=== PATIENT | male | born 1985 | race Caucasian/White ===

== ENCOUNTER 2025-02-13 10:53 | Emergency (ER) | payer BC, SELFPAY ==
[2025-02-13 11:07] VITALS: BP 138/84; PULSE 89; RESP 16; TEMP 36.6; O2SAT 100
--- OUTSIDE RECORDS SUMMARY | 2025-02-13 11:15 | XMS_ITS | Continuity of Care Document ---
Author Name [facility] Organization [facility] Care Team Providers Care Second Worker Name Role Phone [facility] Unavailable Unavailable Problems Combined list of problems from Department of Defense and Veterans Affairs facilities. It does not include entries that were removed or entered in error. 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 19 Condition [facility] Pain in left knee Active 11/08/19 19 Condition [facility] Pain in left thigh Active 11/08/19 19 Condition [facility] visit for: screening exam Inactive 05/25/20 11 Condition [facility] Adjustment disorder Active Condition [facility] Allergic Rhinitis ([facility] [id number]) Active Condition [facility] Chronic Pain Due to Injury ([facility] [id number]) Active Condition [facility] Exposure to potentially hazardous substance Active Condition [facility] Hyperlipidemia ([facility] [id number]) Active Condition [facility] Obstructive Sleep Apnea Syndrome ([facility] [id number]) Active Condition [facility] Past history of procedure Active Condition Nov 05, 2019 Entered By: JESSICA NICE Comment: 2010 left hip and leg shrapnel removal and femur fracture repair surgeries x 6Jan 2019 Entered By: JESSICA NICE Comment: 2015 vasectomyNov 05, 2019 Entered By: JESSICA NICE Comment: 2001 left knee medial meniscal and scar tissue repairNov 05, 2019 Entered By: JESSICA NICE Comment: wisdom teeth extractions (2) [facility] Patient Overweight ([facility] [id number]) Active Condition [facility] Sensorineural Hearing Loss ([facility] [id number]) Active Condition [facility] Tinnitus ([facility] [id number]) Active Condition [facility] Tobacco User ([facility] [id number]) Active Condition [facility] Vitamin D Deficiency ([facility] [id number]) Active Condition [facility] Obstructive sleep apnea (adult) (pediatric) Active Condition [facility] SENSORINEURAL HEARING LOSS Active Condition [facility] snoring Active Condition [facility] work-related environmental exposure Inactive Condition [facility] Need For Prophylactic Antibiotics Inactive Condition [facility] visit for: screening mental / developmental disorders Inactive Condition [facility] ASSESS PATIENT CONDITION WORK-RELATED OCCUPATIONAL DISEASE Active Condition [facility] TINNITUS SUBJECTIVE Active Condition [facility] Central Auditory Function Test Nonspecific Abnormal Findings Active Condition [facility] NICOTINE DEPENDENCE Active Condition [facility] pain in the thigh Active Condition [facility] Orthopedic Aftercare For Healing Fracture Inactive Condition [facility] Aftercare Following Surgery Active Condition [facility] CLOSED FRACTURE OF SHAFT OF FEMUR Inactive Condition [facility] PHASE OF LIFE OR LIFE CIRCUMSTANCE PROBLEM Active Condition [facility] visit for: exam following treatment Active Condition [facility] Aftercare Following Surgery Of Musculoskeletal System Inactive Condition [facility] Occupational Therapy Active Condition [facility] muscle weakness Active Condition [facility] visit for: screening exam pulmonary tuberculosis Inactive Condition [facility] ASSESSMENT OF PATIENT CONDITION WORK-RELATED Active Condition [facility] visit for: examination of subpopulation Active Condition [facility] visit for: screening exam neurological disorders traumatic brain injury Active Condition [facility] FRACTURE FEMUR, CLOSED Inactive Condition [facility] FRACTURE FEMUR, OPEN Inactive Condition [facility] SHRAPNEL WOUND OF THE BACK Inactive Condition [facility] SHRAPNEL WOUND OF THE LEG LEFT Inactive Condition [facility] visit for: follow-up exam Active Condition [facility] PATELLOFEMORAL SYNDROME Active Condition [facility] Overweight Active Condition [facility] Patient Education - Dietary Active Condition [facility] CONTACT DERMATITIS Active Condition [facility] PATELLAR CHONDROMALACIA Active Condition [facility] TENDONITIS PATELLAR Active Condition [facility] INTERNAL DERANGEMENT OF KNEE Active Condition [facility] Brace Inactive Condition neoprene hinged knee brace (L) [facility] Other Physical Therapy Active Condition [facility] joint pain, localized in the knee Active Condition [facility] visit for: ears / hearing exam Active Condition [facility] visit for: services physical Active Condition [facility] Patient Counseling: Inactive Condition [facility] NORMAL EXAMINATION Inactive Condition [facility] Allergies, Adverse Reactions, Alerts Combined list of allergies from Department of Defense and Veterans Affairs facilities. It does not include entries that were removed or entered in error. Substance Category Reaction Severity Reaction type Status Date Reported Comments Source No Known Allergies Drug allergy (disorder) active 9 [place], [place] Immunizations Combined list of available immunizations from the Department of Defense and Veterans Affairs facilities. Immunization Series Date Given Administered By Site Reaction Lot Number CVX Code Drug Clinical Research Technician Status Comments Source INFLUENZA, INJECTABLE, QUADRIVALENT, PRESERVATIVE FREE 2019 150 complet ed [facility] PNEUMOCOCCAL POLYSACCHARID E [id number] 2019 33 complet ed [facility] Influenza, injectable, quadrivalent, preservative free 1 2017 DARREL ROCKWELL [id number] 150 Seqirus (SEQ) complet ed Influenza , injectabl e, quadrival ent, preservat alexi free [facility] Influenza, injectable, quadrivalent, preservative free 1 2017 CHAPIN HARRELL [id number] 150 Seqirus (SEQ) complet ed Influenza , injectabl e, quadrival ent, preservat alexi free DoD TDAP 2017 115 complet ed HISTORICA L INFORMATI ON - FROM PATIENT'S WRITTEN RECORD, [facility] tetanus and diphtheria toxoids, adsorbed, preservative free, for adult use (2 Lf of tetanus toxoid and 2 Lf of diphtheria toxoid) 1 2017 CHAPIN HARRELL [id number] Sanofi Pasteur ([facility]) complet ed tetanus and diphtheri a toxoids, adsorbed, preservat alexi free, for adult use (2 Lf of tetanus toxoid and 2 Lf of diphtheri a toxoid) DoD Influenza, injectable, quadrivalent, preservative free 1 2016 TEZ MACK [id number] 150 Instant APIKline (SKB) complet ed Influenza , injectabl e, quadrival ent, preservat alexi free DoD Influenza, seasonal, injectable, preservative free 1 2015 [id number] 140 Seqirus (SEQ) comple t ed Influenza , seasonal, injectabl e, preservat alexi free DoD Influenza, injectable, quadrivalent, preservative free 1 2014 [id number] 150 SmithKline (SKB) complet ed Influenza , injectabl e, quadrival ent, preservat alexi free DoD Influenza, seasonal, injectable 1 2013 [id number] 141 Merck (MSD) complet ed Influenza , seasonal, injectabl e DoD Influenza, seasonal, injectable 1 2012 [id number] 141 [employer] (CSL) complet ed Influenza , seasonal, injectabl e DoD anthrax vaccine 4 [id number] [facility] [employer] [place] ([facility]) complet ed anthrax vaccine DoD typhoid Vi capsular polysaccharid e vaccine 1 2012 [id number] 101 Sanofi Pasteur (PMC) complet ed typhoid Vi capsular polysacch aride vaccine DoD Influenza, seasonal, injectable, preservative free 1 2011 [id number] 140 Sanofi Pasteur ([facility]) complet ed Influenza , seasonal, injectabl e, preservat alexi free DoD influenza virus vaccine, live, attenuated, for intranasal use 1 2010 [id number] 111 [employer] (MED) complet ed influenza virus vaccine, live, attenuate d, for intranasa l use DoD tuberculin skin test; purified protein derivative solution, intradermal 0 2010 Unknown, Provider [id number] Sanofi Pasteur ([facility]) complet ed tuberculi n skin test; purified protein derivativ e solution, intraderm al DoD influenza virus vaccine, split virus (incl. purified surface antigen)-reti red CODE 1 2009 [id number] 15 Unknown (UNK) comple t ed influenza virus vaccine, split virus (incl. purified surface antigen)- retired CODE DoD anthrax vaccine 3 [id number] [facility] [employer] [place] ([facility]) complet ed anthrax vaccine DoD typhoid Vi capsular polysaccharid e vaccine 1 2009 [id number] 101 Sanofi Pasteur ([facility]) complet ed typhoid Vi capsular polysacch aride vaccine DoD Novel influenza-H1N 1-09, injectable 1 2009 [id number] 127 Unknown (UNK) complet ed Novel influenza -S3P6-61, injectabl e DoD influenza virus vaccine, live, attenuated, for intranasal use 1 2008 UNK 111 Unknown (UNK) comple t ed influenza virus vaccine, live, attenuate d, for intranasa l use DoD influenza virus vaccine, live, attenuated, for intranasal use 1 2008 [id number] 111 [employer] (MED) complet ed influenza virus vaccine, live, attenuate d, for intranasa l use DoD influenza virus vaccine, live, attenuated, for intranasal use 1 2008 [id number] 111 Med[employer]genTec[employer] Inc[employer] (MED) complet ed influenza virus vaccine, live, attenuate d, for intranasa l use DoD anthrax vaccine 2 2007 UNK 24 [employer] [place] ([facility]) complet ed anthrax vaccine DoD hepatitis A and hepatitis B vaccine 3 2007 [id number] 104 [facility] (SKB) complet ed hepatitis A and hepatitis B vaccine DoD influenza virus vaccine, live, attenuated, for intranasal use 1 2006 [id number] 111 [employer] V[employer] Inc[employer] (MED) complet ed influenza virus vaccine, live, attenuate d, for intranasa l use DoD anthrax vaccine 1 2006 [id number] 24 [employer] [place] (MIP) complet ed anthrax vaccine DoD vaccinia (smallpox) vaccine 1 2006 [id number] Sameera (WAL) complet ed vaccinia (smallpox ) vaccine DoD typhoid Vi capsular polysaccharid e vaccine 1 2006 [id number] 101 [employer] (AVB) complet ed typhoid Vi capsular polysacch aride vaccine DoD hepatitis A and hepatitis B vaccine 2 2006 [id number] 104 SmithKline (SKB) complet ed hepatitis A and hepatitis B vaccine DoD measles, mumps and rubella virus vaccine 2 2006 UNK 03 Unknown (UNK) Not Given measles, mumps and rubella virus vaccine DoD varicella virus vaccine 1 2006 UNK 21 Unknown (UNK) Not Given varicella virus vaccine DoD measles, mumps and rubella virus vaccine 1 2006 [id number] 03 Merck (MSD) complet ed measles, mumps and rubella virus vaccine DoD poliovirus vaccine, inactivated 1 2006 [id number] 10 SmithKline (SKB) complet ed polioviru s vaccine, inactivat ed DoD influenza virus vaccine, split virus (incl. purified surface antigen)-reti red CODE 1 2006 UNK 15 Unknown (UNK) comple t ed influenza virus vaccine, split virus (incl. purified surface antigen)- retired CODE DoD hepatitis A and hepatitis B vaccine 1 2006 [id number] 104 SmithKline (SKB) complet ed hepatitis A and hepatitis B vaccine DoD meningococcal polysaccharid e (groups A, C, Y and W-135) diphtheria toxoid conjugate vaccine (MCV4P) 1 2006 [id number] 114 Unknown (UNK) comple t ed meningoco ccal polysacch aride (groups A, C, Y and W-135) diphtheri a toxoid conjugate vaccine (MCV4P) DoD tetanus toxoid, reduced diphtheria toxoid, and acellular pertu is vaccine, adsorbed 1 [id number] [place] [address] ([facility]) complet ed tetanus toxoid, reduced diphtheri a toxoid, and acellular pertussis vaccine, adsorbed DoD Results Combined list of recent chemistry, hematology and other laboratory results from Department of Defense and Veterans Affairs, ranging from 15 months to all on record, depending upon the facility. Order Name Results Value Reference Range Date Interpretation Specimen Comments Source TESTOSTERO NE, FREE PANEL TESTOSTERON E [MASS/VOLUM E] IN SERUM OR PLASMA 299 ng/dL 250 - 1100 04/06 Specimen Type: SERUM Comment: For additional information, please refer to http://[employer].Handle.IdeaString m/faq/ TotalTestost eroneLCMSMSF AQ165 (This link is being provided for informationa l/ educational purposes only.) This test was developed and its analytical performance characterist ics have been determined by [facility] [place], [place]. It has not been cleared or approved by the U.S. Food and Drug Administrati on. This assay has been validated pursuant to the CLIA regulations and is used for clinical purposes. Test Performed by [employer] [place], [employer] [place], [address] [place], [place] Js Martino M.D., Ph.D., Director of Laboratories , CLIA [id number] Ordering Provider: INDIGO CLINE Report Released Date/Time: March 06, 2023 09:40 AM Reporting Lab: [facility] [address] [facility] [phone] Performing Lab: [facility] [address] [facility] TESTOSTERO NE, FREE PANEL ALBUMIN [MASS/VOLUM E] IN SERUM OR PLASMA 4.6 g/dL 3.6 - 5.1 04/06 Specimen Type: SERUM Comment: For additional information, please refer to http://100e.coma [employer].Handle.IdeaString m/faq/ TotalTestost eroneLCMSMSF AQ165 (This link is being provided for informationa l/ educational purposes only.) This test was developed and its analytical performance characterist ics have been determined by [employer] [place], [place]. It has not been cleared or approved by the U.S. Food and Drug Administrati on. This assay has been validated pursuant to the CLIA regulations and is used for clinical purposes. Test Performed by [employer] [place], [employer] [place], [address] [place] [address] Js Martino M.D., Ph.D., Director of Laboratories , CLIA [id number] Ordering Provider: INDIGO CLINE Report Released Date/Time: March 06, 2023 09:40 AM Reporting Lab: [facility] [address] [place] [phone] Performing Lab: [address] [facility] TESTOSTERO NE, FREE PANEL TESTOSTERON E FREE [MOLES/VOLU ME] IN SERUM OR PLASMA 52.9 pg/mL 46.0 - 224.0 04/06 Specimen Type: SERUM Comment: For additional information, please refer to http://educa tion.Handle.co m/faq/ TotalTestost eroneLCMSMSF AQ165 (This link is being provided for informationa l/ educational purposes only.) This test was developed and its analytical performance characterist ics have been determined by [employer] [place], [place]. It has not been cleared or approved by the U.S. Food and Drug Administrati on. This assay has been validated pursuant to the CLIA regulations and is used for clinical purposes. Test Performed by [employer] [facility] [employer] [place], [address] [place], [place] Js Martino M.D., Ph.D., Director of Laboratories , CLIA [id number] Ordering Provider: INDIGO CLINE Report Released Date/Time: March 06, 2023 09:40 AM Reporting Lab: [facility] [address] [place] [phone] Performing Lab: [address] [facility] TESTOSTERO NE, FREE PANEL TESTOSTERON E.FREE+WEAK LY BOUND [MASS/VOLUM E] IN SERUM OR PLASMA 111.2 ng/dL 110.0 - 575.0 04/06 Specimen Type: SERUM Comment: For additional information, please refer to http://[employer].Stellarray m/faq/ TotalTestost eroneLCMSMSF AQ165 (This link is being provided for informationa l/ educational purposes only.) This test was developed and its analytical performance characterist ics have been determined by [facility] [place], [place]. It has not been cleared or approved by the U.S. Food and Drug Administrati on. This assay has been validated pursuant to the CLIA regulations and is used for clinical purposes. Test Performed by [facility], [facility], [address] [place] [address] Js Martino M.D., Ph.D., Director of Nexeon , CLIA [id number] Ordering Provider: INDIGO CLINE Report Released Date/Time: March 06, 2023 09:40 AM Reporting Lab: [facility] [address] [place] [address] Performing Lab: [address] [facility] TESTOSTER NE, FREE PANEL SEX HORMONE BINDING GLOBULIN [MOLES/VOLU ME] IN SERUM OR PLASMA 21 nmol/L 10 - 50 04/06 Specimen Type: SERUM Comment: For additional information, please refer to http://[employer].Stellarray m/faq/ TotalTestost eroneLCMSMSF AQ165 (This link is being provided for informationa l/ educational purposes only.) This test was developed and its analytical performance characterist ics have been determined by [facility] [place], [place]. It has not been cleared or approved by the U.S. Food and Drug Administrati on. This assay has been validated pursuant to the CLIA regulations and is used for clinical purposes. Test Performed by [facility], [employer] [facility], [address] [place], [place] Js Martino M.D., Ph.D., Director of Laboratories , CLIA [id number] Ordering Provider: INDIGO CLINE Report Released Date/Time: March 06, 2023 09:40 AM Reporting Lab: [facility] [address] [facility] [address] Performing Lab: [facility] [address] [facility] FREE T4 THYROXINE (T4) FREE [MASS/VOLUM E] IN SERUM OR PLASMA 1.10 ng/mL 0.70 - 1.48 04/06 Specimen Type: SERUM No comment entered. Ordering Provider: INDIGO CLINE Report Released Date/Time: March 06, 2023 09:40 AM Reporting Lab: [facility] [phone] Performing Lab: [facility] [phone] [place] [address] COMPREHENS ALEXI METABOLIC PANEL CREATININE [MASS/VOLUM E] IN SERUM OR PLASMA 1.22 mg/dL 0.70 - 1.30 04/06 Specimen Type: PLASMA Comment: No hemolysis noted. Ordering Provider: INDIGO CLINE Report Released Date/Time: March 06, 2023 09:40 AM Reporting Lab: [facility] [phone] Performing Lab: [facility] [phone] [place] [address] COMPREHENS ALEXI METABOLIC PANEL UREA NITROGEN [MASS/VOLUM E] IN SERUM OR PLASMA 22 mg/dL 9 - 25 04/06 Specimen Type: PLASMA Comment: No hemolysis noted. Ordering Provider: INDIGO CLINE Report Released Date/Time: March 06, 2023 09:40 AM Reporting Lab: [facility] [address] Performing Lab: [facility] COMPREHENS ALEXI METABOLIC PANEL GLUCOSE [MASS/VOLUM E] IN SERUM OR PLASMA 100 mg/dL 72 - 99 04/06 H Specimen Type: PLASMA Comment: No hemolysis noted. Ordering Provider: INDIGO CLINE Report Released Date/Time: March 06, 2023 09:40 AM Reporting Lab: [facility] [place] [address] Performing Lab: [facility] COMPREHENS ALEXI METABOLIC PANEL SODIUM [MOLES/VOLU ME] IN SERUM OR PLASMA 139 meq/L 136 - 145 04/06 Specimen Type: PLASMA Comment: No hemolysis noted. Ordering Provider: INDIGO CLINE Report Released Date/Time: March 06, 2023 09:40 AM Reporting Lab: [facility] [place] [address] Performing Lab: [facility] [place] [phone] COMPREHENS ALEXI METABOLIC PANEL POTASSIUM [MOLES/VOLU ME] IN SERUM OR PLASMA 4.0 meq/L 3.5 - 5.0 04/06 Specimen Type: PLASMA Comment: No hemolysis noted. Ordering Provider: INDIGO CLINE Report Released Date/Time: March 06, 2023 09:40 AM Reporting Lab: [facility] [place] [address] Performing Lab: [facility] COMPREHENS ALEXI METABOLIC PANEL CHLORIDE [MOLES/VOLU ME] IN SERUM OR PLASMA 105 meq/L 98 - 107 04/06 Specimen Type: PLASMA Comment: No hemolysis noted. Ordering Provider: INDIGO CLINE Report Released Date/Time: March 06, 2023 09:40 AM Reporting Lab: [facility] [place] [address] Performing Lab: [facility] COMPREHENS ALEXI METABOLIC PANEL CARBON DIOXIDE, TOTAL [MOLES/VOLU ME] IN SERUM OR PLASMA 22 meq/L 22 - 31 04/06 Specimen Type: PLASMA Comment: No hemolysis noted. Ordering Provider: INDIGO CLINE Report Released Date/Time: March 06, 2023 09:40 AM Reporting Lab: [facility] [place] [address] Performing Lab: [facility] COMPREHENS ALEXI METABOLIC PANEL CALCIUM [MASS/VOLUM E] IN SERUM OR PLASMA 9.6 mg/dL 8.4 - 10.4 04/06 Specimen Type: PLASMA Comment: No hemolysis noted. Ordering Provider: INDIGO CLINE Report Released Date/Time: March 06, 2023 09:40 AM Reporting Lab: [facility] [place] [address] Performing Lab: [facility] COMPREHENS ALEXI METABOLIC PANEL PROTEIN [MASS/VOLUM E] IN SERUM OR PLASMA 8.1 g/dL 6.0 - 8.6 04/06 Specimen Type: PLASMA Comment: No hemolysis noted. Ordering Provider: INDIGO CLINE Report Released Date/Time: March 06, 2023 09:40 AM Reporting Lab: [facility] [place] [address] Performing Lab: [facility] COMPREHENS ALEXI METABOLIC PANEL ALBUMIN [MASS/VOLUM E] IN SERUM OR PLASMA 4.5 g/dL 3.4 - 5.0 04/06 Specimen Type: PLASMA Comment: No hemolysis noted. Ordering Provider: INDIGO CLINE Report Released Date/Time: March 06, 2023 09:40 AM Reporting Lab: [facility] [place] [address] Performing Lab: [facility] COMPREHENS ALEXI METABOLIC PANEL BILIRUBIN.T OTAL [MASS/VOLUM E] IN SERUM OR PLASMA 0.4 mg/dL 0.2 - 1.2 04/06 Specimen Type: PLASMA Comment: No hemolysis noted. Ordering Provider: INDIGO CLINE Report Released Date/Time: March 06, 2023 09:40 AM Reporting Lab: [facility] [place] [address] Performing Lab: [facility] COMPREHENS ALEXI METABOLIC PANEL ALKALINE PHOSPHATASE [ENZYMATIC ACTIVITY/VO LUME] IN SERUM OR PLASMA 61 U/L 40 - 150 04/06 Specimen Type: PLASMA Comment: No hemolysis noted. Ordering Provider: INDIGO CLINE Report Released Date/Time: March 06, 2023 09:40 AM Reporting Lab: [facility] [place] [address] Performing Lab: [facility] COMPREHENS ALEXI METABOLIC PANEL ASPARTATE AMINOTRANSF ERASE [ENZYMATIC ACTIVITY/VO LUME] IN SERUM OR PLASMA 25 U/L 5 - 34 04/06 Specimen Type: PLASMA Comment: No hemolysis noted. Ordering Provider: INDIGO CLINE Report Released Date/Time: March 06, 2023 09:40 AM Reporting Lab: [facility] [place] [address] Performing Lab: [facility] [phone] COMPREHENS ALEXI METABOLIC PANEL ALANINE AMINOTRANSF ERASE [ENZYMATIC ACTIVITY/VO LUME] IN SERUM OR PLASMA 30 U/L 8 - 40 04/06 Specimen Type: PLASMA Comment: No hemolysis noted. Ordering Provider: INDIGO CLINE Report Released Date/Time: March 06, 2023 09:40 AM Reporting Lab: [facility] [place] [address] Performing Lab: [facility] COMPREHENS ALEXI METABOLIC PANEL GLOMERULAR FILTRATION RATE/1.73 SQ M.PREDICTED [VOLUME RATE/AREA] IN SERUM, PLASMA OR BLOOD BY CREATININE- BASED FORMULA (CKD-EPI 2020) 78.31 04/06 Specimen Type: PLASMA Comment: No hemolysis noted. Ordering Provider: INDIGO CLINE Report Released Date/Time: March 06, 2023 09:40 AM Reporting Lab: [facility] [place] [address] Performing Lab: [facility] LIPID PANEL (STL) CHOLESTEROL [MASS/VOLUM E] IN SERUM OR PLASMA 196 mg/dL 0 - 200 04/06 Specimen Type: PLASMA Comment: No hemolysis noted. Ordering Provider: INDIGO CLINE Report Released Date/Time: March 06, 2023 09:40 AM Reporting Lab: [facility] [place] [phone] Performing Lab: [facility] [address] LIPID PANEL (STL) TRIGLYCERID E [MASS/VOLUM E] IN SERUM OR PLASMA 217 mg/dL 0 - 150 04/06 H Specimen Type: PLASMA Comment: No hemolysis noted. Ordering Provider: INDIGO CLINE Report Released Date/Time: March 06, 2023 09:40 AM Reporting Lab: [facility] [place] [address] Performing Lab: [facility] [address] LIPID PANEL (STL) CHOLESTEROL IN LDL [MASS/VOLUM E] IN SERUM OR PLASMA BY CALCULATION 118 mg/dL 04/06 Specimen Type: PLASMA Comment: No hemolysis noted. Ordering Provider: INDIGO CLINE Report Released Date/Time: March 06, 2023 09:40 AM Reporting Lab: [facility] [place] [address] Performing Lab: [facility] [address] LIPID PANEL (STL) CHOLESTEROL IN HDL [MASS/VOLUM E] IN SERUM OR PLASMA 35 mg/dL 04/06 L Specimen Type: PLASMA Comment: No hemolysis noted. Ordering Provider: INDIGO CLINE Report Released Date/Time: March 06, 2023 09:40 AM Reporting Lab: [facility] [place] [address] Performing Lab: [facility] [address] CBC LEUKOCYTES [#/VOLUME] IN BLOOD BY AUTOMATED COUNT 7.0 10*3/u L 3.6 - 11.2 04/06 Specimen Type: BLOOD No comment entered. Ordering Provider: INDIGO CLINE Report Released Date/Time: March 06, 2023 09:40 AM Reporting Lab: [facility] [place] [address] Performing Lab: [facility] CBC ERYTHROCYTE S [#/VOLUME] IN BLOOD BY AUTOMATED COUNT 5.12 10*6/u L 4.10 - 5.70 04/06 Specimen Type: BLOOD No comment entered. Ordering Provider: INDIGO CLINE Report Released Date/Time: March 06, 2023 09:40 AM Reporting Lab: [facility] [place] [address] Performing Lab: [facility] [address] CBC HEMOGLOBIN [MASS/VOLUM E] IN BLOOD 15.3 g/dL 13.1 - 16.8 04/06 Specimen Type: BLOOD No comment entered. Ordering Provider: INDIGO CLINE Report Released Date/Time: March 06, 2023 09:40 AM Reporting Lab: [facility] [place] [address] Performing Lab: [facility] CBC HEMATOCRIT [VOLUME FRACTION] OF BLOOD 43.6 38.2 - 48.4 04/06 Specimen Type: BLOOD No comment entered. Ordering Provider: INDIGO CLINE Report Released Date/Time: March 06, 2023 09:40 AM Reporting Lab: [facility] [place] [address] Performing Lab: [facility] CBC MCV [ENTITIC VOLUME] BY AUTOMATED COUNT 85.2 fL 80.0 - 100.0 04/06 Specimen Type: BLOOD No comment entered. Ordering Provider: INDIGO CLINE Report Released Date/Time: March 06, 2023 09:40 AM Reporting Lab: [facility] [place] [address] Performing Lab: [facility] CBC MCH [ENTITIC MASS] BY AUTOMATED COUNT 29.9 pg 27.0 - 34.0 04/06 Specimen Type: BLOOD No comment entered. Ordering Provider: INDIGO CLINE Report Released Date/Time: March 06, 2023 09:40 AM Reporting Lab: [facility] [place] [address] Performing Lab: [facility] CBC MCHC [MASS/VOLUM E] BY AUTOMATED COUNT 35.1 g/dL 33.0 - 36.0 04/06 Specimen Type: BLOOD No comment entered. Ordering Provider: INDIGO CLINE Report Released Date/Time: March 06, 2023 09:40 AM Reporting Lab: [facility] [place] [address] Performing Lab: [facility] CBC PLATELETS [#/VOLUME] IN BLOOD BY AUTOMATED COUNT 264 10*3/u L 150 - 400 04/06 Specimen Type: BLOOD No comment entered. Ordering Provider: INDIGO CLINE Report Released Date/Time: March 06, 2023 09:40 AM Reporting Lab: [facility] [place] [address] Performing Lab: [facility] CBC PLATELET MEAN VOLUME [ENTITIC VOLUME] IN BLOOD BY AUTOMATED COUNT 9.5 fL 7.5 - 11.2 04/06 Specimen Type: BLOOD No comment entered. Ordering Provider: INDIGO CLINE Report Released Date/Time: March 06, 2023 09:40 AM Reporting Lab: [facility] [place] [address] Performing Lab: [facility] CBC ERYTHROCYTE DISTRIBUTIO N WIDTH [RATIO] BY AUTOMATED COUNT 11.6 11.8 - 15.1 04/06 L Specimen Type: BLOOD No comment entered. Ordering Provider: INDIGO CLINE Report Released Date/Time: March 06, 2023 09:40 AM Reporting Lab: [facility] [phone] Performing Lab: [facility] [id number] [place] [address] CBC LYMPHOCYTES /100 LEUKOCYTES IN BLOOD BY AUTOMATED COUNT 38 04/06 Specimen Type: BLOOD No comment entered. Ordering Provider: INDIGO CLINE Report Released Date/Time: March 06, 2023 09:40 AM Reporting Lab: [facility] [phone] Performing Lab: [facility] [address] CBC MONOCYTES/1 00 LEUKOCYTES IN BLOOD BY AUTOMATED COUNT 5 04/06 Specimen Type: BLOOD No comment entered. Ordering Provider: INDIGO CLINE Report Released Date/Time: March 06, 2023 09:40 AM Reporting Lab: [facility] [place] [address] Performing Lab: [facility] CBC NEUTROPHILS /100 LEUKOCYTES IN BLOOD BY AUTOMATED COUNT 54 04/06 Specimen Type: BLOOD No comment entered. Ordering Provider: INDIGO CLINE Report Released Date/Time: March 06, 2023 09:40 AM Reporting Lab: [facility] [phone] Performing Lab: [facility] CBC EOSINOPHILS /100 LEUKOCYTES IN BLOOD BY AUTOMATED COUNT 3 04/06 Specimen Type: BLOOD No comment entered. Ordering Provider: INDIGO CLINE Report Released Date/Time: March 06, 2023 09:40 AM Reporting Lab: [facility] [place] [address] Performing Lab: [facility] [phone] [place] [address] CBC BASOPHILS/1 00 LEUKOCYTES IN BLOOD BY AUTOMATED COUNT 0 04/06 Specimen Type: BLOOD No comment entered. Ordering Provider: INDIGO CLINE Report Released Date/Time: March 06, 2023 09:40 AM Reporting Lab: [facility] [place] [address] Performing Lab: [facility] CBC LYMPHOCYTES [#/VOLUME] IN BLOOD BY AUTOMATED COUNT 2.69 10*3/u L 0.77 - 4.50 04/06 Specimen Type: BLOOD No comment entered. Ordering Provider: INDIGO CLINE Report Released Date/Time: March 06, 2023 09:40 AM Reporting Lab: [facility] [place] [address] Performing Lab: [facility] CBC MONOCYTES [#/VOLUME] IN BLOOD BY AUTOMATED COUNT 0.32 10*3/u L 0.19 - 1.50 04/06 Specimen Type: BLOOD No comment entered. Ordering Provider: INDIGO CLINE Report Released Date/Time: March 06, 2023 09:40 AM Reporting Lab: [facility] [place] [address] Performing Lab: [facility] CBC NEUTROPHILS [#/VOLUME] IN BLOOD BY AUTOMATED COUNT 3.78 10*3/u L 2.10 - 8.00 04/06 Specimen Type: BLOOD No comment entered. Ordering Provider: INDIGO CLINE Report Released Date/Time: March 06, 2023 09:40 AM Reporting Lab: [facility] [address] Performing Lab: [facility] [phone] CBC EOSINOPHILS [#/VOLUME] IN BLOOD BY AUTOMATED COUNT 0.21 10*3/u L 0.00 - 0.60 04/06 Specimen Type: BLOOD No comment entered. Ordering Provider: INDIGO CLINE Report Released Date/Time: March 06, 2023 09:40 AM Reporting Lab: [facility] [place] [address] Performing Lab: [facility] CBC BASOPHILS [#/VOLUME] IN BLOOD BY AUTOMATED COUNT 0.03 10*3/u L 0.00 - 0.20 04/06 Specimen Type: BLOOD No comment entered. Ordering Provider: INDIGO CLINE Report Released Date/Time: March 06, 2023 09:40 AM Reporting Lab: [facility] [place] [address] Performing Lab: [facility] HGA1C HEMOGLOBIN A1C/HEMOGLO BIN.TOTAL IN BLOOD 5.8 4.0 - 6.0 04/06 Specimen Type: BLOOD No comment entered. Ordering Provider: INDIGO CLINE Report Released Date/Time: March 06, 2023 09:40 AM Reporting Lab: [facility] [place] [address] Performing Lab: [facility] [place] [phone] TSH (MA-PB-STL ) THYROTROPIN [UNITS/VOLU ME] IN SERUM OR PLASMA 1.886 u[IU]/ mL 0.470 - 5.000 04/06 Specimen Type: PLASMA Comment: No hemolysis noted. Ordering Provider: INDIGO CLINE Report Released Date/Time: March 06, 2023 09:40 AM Reporting Lab: [facility] [phone] Performing Lab: [facility] [phone] [facility] VITAMIN D, 25-HYDROXY 25-HYDROXYV ITAMIN D3 [MASS/VOLUM E] IN SERUM OR PLASMA 33.2 ng/mL 30 - 96 04/06 Specimen Type: SERUM No comment entered. Ordering Provider: INDIGO CLINE Report Released Date/Time: March 06, 2023 09:40 AM Reporting Lab: [facility] [phone] Performing Lab: [facility] [phone] [place] [address] Encounters Combined list of: 1) Encounters from [facility] facilities going backup to the last 18 months, not all [place] inpatient encounters are included; 2) Encounters from the Department of [facility] facilities going backup to 280 months. Location Location Details Encounter Type Encounter Number Reason For Visit Attending Provider ADM Date DC Date Status Disposition Source [facility] [employer]) OUTPATIENT [id number] CAMPOS VANEGAS 11/01 Released w/o Limitations [facility] [employer] [employer]) OUTPATIENT [id number] [address] [place], [place] [address]T MONE ABEBE S. 11/06 Released w/o Limitations [facility] [employer] [facility] [employer] OUTPATIENT [id number] left knee pain LEAH RÍOS. 12/04 Released w/o Limitations [facility] [employer] [facility] [employer]([facility]) OUTPATIENT [id number] L knee pain 2/506 ENRIQUE SCHAEFFER S 10/03 Released w/o Limitations [facility] [employer]) [facility] [employer] Physical Therapy) OUTPATIENT [id number] joint pain, localiz ed in the knee TERRA SORIANO Monica 11/01 Released with Work/Duty Limitations [facility] [employer] Physica l Therapy ) [facility] [employer] OUTPATIENT [id number] tinaADAN Pichardo 11/14 Released with Work/Duty Limitations [facility] [employer] Physica [facility] ) [facility] [employer] Physical [facility] OUTPATIENT [id number] Profile request . TERRA SORIANO Monica 11/14 Released with Work/Duty Limitations [facility] [employer] Physica [facility] ) [facility] [employer] Physical [facility] OUTPATIENT [id number] MRI TERRA SORIANO Monica 12/25 Released with Work/Duty Limitations [facility] [employer] Physica l Therapy ) [facility] [employer] [place] OUTPATIENT [id number] MARLENE WOODS 12/25 Released w/o Limitations [facility] [employer] [facility] [employer]) [place] [id number] [facility] TERRA SORIANO Monica 01/09 Released w/o Limitations [facility] [employer] [facility] [employer]) [place] [id number] Pas entered the order [facility] ANJU SCHAEFFER 01/14 Released with Work/Duty Limitations [facility] [employer] [facility] [employer] [id number] Mri results Left knee ANJU SCHAEFFER 02/23 Released with Work/Duty Limitations [facility] [employer] [facility] [employer] OUT[place] [id number] RASH/HARRISON NDS/GABRIELA IN/CHES T ERIN MCNALLY 05/24 Released w/o Limitations [facility] [employer] [facility] [employer] OUT[place] [id number] Left Knee ERIN MCNALLY 07/19 Released with Work/Duty Limitations [facility] [employer] [facility] [employer] OUTPATIENT [id number] CITLALI VILLAGRAN 08/11 Released w/o Limitations [facility] [employer]) [facility] [employer]) TELE CONSULT [id number] L KNEE CONSULT /PHY THERAPY ERIN MCNALLY 08/18 [facility] [employer]) [facility] [employer] OUTPATIENT [id number] [employer] CITLALI VILLAGRAN 03/01 Released w/o Limitations [facility] [employer]) [facility] [employer] OUTPATIENT [id number] [facility] TEDDY MCHUGH 05/19 Released w/o Limitations [facility] [employer] ) [facility] OUTPATIENT [id number] 04/26 Released w/o Limitations [facility] OUTPATIENT [id number] 04/27 Admitted [facility] OUTPATIENT [id number] 04/28 Released w/o Limitations Theater Facilit y [employer] C DIRECT TO [facility] FROM OTHER THAN ER OR APU [id number] VERONICA HARRELL 04/28 [facility](ZZZLS L TBI Screening Neurology ) INPATIENT [id number] oef/ond concuss ion screen TIFF CURTIS Kari 04/28 Inpatient- Still a Patient [facility](ZZZ LSL TBI Screeni ng Neurolo gy) Deven sy [facility] Travis ANDUJAR DIRECT TO [facility] FROM OTHER THAN ER OR U [facility]-[id number] SALVADORATA 05/04 RETURNED TO DUTY DJamar hickey [facility] Travis sy [facility] Travis ANDUJAR(Social Work [facility]) INPATIENT [id number] Social Work Screeni FRED Gonzalez 05/05 Inpatient- Still a Patient DJamar hickey [facility] Travis ANDUJAR(Soci al Work [facility]) Deven sy [facility] Kaiden ANDUJAR(Physic al Therapy [facility]) INPATIENT [id number] JOSSELINE ARCHULETA 05/10 Inpatient- Still a Patient DJamar hickey [facility] Travis ANDUJAR(Phys ical Therapy [facility]) Deven sy [facility] [place] ANDUJAR(Physic al Therapy [facility]) INPATIENT [id number] JOSSELINE ARCHULETA 05/11 Inpatient- Still a Patient DJamar hickey [facility] Travis ANDUJAR(Phys ical Therapy [facility]) Deven sy [facility] Travis ANDUJAR(Occupa tional Therapy) INPATIENT [id number] TARIQ MURRIETA 05/11 Inpatient- Still a Patient DJamar hickey [facility] Travis ANDUJAR(Occu pationa l Therapy ) Deven sy [facility] Travis ANDUJAR(Allerg y) INPATIENT [id number] PPD Placeme nt 9E JESSICA ROYAL 05/12 Inpatient- Still a Patient D. D. Skyler hickey [facility] Travis ANDUJAR(Sumit rgy) DJamar sy [facility] Travis ANDUJAR(Physic al Therapy [facility]) INPATIENT [id number] JOSSELINE ARCHULETA 05/12 Inpatient- Still a Patient Deven Holland wer [facility] [place](Phys ical Therapy [facility]) Deven García r [facility] [place]Physic [place] [facility]) INPATIENT [id number] AssessJOSSELINE Musa 05/12 Inpatient- Still a Patient DJamar Holland wer [facility] [place](Phys ical Therapy [facility]) Deven García r [facility] [place]Occup[place]) INPATIENT [id number] TARIQ MURRIETA 05/12 Inpatient- Still a Patient DJamar Holland wer [facility] [place](Occu pationa [place] Therapy ) Deven García r [facility] [place](Physic [place] Therapy [facility]) INPATIENT [id number] PICKETTTASHIA MENENDEZ 05/13 Inpatient- Still a Patient DJamar Holland wer [facility] [place](Phys ical Therapy [facility]) Deven García r [facility] [place](Physic [place] Therapy [facility]) INPATIENT [id number] PICKETTTASHIA MENENDEZ 05/14 Inpatient- Still a Patient DJamar hickey [facility] [place](Phys ical Therapy [facility]) Deven sy [facility] [place](All[place]) INPATIENT [id number] PPD READ--- --9---JESSICA WICK 05/15 Inpatient- Still a Patient DJamar Holland wer [facility] [place](Sumit [place]gy) Deven García r [facility] [place]up[place]) INPATIENT [id number] TARIQ MURRIETA 05/15 Inpatient- Still a Patient DJamar Holland wer [facility] [place](Occu [place]ationa [place] Therapy ) Deven García r [facility] [place]Physic [place] [facility]) INPATIENT [id number] JOSSELINE ARCHULETA 05/16 Inpatient- Still a Patient DJamar Holland wer [facility] [place](Phys ical Therapy [facility]) Deven García r [facility] [place](Social Work [facility]) INPATIENT [id number] SW Progres s Note/Me t with patient and JOSE ANTONIO AGOSTO F 05/16 Inpatient- Still a Patient D. D. Shanellamanda wer [facility] [place]Soci [place] [facility] DJamar Reeceenhnicholee r [facility] [place]Physic [place] [facility]) INPATIENT [id number] JOSSELINE ARCHULETA D 05/17 Inpatient- Still a Patient D. D. Katio wer [facility] [place](Phys ical [place] [facility]) D. Deven Reeceenhnicholee r [facility] [place] [facility]) INPATIENT [id number] Sandores s note/co ord of care JOSE ANTONIO AGOSTO F 05/17 Inpatient- Still a Patient D. D. Shanellamanda wer [facility] [place] [facility]) D. Deven Laurene r [facility] [place]Phys[place] [facility]) INPATIENT [id number] Treatme nt JOSSELINE ARCHULETA D 05/18 Inpatient- Still a Patient D. D. Shanellamanda wer [facility] [place]Phys ical [place] [facility]) D. Deven García r [facility] [place]Phys[place] [facility]) INPATIENT [id number] JOSSELINE ARCHULETA D 05/18 Inpatient- Still a Patient D. D. Shanellamanda wer [facility] [place]Phys [place] [facility]) D. Deven García r [facility] [place]Phys[place] [facility]) INPATIENT [id number] JOSSELINE ARCHULETA 05/19 Inpatient- Still a Patient D. D. Shanellzairasaravanan wer [facility] [place] [facility]) DJamar García [facility] [place] [facility]) INPATIENT [id number] JOSSELINE ARCHULETA D 05/22 Inpatient- Still a Patient D. D. Shanellamanda wer [facility] [place] [facility]) Carrie Redd [place] [facility]) OUTPATIENT [id number] l-knee [id number] HOLGER DENIS V 05/25 Released with Work/Duty Limitations [facility] [employer] [facility] [facility] [employer] [facility] TELE CONSULT [id number] needs referra l to ortho for femur fractur e. HOLGER DENIS V 06/01 [facility] [employer] [facility] [facility] [employer]) OUT[place] [id number] Afterca re Followi ng Surgery Of Musculo skeleta l System ANJU SCHAEFFER Tammy 06/05 Released with Work/Duty Limitations [facility], [employer], [place] ) [facility], [employer], [place]) OUTPATIENT [id number] Closed fractur e of shaft of femur CLARI ZAMORA 06/06 Released w/o Limitations [facility], [employer](Phys [place] ) [facility], [employer]) OUTPATIENT [id number] f/u CLARI ZAMORA 06/09 Released w/o Limitations [facility], [employer] ) [facility] [employer]) OUTPATIENT [id number] f/u CLARI ZAMORA 06/13 Released w/o Limitations [facility], [employer] ) [facility], [employer]) OUTPATIENT [id number] f/u NOAHCLARI 06/15 Released w/o Limitations [facility] [employer] [facility] [employer] [place]) [place] [id number] f/u Lissett meredith PENAMELEND ALEXANDRA, JUDY 06/20 Released w/o Limitations [facility] [employer] [facility] [employer]) [place] [id number] post op ROMIE Nash 06/23 Released w/o Limitations [facility] [employer] [facility] [employer] [id number] F/U left femur ANJU SCHAEFFER 06/27 Released w/o Limitations [facility] [employer] [facility] [employer]) [place] [id number] ROMIE Horton 06/28 Released w/o Limitations [facility] [employer] [facility] [employer] [id number] follow up left leg ANJU SCHAEFFER 07/17 Released with Work/Duty Limitations [facility] [employer] [facility] [employer] [id number] ROMIE Horton 07/18 Released w/o Limitations [facility] [employer] [facility] [employer]) [place] [id number] f/u PENAMELEND EZ, JUDY 07/19 Released w/o Limitations [facility] [employer] [facility] [employer] [id number] ROMIE Horton 07/20 Released w/o Limitations [facility] [employer] [facility] [employer] [id number] ok ROMIE Hoskins 07/24 Released w/o Limitations [facility] [employer] [facility] [employer]) [place] [id number] add per ORLANDO Rand 07/26 Released w/o Limitations [facility] [employer] [facility] [employer]) [place] [id number] ok romie DENNIS ROMIE M 07/28 Released w/o Limitations [facility] [employer] [facility] [employer]) [place] [id number] DENNISHLIARYOSIRIS Valenzuela 08/01 Released w/o Limitations [facility] [employer] [facility] [employer]) [place] [id number] JOMAR MEDINA 08/03 Released w/o Limitations [facility] [employer] [facility] [employer]) [place] [id number] ORLANDO MAR 08/07 Released w/o Limitations [facility] [employer] [facility] [employer]) [place] [id number] DENNISHILARYOSIRIS Valenzuela 08/09 Released w/o Limitations [facility] [employer] [facility] [employer] [id number] DENNISHILARYOSIRIS Valenzuela 08/11 Released w/o Limitations [facility] [employer] [facility] [employer] [id number] DENNISHILARYOSIRIS Valenzuela 08/15 Released w/o Limitations [facility] [employer] [facility] [employer] [id number] follow up left femur ANJU SCHAEFFER 08/15 Released with Work/Duty Limitations [facility] [employer] [facility] [employer] [id number] ROMIE COLLINS 08/17 Released w/o Limitations [facility] [employer] [facility] [employer] [id number] f/u L leg PENAMELEND EZ, JUDY 08/28 Released w/o Limitations [facility] [employer] [facility] [employer]) [place] [id number] ROMIE COLLINS Nicolas 08/31 Released w/o Limitations [facility] [employer] [facility] [employer] [id number] ROMIE COLLINS 09/06 Released w/o Limitations [facility] [employer] [facility] [employer]) [place] [id number] EVA VITAL 09/12 Released w/o Limitations [facility] [employer] [facility] [employer] [id number] ROMIE COLLINS Nicolas 09/18 Released w/o Limitations [facility] [employer] [facility] [employer] [id number] f/u PENAMELEND EZ, JUDY 09/25 Released w/o Limitations [facility] [employer] [facility] [employer] [id number] F/u left leg ANJU SCHAEFFER 10/02 Released with Work/Duty Limitations [facility] [employer] [facility] [employer] [id number] f/u PENAMELEND EZ, JUDY 11/24 Released w/o Limitations [facility] [employer] [facility] [employer] [id number] f/u left femur ANJU SCHAEFFER 11/27 Released with Work/Duty Limitations [facility] [employer] [facility] [employer] [id number] annual BUTCH COULTER 12/26 Released w/o Limitations [facility] [employer] [facility] [employer] [id number] f/u PENAMELEND EZ, JUDY 12/26 Released w/o Limitations [facility] [employer] [facility] [employer] [facility] OUT[place]IENT [id number] Profile update 2-506 NAVIN THOMASJONY Cardenas 01/24 Released with Work/Duty Limitations [facility] [employer] [facility] [facility] [employer] [id number] f/u left leg ANJU SCHAEFFER 03/21 Released with Work/Duty Limitations [facility] [employer] [facility] [employer] [id number] fu lt femur ANJU SCHAEFFER 06/12 Released with Work/Duty Limitations [facility] [employer] [facility] [employer] [facility] [id number] Left femur, 2/506 KATHERINE THOMAS Theersa 06/18 Released with Work/Duty Limitations [facility] [employer] [facility] [facility] [employer] [id number] pre deploy AMORINE, BROWN M 09/30 Released w/o Limitations [facility] [employer] [place] [facility] [employer] [place]iology ) OUTPATIENT [id number] -3 SARAH WATTS 10/24 Released w/o Limitations [facility] [employer] [place]iolo gy) [facility] [employer]) OUTPATIENT [id number] MAGDALENA CANNON Lissett 09/20 Released w/o Limitations [facility] [employer] [facility] [employer] [place] OUTPATIENT [id number] ENMANUEL PARKINSON V 11/11 Released w/o Limitations [facility] [employer] [place] [facility] [employer] [place]iology ) OUTPATIENT [id number] -3 SARAH WATTS 02/03 Released w/o Limitations [facility] [employer] [place]iolo gy) [facility] [employer] [place] OUTPATIENT [id number] annual MICHI KIKA 08/19 Released w/o Limitations [facility] [employer] [place] [facility] [employer] [place]iology [place] OUTPATIENT [id number] -3 SARAH WATTS 08/24 Released w/o Limitations [facility] [employer] [place]iolo [place]) [facility] [employer] OUTPATIENT [id number] referra l consult JOSE R JOHNSON 08/27 Released w/o Limitations [facility] [employer] [place] [facility] [employer] [place] TELE CONSULT [id number] Notes Entered by: CLEM LUO 18 Jan 2015 1337 ------- ------- ------- ------- -- Network Results - Sleep Study 12-04-14 Please look in artifac ts and images. ELIZABETHJOSE R 01/18 [facility] [employer] [facility] [employer] [place] TELE CONSULT [id number] Notes Entered by: CLEM LUO 17 Feb 2015 1219 ------- ------- ------- ------- -- Network Results - Sleep Study with CPAP order 01-14-15 Please look in artifac ts ELIZABETHJOSE R 02/17 [facility] [employer] [place] [facility] [employer] [facility] OUTPATIENT [id number] PHA 3-320 ELIZABETHJOSE R 05/19 Released w/o Limitations [facility] [employer] [facility] [place] [facility] [employer] [facility] OUT[place]IENT [id number] Sore throat/ Cough JOSE R JOHNSON 06/23 Released w/o Limitations [facility] [employer] [facility] [place] [facility] [employer] [facility] OUTPATIENT [id number] Rash on back and hands JOSE R JOHNSON 07/29 Released w/o Limitations [facility] [employer] [facility] [place] [facility] [employer] [place] [id number] banner BLAYNE JI 08/03 Released w/o Limitations [facility] [employer] [place] [facility] [employer] [place]iology ) OUTPATIENT [id number] h-3 SARAH WATTS 08/05 [place] [place] TELE CONSULT [id number] Notes Entered by: PRAFUL JOHNSON 06 Aug 2015 0833 ------- ------- ------- ------- -- Biopsy results RICHIE WARD Brit 08/06 [place] Self [facility] [place] [facility] [place] OUTPATIENT [id number] referra l for vasecto DIPTI Denny 05/15 [place]ased [place] Limitations [place] [place] [place] OUTPATIENT [id number] [employer] TE[employer]ER TANVI MA 05/26 [place]itations [place] [place] [place] OUT[place] [id number] Notes Entered by: CAMPOS TRUONG 29 May 2016 1624 ------- ------- ------- ------- -- Opioid Machine Spreader CAMPOS Mohr 05/29 [place]itations [place] [place] [place] [id number] VAS PROC TANVI TOUSSAINT 06/01 [place] [place] [place] TELE CONSULT [id number] Notes Entered by: Theresa CYR 20 Jul 2016 1009 ------- ------- ------- ------- -- Post Vas LEE ANN Blum 07/20 [place] [place] [place] TELE CONSULT [id number] Notes Entered by: SLIME TOUSSAINT 25 Jul 2016 1701 ------- ------- ------- ------- -- Lab Results TANVI TOUSSAINT 07/25 [place] [place] [place] OUTPATIENT [id number] Notes Entered by: TEZ CENTENO 21 Aug 2016 1311 ------- ------- ------- ------- -- DIPTI YEH 08/21 [place] [place] [place] OUTPATIENT [id number] CPAP DIPTI Smyth 08/28 [place] [place] [id number] S/GARCÍA L HEARING EXAM NEW ALVARENGA 09/25 [place] Sleep Disorder [facility] OUTPATIENT [id number] Obstruc tive sleep apnea (adult) ELIUD GUPTA 09/29 [place]ased [place] Sleep Disorde [facility] OUTPATIENT [id number] h3,asym ,mask,t inn// ALDENGARY VALENTIN Viktoria 10/04 Released with Work/Duty [place] OUTPATIENT [id number] follow up,azucena salas,h 3 profJamar(L TC O)//[phone] CLEMENTE FELIX 11/28 [place]ased [place]) [place] [id number] LOWER BACK PAIN AUBREY CHERY 05/27 Sick at Home/Quarter s [place] OUTPATIENT [id number] Notes Entered by: TEZ CENTENO 17 Aug 2017 1344 ------- ------- ------- ------- -- VICENTA Day 08/17 [place] Aid Station) OUTPATIENT [id number] Notes Entered by: TEZ CENTENO 04 Sep 2017 1441 ------- ------- ------- ------- -- VICENTA SCHNEIDER 09/04 [place]ased [place]/o [place]itations [place] Aid [facility] ) [place] [id number] S/ ANNUAL HEARING LEON CORREA 09/05 [place] [place] [id number] Notes Entered by: CHAPIN HARRELL 06 Feb 2018 1302 ------- ------- ------- ------- -- Vaccsummer mcneal - CHAPIN Delacruz 02/06 [place] [place] [id number] MONE RUCKER 06/16 [place] [place] OUTPAT[place] [id number] Notes Entered by: CHAPIN RAMIREZ 19 Jun 2018 1145 ------- ------- ------- ------- -- ER visit follow up CHAPIN RAMIREZ 06/19 [place] [place] [place] [id number] Notes Entered by: ROSIE MONTES 09 Sep 2018 0708 ------- ------- ------- ------- -- immuniz VICENTA Cortez 09/09 [place]ased [place]o [place]itations [place] [place] [place] OUTPATIENT [id number] Notes Entered by: CHAPIN HARRELL 09 Sep 2018 1056 ------- ------- ------- ------- -- Cathy mcneal - VICENTA Sommers 09/09 [place] [place] OUTPATIENT [id number] 5 bilat.lissett eg VICENTA Cardoza 09/16 Released with Work/Duty [place] [place] OUTPATIENT [id number] Notes Entered by: Leila BOOKER 23 Sep 2018 0853 ------- ------- ------- ------- -- INITIAL APPOINT MENT RUBA PALACIO 09/23 [place]ased [place]/o Lim[place] [place] OUTPATIENT [id number] 0 Pain in left leg NAOMI BANDA 10/09 [place]ased [place] [place] OUTPATIENT [id number] Notes Entered by: Leila PALACIO 23 Oct 2018 0847 ------- ------- ------- ------- -- NCM-fol low-up call RUBA PALACIO 10/23 [place]ased [place] [place] OUTPATIENT [id number] 2 F/UP AFTER MRI NAOMI BANDA 11/08 [place]ased [place] [place] OUTPATIENT [id number] Notes Entered by: Leila PALACIO 12 Nov 2018 1013 ------- ------- ------- ------- -- NCM-Mul ti-D care plan/ca re coordin ation RUBA PALACIO 11/12 [place]ased [place]/o Lim[place] [place]) [place] [id number] Initial BRUCE MOMIN 11/13 [place] OUTPATIENT [id number] 5 Intra-a rticula r left knee injecti on/mult i-D pt of . Rosina YOUSSEF LALO ALECIA 11/26 [place]ased [place] [place] OUTPATIENT [id number] Notes Entered by: Leila PALACIO 11 Dec 2018 1307 ------- ------- ------- ------- -- WOOD-shaylee low-up call RUBA PALACIO 12/11 [place]ased [place]o [place] [place] OUTPATIENT [id number] 5 follow- up NAOMI BANDA 01/01 [place]ased [place]/o [place]itations [place] [place] [id number] LEG PAIN BRUCE MOMIN 01/02 [place]ased [place] [id number] 2 LEG PAIN ADILENE ROPER 01/06 [place] [id number] LEG PAIN ADILENE ROPER 01/08 [place]ased [place] [id number] 7 s/THERESA Michaud 01/08 [place]ased [place] OUTPATIENT [id number] Notes Entered by: Leila PALACIO 09 Jan 2019 1036 ------- ------- ------- ------- -- NCM-fol low-up call RUBA PALACIO 01/09 [place]ased [place]/o Limitations [place] [place] [id number] Chondro malacia , left knee FEDE DOWNING 01/13 [place] [id number] 0 f/u l knee FEDE DOWNING 02/04 [place] OUTPATIENT [id number] 2 FOLLOW UP NAOMI BANDA 02/06 [place]ased [place]o [place] [place] OUTPATIENT [id number] Notes Entered by: Leila PALACIO 07 Feb 2019 1057 ------- ------- ------- ------- -- NCM-fol low-up call RUBA PALACIO 02/07 [place]ased [place]o [place]itations [place] [place] [place] [id number] 3 VICENTA TAYLOR 02/27 Released with Work/Duty Limitations [place] [place] OUTPATIENT [id number] FOLLOW UP NAOMI BANDA NARDA 04/17 [place]ased [place]o [place] [place] [id number] 0 Pain in left thigh/N ARSUM PER JHONATAN/ SONNY TRINH 06/03 [place]ased w/o [place]itations [place] [place] [address]([facility] [employer] [facility]) OUTPATIENT [id number] Notes Entered by: NENA CAIN 13 Jun 2019 1010 ------- ------- ------- ------- -- ILB DA 3947 approva l NENA CAIN 06/13 Released w/o Limitations [facility] [place] [address](M EB [employer] [facility]) [facility] Outpatient Encounter [id number] SUKHJINDER CLINE RID 09/20 [facility] Outpatient Encounter [id number] 10/04 [facility] Outpatient Encounter [id number] 10/06 [facility] Outpatient Encounter [id number] 10/06 [facility] Outpatient Encounter [id number] 10/23 [facility] Procedures Combined list of: 1) Procedures from Department of Veterans Affairs facilities going back up to thelast 18 months, not all VA non-surgical procedures are included; 2) All procedures from the Department of Defense facilities. Procedure Procedure Type Code Date Madhuri Hodges PSYCHIATRIC DIAGNOSTIC EVALUATION 2017 [facility] PSYCHIATRIC DIAGNOSTIC EVALUATION 2017 [facility] HEPATITIS A AND HEPATITIS B VACCINE (HEPA-HEPB), ADULT DOSAGE, FOR INTRAMUSCULAR USE 2006 [facility] LIGHT COMPRESSION BANDAGE, ELASTIC, KNITTED/WOVEN, WIDTH GREATER THAN OR EQUAL TO THREE INCHES AND LESS THAN FIVE INCHES, PER YARD 2006 [facility] SCREENING TEST OF VISUAL ACUITY, QUANTITATIVE, BILATERAL 2006 [facility] PATIENT EDUCATION, NOT OTHERWISE CLASSIFIED, NON-PHYSICIAN PROVIDER, GROUP, PER SESSION 2006 [facility] HEPATITIS A AND HEPATITIS B VACCINE (HEPA-HEPB), ADULT DOSAGE, FOR INTRAMUSCULAR USE 2006 [facility] PATIENT EDUCATION, NOT OTHERWISE CLASSIFIED, NON-PHYSICIAN PROVIDER, GROUP, PER SESSION 2006 [facility] BUPRENORPHINE IMPLANT, 74.2 MG 2006 [facility] INJECTION OF ANESTHETIC INTO SPINAL CANAL FOR ANALGESIA 2010 [facility] NONEXCISIONAL DEBRIDEMENT OF WOUND, INFECTION, OR BURN 2010 [facility] DAILY HOSPITAL MANAGEMENT OF EPIDURAL OR SUBARACHNOID CONTINUOUS DRUG ADMINISTRATION 2010 [facility] DEBRIDEMENT, MUSCLE AND/OR FASCIA (INCLUDES EPIDERMIS, DERMIS, AND SUBCUTANEOUS TISSUE, IF PERFORMED); FIRST 20 SQ CM OR LESS 2010 [facility] DAILY HOSPITAL MANAGEMENT OF EPIDURAL OR SUBARACHNOID CONTINUOUS DRUG ADMINISTRATION 2010 [facility] SMOKING AND TOBACCO CESSATION COUNSELING VISIT FOR THE ASYMPTOMATIC PATIENT; INTERMEDIATE, GREATER THAN 3 MINUTES, UP TO 10 MINUTES 2010 [facility] DEBRIDEMENT, MUSCLE AND/OR FASCIA (INCLUDES EPIDERMIS, DERMIS, AND SUBCUTANEOUS TISSUE, IF PERFORMED); FIRST 20 SQ CM OR LESS 2010 [facility] INTERNAL FIXATION OF FEMUR WITHOUT FRACTURE REDUCTION 2010 [facility] DEBRIDEMENT OF OPEN FRACTURE OF FEMUR 2010 [facility] THERAPEUTIC ACTIVITIES, DIRECT (ONE-ON-ONE) PATIENT CONTACT (USE OF DYNAMIC ACTIVITIES TO IMPROVE FUNCTIONAL PERFORMANCE), EACH 15 MINUTES 2010 [facility] POSTOPERATIVE FOLLOW-UP VISIT, NORMALLY INCLUDED IN THE SURGICAL PACKAGE, INDICATE THAT EVALUATION & MANAGEMENT SERVICE WAS PERFORMED DURING A POSTOPERATIVE PERIOD REASON RELATED ORIGINAL PROCEDURE 2010 [facility] POSTOPERATIVE FOLLOW-UP VISIT, NORMALLY INCLUDED IN THE SURGICAL PACKAGE, INDICATE THAT EVALUATION & MANAGEMENT SERVICE WAS PERFORMED DURING A POSTOPERATIVE PERIOD REASON RELATED ORIGINAL PROCEDURE 2010 [facility] POSTOPERATIVE FOLLOW-UP VISIT, NORMALLY INCLUDED IN THE SURGICAL PACKAGE, INDICATE THAT EVALUATION & MANAGEMENT SERVICE WAS PERFORMED DURING A POSTOPERATIVE PERIOD REASON RELATED ORIGINAL PROCEDURE 2010 [facility] THERAPEUTIC PROCEDURE, 1 OR MORE AREAS, EACH 15 MINUTES; GAIT TRAINING (INCLUDES STAIR CLIMBING) 2010 [facility] THERAPEUTIC ACTIVITIES, DIRECT (ONE-ON-ONE) PATIENT CONTACT (USE OF DYNAMIC ACTIVITIES TO IMPROVE FUNCTIONAL PERFORMANCE), EACH 15 MINUTES 2010 [facility] HEALTH AND BEHAVIOR INTERVENTION, EACH 15 MINUTES, [id number]; INDIVIDUAL 2010 [facility] THERAPEUTIC ACTIVITIES, DIRECT (ONE-ON-ONE) PATIENT CONTACT (USE OF DYNAMIC ACTIVITIES TO IMPROVE FUNCTIONAL PERFORMANCE), EACH 15 MINUTES 2010 [facility] HEALTH AND BEHAVIOR INTERVENTION, EACH 15 MINUTES, [id number]; INDIVIDUAL 2010 [facility] THERAPEUTIC PROCEDURE, 1 OR MORE AREAS, EACH 15 MINUTES; THERAPEUTIC EXERCISES TO DEVELOP STRENGTH AND ENDURANCE, RANGE OF MOTION AND FLEXIBILITY 2010 [facility] THERAPEUTIC PROCEDURE, 1 OR MORE AREAS, EACH 15 MINUTES; GAIT TRAINING (INCLUDES STAIR CLIMBING) 2010 [facility] SELF-CARE/HOME MANAGMENT TRAIN (EG,ACT OF DAILY LIVING (ADL) &COMPENSAT TRAIN,MEAL PREPARATION,SAFETY PROCS,AND INSTRUCT IN USE OF ASST TECHNOLOGY DEV/ADPT EQUIP) DIR ONE-ON-ONE CONT,EA 15 MINUTES 2010 [facility] SELF-CARE/HOME MANAGMENT TRAIN (EG,ACT OF DAILY LIVING (ADL) &COMPENSAT TRAIN,MEAL PREPARATION,SAFETY PROCS,AND INSTRUCT IN USE OF ASST TECHNOLOGY DEV/ADPT EQUIP) DIR ONE-ON-ONE CONT,EA 15 MINUTES 2010 [facility] SELF-CARE/HOME MANAGMENT TRAIN (EG,ACT OF DAILY LIVING (ADL) &COMPENSAT TRAIN,MEAL PREPARATION,SAFETY PROCS,AND INSTRUCT IN USE OF ASST TECHNOLOGY DEV/ADPT EQUIP) DIR ONE-ON-ONE CONT,EA 15 MINUTES 2010 [facility]D SELF-CARE/HOME MANAGMENT TRAIN (EG,ACT OF DAILY LIVING (ADL) &COMPENSAT TRAIN,MEAL PREPARATION,SAFETY PROCS,AND INSTRUCT IN USE OF ASST TECHNOLOGY DEV/ADPT EQUIP) DIR ONE-ON-ONE CONT,EA 15 MINUTES 2010 DoD THERAPEUTIC PROCEDURE, 1 OR MORE AREAS, EACH 15 MINUTES; THERAPEUTIC EXERCISES TO DEVELOP STRENGTH AND ENDURANCE, RANGE OF MOTION AND FLEXIBILITY 2010 [facility] SKIN TEST; TUBERCULOSIS, INTRADERMAL 2010 DoD POSTOPERATIVE FOLLOW-UP VISIT, NORMALLY INCLUDED IN THE SURGICAL PACKAGE, INDICATE THAT EVALUATION & MANAGEMENT SERVICE WAS PERFORMED DURING A POSTOPERATIVE PERIOD REASON RELATED ORIGINAL PROCEDURE 2010 [facility]D SELF-CARE/HOME MANAGMENT TRAIN (EG,ACT OF DAILY LIVING (ADL) &COMPENSAT TRAIN,MEAL PREPARATION,SAFETY PROCS,AND INSTRUCT IN USE OF ASST TECHNOLOGY DEV/ADPT EQUIP) DIR ONE-ON-ONE CONT,EA 15 MINUTES 2010 DoD THERAPEUTIC PROCEDURE, 1 OR MORE AREAS, EACH 15 MINUTES; GAIT TRAINING (INCLUDES STAIR CLIMBING) 2010 DoD POSTOPERATIVE FOLLOW-UP VISIT, NORMALLY INCLUDED IN THE SURGICAL PACKAGE, INDICATE THAT EVALUATION & MANAGEMENT SERVICE WAS PERFORMED DURING A POSTOPERATIVE PERIOD REASON RELATED ORIGINAL PROCEDURE 2010 [facility] THERAPEUTIC ACTIVITIES, DIRECT (ONE-ON-ONE) PATIENT CONTACT (USE OF DYNAMIC ACTIVITIES TO IMPROVE FUNCTIONAL PERFORMANCE), EACH 15 MINUTES 2010 DoD POSTOPERATIVE FOLLOW-UP VISIT, NORMALLY INCLUDED IN THE SURGICAL PACKAGE, INDICATE THAT EVALUATION & MANAGEMENT SERVICE WAS PERFORMED DURING A POSTOPERATIVE PERIOD REASON RELATED ORIGINAL PROCEDURE 2010 [facility]D SELF-CARE/HOME MANAGMENT TRAIN (EG,ACT OF DAILY LIVING (ADL) &COMPENSAT TRAIN,MEAL PREPARATION,SAFETY PROCS,AND INSTRUCT IN USE OF ASST TECHNOLOGY DEV/ADPT EQUIP) DIR ONE-ON-ONE CONT,EA 15 MINUTES 2010 DoD POSTOPERATIVE FOLLOW-UP VISIT, NORMALLY INCLUDED IN THE SURGICAL PACKAGE, INDICATE THAT EVALUATION & MANAGEMENT SERVICE WAS PERFORMED DURING A POSTOPERATIVE PERIOD REASON RELATED ORIGINAL PROCEDURE 2010 DoD POSTOPERATIVE FOLLOW-UP VISIT, NORMALLY INCLUDED IN THE SURGICAL PACKAGE, INDICATE THAT EVALUATION & MANAGEMENT SERVICE WAS PERFORMED DURING A POSTOPERATIVE PERIOD REASON RELATED ORIGINAL PROCEDURE 2010 DoD POSTOPERATIVE FOLLOW-UP VISIT, NORMALLY INCLUDED IN THE SURGICAL PACKAGE, INDICATE THAT EVALUATION & MANAGEMENT SERVICE WAS PERFORMED DURING A POSTOPERATIVE PERIOD REASON RELATED ORIGINAL PROCEDURE 2010 DoD HEALTH&BEHAV ASSESSMENT (EG, HEALTH-FOC CLINICAL INTERVIEW, BEHAVIORAL OBSERVATIONS, PSYCHOPHYSICOLOGICAL MONITOR, HEALTH-ORIENT QUESTIONNAIRES), EA 15 MIN [id number] W THE PATIENT; INIT ASSESSMENT 2010 [facility] INDIVIDUAL PSYCHOTHERAPY, INSIGHT ORIENTED, BEHAVIOR MODIFYING AND/OR SUPPORTIVE, IN AN OFFICE OR OUTPATIENT FACILITY, APPROXIMATELY 20 TO 30 MINUTES [id number] WITH THE PATIENT 2010 [facility] DEBRIDEMENT INCLUDING REMOVAL OF FOREIGN MATERIAL AT THE SITE OF AN OPEN FRACTURE AND/OR AN OPEN DISLOCATION (EG, EXCISIONAL DEBRIDEMENT); SKIN, SUBCUTANEOUS TISSUE, MUSCLE FASCIA, MUSCLE, AND BONE 2010 [facility]D COORDINATED CARE FEE, MAINTENANCE RATE 2019 DoD COORDINATED CARE FEE, MAINTENANCE RATE 2018 DoD COORDINATED CARE FEE, MAINTENANCE RATE 2018 [facility] BRIEF EMOTIONAL/BEHAVIORAL ASSESSMENT (EG, DEPRESSION INVENTORY, ATTENTION-DEFICIT/HYPER ACTIVITY DISORDER [ADHD] SCALE), WITH SCORING AND DOCUMENTATION, PER STANDARDIZED INSTRUMENT 2018 DoD CASE MANAGEMENT, EACH 15 MINUTES 2018 DoD ARTHROCENTESIS, ASPIRATION AND/OR INJECTION, MAJOR JOINT OR BURSA (EG, SHOULDER, HIP, KNEE, SUBACROMIAL BURSA); WITHOUT ULTRASOUND GUIDANCE 2018 DoD CASE MANAGEMENT, EACH 15 MINUTES 2018 [facility] PATIENT EDUCATION, NOT OTHERWISE CLASSIFIED, NON-PHYSICIAN PROVIDER, GROUP, PER SESSION 2018 [facility] ACUPUNCTURE, 1/MORE NEEDLES; W ELECTRICAL STIMULATION, EA ADDITIONAL 15 MINUTES, PERSONAL ONE-ON-ONE CONTACT W THE PATIENT, W RE-INSERTION, NEEDLE(S) (LIST SEPARATELY ADDITION CODE, 1 PROCEDURE) 2018 [facility] APPLICATION OF A MODALITY TO 1 OR MORE AREAS; INFRARED 2018 DoD APPLICATION OF A MODALITY TO 1 OR MORE AREAS; INFRARED 2018 DoD CASE MANAGEMENT, EACH 15 MINUTES 2018 DoD UNLISTED ULTRASOUND PROCEDURE (EG, DIAGNOSTIC, INTERVENTIONAL) 2018 [facility] APPLICATION OF A MODALITY TO 1 OR MORE AREAS; INFRARED 2018 DoD CASE MANAGEMENT, EACH 15 MINUTES 2018 DoD CASE MANAGEMENT, EACH 15 MINUTES 2018 DoD CASE MANAGEMENT, EACH 15 MINUTES 2017 DoD IMMUNIZATION ADMINISTRATION (INCLUDES PERCUTANEOUS, INTRADERMAL, SUBCUTANEOUS, OR INTRAMUSCULAR INJECTIONS); 1 VACCINE (SINGLE OR COMBINATION VACCINE/TOXOID) 2017 DoD TELEHEALTH ORIGINATING SITE FACILITY FEE 2017 DoD TELEHEALTH ORIGINATING SITE FACILITY FEE 2017 [facility] IMMUNIZATION ADMINISTRATION (INCLUDES PERCUTANEOUS, INTRADERMAL, SUBCUTANEOUS, OR INTRAMUSCULAR INJECTIONS); 1 VACCINE (SINGLE OR COMBINATION VACCINE/TOXOID) 2017 DoD EAR MOLD/INSERT, NOT DISPOSABLE, ANY TYPE 2016 [facility] IMMUNIZATION ADMINISTRATION (INCLUDES PERCUTANEOUS, INTRADERMAL, SUBCUTANEOUS, OR INTRAMUSCULAR INJECTIONS); 1 VACCINE (SINGLE OR COMBINATION VACCINE/TOXOID) 2016 [facility] THERAPEUTIC, PROPHYLACTIC, OR DIAGNOSTIC INJECTION (SPECIFY SUBSTANCE OR DRUG); SUBCUTANEOUS OR INTRAMUSCULAR 2016 [facility] FILTERED SPEECH TEST 2016 [facility] ACOUSTIC IMMITTANCE TESTING, INCLUDES TYMPANOMETRY (IMPEDANCE TESTING), ACOUSTIC REFLEX THRESHOLD TESTING, AND ACOUSTIC REFLEX DECAY TESTING 2015 [facility] EAR MOLD/INSERT, NOT DISPOSABLE, ANY TYPE 2015 [facility] VASECTOMY, UNILATERAL OR BILATERAL (SEPARATE PROCEDURE), INCLUDING POSTOPERATIVE SEMEN EXAM(S) 2015 [facility] EDUCATION &TRAINING, PATIENT SELF-MGT QUALIFIED, NONPHYSICIAN HEALTH GRINDER SETUP OPERATOR USING STANDARDIZED CURRICULUM, [id number] W THE PATIENT (COULD INCL CAREGIVER/FAMILY) EA 30 MIN; 2-4 PATIENTS 2015 [facility] COMPREHENSIVE AUDIOMETRY THRESHOLD EVALUATION AND SPEECH RECOGNITION ([id number] AND [id number] COMBINED) 2014 [facility] PURE TONE AUDIOMETRY (THRESHOLD), AUTOMATED; AIR ONLY 2014 [facility] SPEECH AUDIOMETRY THRESHOLD; WITH SPEECH RECOGNITION 2013 [facility] PURE TONE AUDIOMETRY (THRESHOLD), AUTOMATED; AIR ONLY 2013 [facility] ACOUSTIC IMMITTANCE TESTING, INCLUDES TYMPANOMETRY (IMPEDANCE TESTING), ACOUSTIC REFLEX THRESHOLD TESTING, AND ACOUSTIC REFLEX DECAY TESTING 2013 [facility] AUDIOMETRIC TESTING OF GROUPS 2013 [facility] TYPHOID VACCINE, CAPSULAR POLYSACCHARIDE (VICPS), FOR INTRAMUSCULAR USE 2012 [facility] DISTORTION PRODUCT EVOKED OTOACOUS EMISSIONS;LIMITED EVALUATION (TO CONFIRM THE PRESENCE/ABSENCE OF HEARING DISORDER,3-6 FREQUENCIES)/TRANSIENT EVOKED OTOACOUS EMISSIONS,W INTERPRETATION &REPORT 2012 [facility] AUDIOMETRIC TESTING OF GROUPS 2011 [facility] PHYSICAL THERAPY RE-EVALUATION 2011 [facility] EAR MOLD/INSERT, NOT DISPOSABLE, ANY TYPE 2011 [facility] PHYSICAL THERAPY RE-EVALUATION 2011 [facility] PHYSICAL THERAPY RE-EVALUATION 2010 [facility] THERAPEUTIC PROCEDURE, 1 OR MORE AREAS, EACH 15 MINUTES; THERAPEUTIC EXERCISES TO DEVELOP STRENGTH AND ENDURANCE, RANGE OF MOTION AND FLEXIBILITY 2010 [facility] THERAPEUTIC PROCEDURE,1 OR MORE AREAS,EACH 15 MINUTES;NEUROMUSCULAR REEDUCATION OF MOVEMENT,BALANCE,COORDI NATION,KINESTHETIC SENSE,POSTURE,AND/OR PROPRIOCEPTION FOR SITTING AND/OR STANDING ACTIVITIES 2010 DoD THERAPEUTIC PROCEDURE, 1 OR MORE AREAS, EACH 15 MINUTES; THERAPEUTIC EXERCISES TO DEVELOP STRENGTH AND ENDURANCE, RANGE OF MOTION AND FLEXIBILITY 2010 DoD THERAPEUTIC PROCEDURE,1 OR MORE AREAS,EACH 15 MINUTES;NEUROMUSCULAR REEDUCATION OF MOVEMENT,BALANCE,COORDI NATION,KINESTHETIC SENSE,POSTURE,AND/OR PROPRIOCEPTION FOR SITTING AND/OR STANDING ACTIVITIES 2010 [facility] PHYSICAL THERAPY RE-EVALUATION 2010 DoD THERAPEUTIC PROCEDURE, 1 OR MORE AREAS, EACH 15 MINUTES; GAIT TRAINING (INCLUDES STAIR CLIMBING) 2010 DoD THERAPEUTIC PROCEDURE, 1 OR MORE AREAS, EACH 15 MINUTES; GAIT TRAINING (INCLUDES STAIR CLIMBING) 2010 DoD THERAPEUTIC PROCEDURE, 1 OR MORE AREAS, EACH 15 MINUTES; GAIT TRAINING (INCLUDES STAIR CLIMBING) 2010 DoD THERAPEUTIC PROCEDURE, 1 OR MORE AREAS, EACH 15 MINUTES; GAIT TRAINING (INCLUDES STAIR CLIMBING) 2010 DoD THERAPEUTIC PROCEDURE, 1 OR MORE AREAS, EACH 15 MINUTES; GAIT TRAINING (INCLUDES STAIR CLIMBING) 2010 DoD THERAPEUTIC PROCEDURE, 1 OR MORE AREAS, EACH 15 MINUTES; THERAPEUTIC EXERCISES TO DEVELOP STRENGTH AND ENDURANCE, RANGE OF MOTION AND FLEXIBILITY 2010 [facility] MANUAL THERAPY TECHNIQUES (EG, MOBILIZATION/ MANIPULATION, MANUAL LYMPHATIC DRAINAGE, MANUAL TRACTION), 1 OR MORE REGIONS, EACH 15 MINUTES 2010 [facility] MANUAL THERAPY TECHNIQUES (EG, MOBILIZATION/ MANIPULATION, MANUAL LYMPHATIC DRAINAGE, MANUAL TRACTION), 1 OR MORE REGIONS, EACH 15 MINUTES 2010 [facility] MANUAL THERAPY TECHNIQUES (EG, MOBILIZATION/ MANIPULATION, MANUAL LYMPHATIC DRAINAGE, MANUAL TRACTION), 1 OR MORE REGIONS, EACH 15 MINUTES 2010 [facility] MANUAL THERAPY TECHNIQUES (EG, MOBILIZATION/ MANIPULATION, MANUAL LYMPHATIC DRAINAGE, MANUAL TRACTION), 1 OR MORE REGIONS, EACH 15 MINUTES 2010 DoD MANUAL THERAPY TECHNIQUES (EG, MOBILIZATION/ MANIPULATION, MANUAL LYMPHATIC DRAINAGE, MANUAL TRACTION), 1 OR MORE REGIONS, EACH 15 MINUTES 2010 [facility] PHYSICAL THERAPY RE-EVALUATION 2010 [facility] MANUAL THERAPY TECHNIQUES (EG, MOBILIZATION/ MANIPULATION, MANUAL LYMPHATIC DRAINAGE, MANUAL TRACTION), 1 OR MORE REGIONS, EACH 15 MINUTES 2010 [facility] THERAPEUTIC PROCEDURE, 1 OR MORE AREAS, EACH 15 MINUTES; THERAPEUTIC EXERCISES TO DEVELOP STRENGTH AND ENDURANCE, RANGE OF MOTION AND FLEXIBILITY 2010 [facility] POSTOPERATIVE FOLLOW-UP VISIT, NORMALLY INCLUDED IN THE SURGICAL PACKAGE, INDICATE THAT EVALUATION & MANAGEMENT SERVICE WAS PERFORMED DURING A POSTOPERATIVE PERIOD REASON RELATED ORIGINAL PROCEDURE 2010 [facility] MANUAL THERAPY TECHNIQUES (EG, MOBILIZATION/ MANIPULATION, MANUAL LYMPHATIC DRAINAGE, MANUAL TRACTION), 1 OR MORE REGIONS, EACH 15 MINUTES 2010 [facility] THERAPEUTIC PROCEDURE, 1 OR MORE AREAS, EACH 15 MINUTES; THERAPEUTIC EXERCISES TO DEVELOP STRENGTH AND ENDURANCE, RANGE OF MOTION AND FLEXIBILITY 2010 [facility] THERAPEUTIC PROCEDURE, 1 OR MORE AREAS, EACH 15 MINUTES; THERAPEUTIC EXERCISES TO DEVELOP STRENGTH AND ENDURANCE, RANGE OF MOTION AND FLEXIBILITY 2010 [facility] APPLICATION OF A MODALITY TO 1 OR MORE AREAS; ELECTRICAL STIMULATION (MANUAL), EACH 15 MINUTES 2010 [facility] THERAPEUTIC PROCEDURE, 1 OR MORE AREAS, EACH 15 MINUTES; THERAPEUTIC EXERCISES TO DEVELOP STRENGTH AND ENDURANCE, RANGE OF MOTION AND FLEXIBILITY 2010 [facility] RANGE OF MOTION MEASUREMENTS AND REPORT (SEPARATE PROCEDURE); EACH EXTREMITY (EXCLUDING HAND) OR EACH TRUNK SECTION (SPINE) 2010 [facility] POSTOPERATIVE FOLLOW-UP VISIT, NORMALLY INCLUDED IN THE SURGICAL PACKAGE, INDICATE THAT EVALUATION & MANAGEMENT SERVICE WAS PERFORMED DURING A POSTOPERATIVE PERIOD REASON RELATED ORIGINAL PROCEDURE 2010 [facility] ANALYSIS OF CLINICAL DATA STORED IN COMPUTERS (EG, ECGS, BLOOD PRESSURES, HEMATOLOGIC DATA) 2009 [facility] SKIN TEST; TUBERCULOSIS, INTRADERMAL 2009 [facility] MEDICAL NUTRITION THERAPY; GROUP (2 OR MORE INDIVIDUAL(S)), EACH 30 MINUTES 2009 [facility] TYPHOID VACCINE, CAPSULAR POLYSACCHARIDE (VICPS), FOR INTRAMUSCULAR USE 2009 [facility] MEDICAL NUTRITION THERAPY; GROUP (2 OR MORE INDIVIDUAL(S)), EACH 30 MINUTES 2008 [facility] INFLUENZA VIRUS VACCINE, TRIVALENT, LIVE (LAIV3), FOR INTRANASAL USE 2008 [facility] ANTHRAX VACCINE, FOR SUBCUTANEOUS OR INTRAMUSCULAR USE 2008 [facility] RADIOLOGIC EXAMINATION, KNEE; 1 OR 2 VIEWS 2008 [facility] INFLUENZA VIRUS VACCINE, TRIVALENT, LIVE (LAIV3), FOR INTRANASAL USE 2008 [facility] PHYSICAL THERAPY EVALUATION 2008 [facility] SKIN TEST; TUBERCULOSIS, INTRADERMAL 2008 [facility] ANTHRAX VACCINE, FOR SUBCUTANEOUS OR INTRAMUSCULAR USE 2007 [facility] KNEE ORTHOSIS, ELASTIC WITH JOINTS, PREFABRICATED ITEM THAT HAS BEEN TRIMMED, BENT, MOLDED, ASSEMBLED, OR OTHERWISE CUSTOMIZED TO FIT A SPECIFIC PATIENT BY AN INDIVIDUAL WITH EXPERTISE 2007 [facility] PHYSICAL THERAPY RE-EVALUATION 2007 [facility] HEPATITIS B VACCINE (HEPB), ADULT DOSAGE, 3 DOSE SCHEDULE, FOR INTRAMUSCULAR USE 2007 [facility] PHYSICAL THERAPY RE-EVALUATION 2007 [facility] SELF-CARE/HOME MANAGMENT TRAIN (EG,ACT OF DAILY LIVING (ADL) &COMPENSAT TRAIN,MEAL PREPARATION,SAFETY PROCS,AND INSTRUCT IN USE OF ASST TECHNOLOGY DEV/ADPT EQUIP) DIR ONE-ON-ONE CONT,EA 15 MINUTES 2007 [facility] PHYSICAL THERAPY EVALUATION 2007 [facility] VACCINIA IMMUNE GLOBULIN, HUMAN, FOR INTRAMUSCULAR USE 2006 [facility] Modalities Cryotherapy Cold Packs Modalities Cryotherapy Cold Packs 34501 2006 LEAH RÍOS [facility] Athletic Training Evaluation Athletic Training Evaluation 86469 2006 LEAH RÍOS [facility] Patient education, not otherwise cla ified, non-physician provider, group, per se ion 2006 MONE ABEBE [facility] Ear Protector Attenuation Measurements Ear Protector Attenuation Measurements 79248 2006 MONE ABEBE [facility] Audiometry Group Testing Audiometry Group Testing [id number] 2006 MONE ABEBE [facility] Coordinated care fee, maintenance rate 2018 NISHI BETHEA Care coordination time 60 mins. [facility] Social Work Individual Outpatient Counseling 20-30 Minutes Social Work Individual Outpatient Counseling 20-30 Minutes [id number] 2018 OUMAR JON [facility] Case Management, each 15 minutes 2018 RUBA PALACIO 150 minutes (at-2,11,16) [facility] Coordinated care fee, maintenance rate 2018 RUBA PALACIO [facility] Case Management, each 15 minutes 2018 RUBA PALACIO 180 mintues (at-2,11,16,18 ) [facility] Coordinated care fee, risk adjusted maintenance 2018 RUBA PALACIO [facility] Patient education, not otherwise cla ified, non-physician provider, group, per se ion 2018 THERESA BURROWS [facility] Threshold Audiogram (Pure Tone) Automated Threshold Audiogram (Pure Tone) Automated [id number] 2018 THERESA BURROWS [facility] Modalities Infrared Treatment Modalities Infrared Treatment 38760 2018 ADILENE ROPER Acupunct One/More Warren W/ Stim Addl 15 Min W/ Reinsertion Acupunct One/More Warren W/ Stim Addl 15 Min W/ Reinsertion 75631 2018 ADILENE ROPER Acupunct One Or More Warren W/ Stimulation Initial 15 Min Acupunct One Or More Warren W/ Stimulation Initial 15 Min [id number] 2018 ADILENE ROPER Counselled patient on the risks of Acupuncture and/or Electrical Nerve Stimulation treatment including pain, infection, bleeding and no relief of pain. Patient agreed to treatment. Needled points on kidney, governing, liver, large intestine, spleen, stomach, gallbladder, and extra meridians for 15 minutes with Estim on Ashii - GB31 & Ashii around scar tissue on lt leg.. Subsequently, there were other needles inserted with electrical stimulation for 15 minutes. External INFRARED heat lamp used during duration of trtmnt (30 min). Patient responded well to trtmnt. 32 needles inserted and 32 needles removed. Needle retention 30 minutes, TCM diagnosis 20 minutes, total trtmnt time 50 minutes. DoD Modalities Infrared Treatment Modalities Infrared Treatment [id number] ADILENE ROPER Acupunct One/More Warren W/O Stim Addl 15 Min W/ Reinsert Acupunct One/More Warren W/O Stim Addl 15 Min W/ Reinsert [id number] 2018 ADILENE ROPER Acupunct One Or More Warren W/O Stimulation Initial 15 Min Acupunct One Or More Warren W/O Stimulation Initial 15 Min 36939 2018 ADILENE ROPER Counselled patient on the risks of Acupuncture and/or Electrical Nerve Stimulation treatment including pain, infection, bleeding and no relief of pain. Patient agreed to treatment. Needled points on kidney, bladder, governing, liver, conception, large intestine, spleen, stomach, gallbladder, and extra meridians for 15 minutes. Subsequently, there were other needles inserted w/o electrical stimulation for 15 minutes. External INFRARED heat lamp used during duration of trtmnt (30 min). Patient responded well to trtmnt. 30 needles inserted and 30 needles removed. Needle retention 30 minutes, TCM diagnosis 20 minutes, total trtmnt time 50 minutes. DoD Acupunct One/More Warren W/ Stim Addl 15 Min W/ Reinsertion Acupunct One/More Warren W/ Stim Addl 15 Min W/ Reinsertion [id number] 2018 BRUCE MOMIN 1. Pain in Left Thigh M79.652: Pain 5/10. The patient is here today for acupuncture for left thigh pain. Counseled patient on risks of Acupuncture and Electrical Nerve Stimulation treatment including pain, infection, bleeding and no relief of pain. Patient agreed to treatment and provided consent. Acupuncture needles were placed in patients affected muscle groups in the Low Back and left thigh region. Warren were inserted into specific locations in affected areas for 15 minutes with electrical stimulation applied for that entire time duration. Subsequently, there were other needles that were inserted with electrical stimulation at new acupuncture points that were added for 15 minutes, then some of these needles were removed and more needles inserted with electrical stimulation for an additional 15 minutes. External heat was applied with an INFRARED lamp throughout the duration of the procedure. Patient tolerated the procedure well with no bleeding or increased pain. Discussed Patient's long-term Pain goals vs expectaition of today's pain relief after treatment. The goal is to eventually reach everyday movement with a pain level of 3/10 or less. The patient hoped to reduce pain today to a level of 4/10. Total treatment time was 50 minutes. 45 needles inserted during treatment, 45 needles removed after treatment. [facility] Modalities Infrared Treatment Modalities Infrared Treatment 94417 2018 BRUCE MOMIN Acupunct One Or More Warren W/ Stimulation Initial 15 Min Acupunct One Or More Warren W/ Stimulation Initial 15 Min 71130 2018 BRUCE MOMIN Case Management, each 15 minutes 2018 RUBA PALACIO 195 minutes (at-2,8,9,16) Nish Coordinated care fee, risk adjusted maintenance 2018 RUBA PALACIO Ultrasonic Guidance Procedures Ultrasonic Guidance Procedures 75960 2018 LALO YOUSSEF Corticosteroids Injection Intraarticular Left Knee Corticosteroids Injection Intraarticular Left Knee 2018 LALO YOUSSEF Acupunct One/More Warren W/ Stim Addl 15 Min W/ Reinsertion Acupunct One/More Warren W/ Stim Addl 15 Min W/ Reinsertion [id number] 2018 BRUCE MOMIN 1. Pain in left thigh M79.652: Pain 5/10. The patient is here today for acupuncture for pain in left thigh. Counseled patient on risks of Acupuncture and Electrical Nerve Stimulation treatment including pain, infection, bleeding and no relief of pain. Patient agreed to treatment and provided consent. Acupuncture needles were placed in patients affected Muscle groups in the Low Back and Cervical Region. Warren were inserted into specific locations in affected areas for 15 minutes with electrical stimulation applied for that entire time duration. Subsequently, there were other needles that were inserted with electrical stimulation at new acupuncture points that were added for 15 minutes, then some of these needles were removed and more needles inserted with electrical stimulation for an additional 15 minutes. External heat was applied with an INFRARED lamp throughout the duration of the procedure. Patient tolerated the procedure well with no bleeding or increased pain. Discussed Patients Pain goals and the goal is to reach everyday movement with a pain level of 3/10. Total treatment time was 50 minutes. [facility] Modalities Infrared Treatment Modalities Infrared Treatment 95475 2018 BRUCE MOMIN [facility] Acupunct One Or More Warren W/ Stimulation Initial 15 Min Acupunct One Or More Warren W/ Stimulation Initial 15 Min 04165 2018 BRUCE MOMIN [facility] Case Management, each 15 minutes 2018 RUBA PALACIO 240 minutes (at-2,7,9,16) [facility] Coordinated care fee, risk adjusted maintenance, Level 3 2018 RUBA PALACIO [facility] Case Management, each 15 minutes 2018 RUBA PALACIO 150 minutes (at-2,11,16) [facility] Coordinated care fee, maintenance rate 2018 RUBA PALACIO [facility] Case Management, each 15 minutes 2017 RUBA PALACIO 300 minutes (at-1,5,9,16) [facility] Coordinated care fee, risk adjusted maintenance 2017 RUBA PALACIO [facility] Immunization Administration One Vaccine Immunization Administration One Vaccine 21810 2017 DARREL ROCKWELL DoD Immunization Administration One Vaccine Immunization Administration One Vaccine 66588 2017 VICENTA MATIAS [facility] Non-Physician Phone Call To Patient/Provider Brief (5-10min) Non-Physician Phone Call To Patient/Provider Brief (5-10min) [id number] 2017 CHAPIN RAMIREZ [facility] Psychiatric Evaluation Comprehensive Examination Psychiatric Evaluation Comprehensive Examination [id number] 2017 JOSE ALBERTO EASTON [facility] Telehealth originating site facility fee 2017 VICENTA LARIOS [facility] Telehealth originating site facility fee 2017 VICENTA LARIOS [facility] Psychiatric Evaluation Comprehensive Examination Psychiatric Evaluation Comprehensive Examination 19933 2017 JOSE ALBERTO EASTON [facility] Td Vaccine Seven Years Of Age And Above Preservative Free Td Vaccine Seven Years Of Age And Above Preservative Free 23567 2017 CHAPIN HARRELL Td (adult), adsorbed; Series #: 1; .5 mL; IM; Left Arm; Mfg: [employer]; Lot: [id number]; VIS given (Javy: 01/30/2017). [facility] Immunization Administration One Vaccine Immunization Administration One Vaccine 27975 2017 CHAPIN HARRELL Ear mold/insert, not disposable, any type 2016 LEON CORREA Ear Protector Attenuation Measurements Ear Protector Attenuation Measurements 21154 2016 LEON CORREA Audiometry Group Testing Audiometry Group Testing 25629 2016 LEON CORREA Immunization Administration One Vaccine Immunization Administration One Vaccine 09134 2016 TEZ MACK [facility] Filtered Speech Test Filtered Speech Test 17025 2016 CLEMENTE FELIX [facility] Acoustic Immittance Test Acoustic Immittance Test 40995 2015 GARY OLSEN [facility] Audiometry Mack Test (Pure Tone) Audiometry Mack Test (Pure Tone) 53465 2015 GARY OLSEN Evoked Otoacoustic Leanne ions Comprehensive Evoked Otoacoustic Emissions Comprehensive 13799 2015 GARY OLSEN Comprehensive Audiometry Comprehensive Audiometry 15117 2015 GARY OLSEN Continuous Positive Airway Pre ure Ventilation Continuous Positive Airway Pressure Ventilation 14983 2015 ELIUD GUPTA [facility] Ear Protector Attenuation Measurements Ear Protector Attenuation Measurements 99784 2015 NEW ALVARENGA Ear mold/insert, not disposable, any type 2015 NEW ALVARENGA [facility] Testing Audiometry Group Testing 22544 2015 NEW ALVARENGA [facility] Surgery Of Male Genitalia Vasectomy Surgery Of Male Genitalia Vasectomy 40831 2015 BENEDICTO GUILLORY [facility] Patient Counseling Medical Management Two To Four Patients Patient Counseling Medical Management Two To Four Patients [address]Supervised Services Provision Of Special Supplies -Supervised Services Provision Of Special Supplies 56333 2014 SARAH WATTS Acoustic Immittance Test Acoustic Immittance Test 93102 2014 SARAH WATTS Comprehensive Audiometry Comprehensive Audiometry 91632 2014 SARAH WATTS Health And Behav A e mt Each 15 Min Initial A e ment Health And Behav Assessmt Each 15 Min Initial Assessment 24966 2014 SARAH WATTS Threshold Audiogram (Pure Tone) Automated Threshold Audiogram (Pure Tone) Automated 0208T 2014 KIKA BORDEN Audiometry Speech Threshold With Discrimination Audiometry Speech Threshold With Discrimination 81956 2013 SARAH WATTS Threshold Audiogram (Pure Tone) Threshold Audiogram (Pure Tone) 67523 2013 SARAH WATTS Threshold Audiogram (Pure Tone) Automated Threshold Audiogram (Pure Tone) Automated 0208T 2013 KIKA BORDEN Acoustic Immittance Test Acoustic Immittance Test 55686 2013 SARAH WATTS Comprehensive Audiometry Comprehensive Audiometry 55325 2013 SARAH WATTS [facility]ometry Group Testing Audiometry Group Testing 21789 2013 ENMANUEL PARKINSON Evoked Otoacoustic Leanne ions Limited 2012 SARAH WATTS Acoustic Immittance Test Acoustic Immittance Test 99959 2012 SARAH WATTS Comprehensive Audiometry Comprehensive Audiometry 46652 2012 SARAH WATTS [facility]ometry Group Testing Audiometry Group Testing 76524 2011 KEVIN BURDEN Physical Medicine Physical Therapy Re-Evaluation Physical Medicine Physical Therapy Re-Evaluation 55804 2011 JUDY VELASQUEZ Ear mold/insert, not disposable, any type 2011 BUTCH COULTER [facility] X-Ray Of The Femur Anteroposterior And Lateral Views X-Ray Of The Femur Anteroposterior And Lateral Views 91883 2011 ANJU SCHAEFFER [facility] Physical Medicine Physical Therapy Re-Evaluation Physical Medicine Physical Therapy Re-Evaluation 74969 2011 JERICA VELASQUEZARILYS [facility] Physical Medicine Physical Therapy Re-Evaluation Physical Medicine Physical Therapy Re-Evaluation 97129 2010 JERICA VELASQUEZARILYS [facility] Physical Therapy Neuromuscular Re-education Physical Therapy Neuromuscular Re-education 99597 2010 ROMIE COLLINS [facility] Physical Therapy: ___ Se ion Segments, 15 Minutes Each Physical Therapy: ___ Session Segments, 15 Minutes Each 49771 2010 ROMIE COLLINS [facility] Physical Therapy: ___ Se ion Segments, 15 Minutes Each Physical Therapy: ___ Session Segments, 15 Minutes Each 83735 2010 EVA VITAL [facility] Physical Therapy Neuromuscular Re-education Physical Therapy Neuromuscular Re-education 82563 2010 EVA VITAL [facility] Physical Therapy: ___ Se ion Segments, 15 Minutes Each Physical Therapy: ___ Session Segments, 15 Minutes Each 94940 2010 ROMIE COLLINS [facility] Physical Therapy Neuromuscular Re-education Physical Therapy Neuromuscular Re-education 81264 2010 ROMIE COLLINS [facility] Physical Therapy Neuromuscular Re-education Physical Therapy Neuromuscular Re-education 71049 2010 ROMIE COLLINS [facility] Physical Therapy: ___ Se ion Segments, 15 Minutes Each Physical Therapy: ___ Session Segments, 15 Minutes Each 49105 2010 ROMIE COLLINS [facility] Physical Medicine Physical Therapy Re-Evaluation Physical Medicine Physical Therapy Re-Evaluation 43470 2010 JERICA VELASQUEZARILYS [facility] Physical Therapy Gait Training Physical Therapy Gait Training 54058 2010 ROMIE COLLINS [facility] Physical Therapy: ___ Se ion Segments, 15 Minutes Each Physical Therapy: ___ Session Segments, 15 Minutes Each 73662 2010 ROMIE COLLINS [facility] X-Ray Of The Femur Anteroposterior And Lateral Views X-Ray Of The Femur Anteroposterior And Lateral Views 27988 2010 ANJU SCHAEFFER [facility] Physical Therapy: ___ Se ion Segments, 15 Minutes Each Physical Therapy: ___ Session Segments, 15 Minutes Each 41421 2010 ROMIE COLLINS [facility] Physical Therapy Gait Training Physical Therapy Gait Training 97718 2010 DENNIS ROMIE Valenzuela [facility] Physical Therapy Gait Training Physical Therapy Gait Training 56691 2010 DENNIS ROMIE Valenzuela [facility] Physical Therapy: ___ Se ion Segments, 15 Minutes Each Physical Therapy: ___ Session Segments, 15 Minutes Each 14485 2010 DENNIS ORMIE Nicolas [facility] Physical Therapy Gait Training Physical Therapy Gait Training 92435 2010 DENNIS ROMIE Valenzuela [facility] Physical Therapy: ___ Se ion Segments, 15 Minutes Each Physical Therapy: ___ Session Segments, 15 Minutes Each 41161 2010 DENNIS ROMIE Nicolas [facility] Coordinated care fee, maintenance rate NISHI BETHEA CARE COORDINATION TIME 15 MINS. [facility] Coordinated care fee, maintenance rate NISHI BETHEA CARE COORDINATION TIME 30 MINS. [facility] Physical Therapy Gait Training Physical Therapy Gait Training 04619 2010 ORLANDO MAR [facility] Physical Therapy: ___ Se ion Segments, 15 Minutes Each Physical Therapy: ___ Session Segments, 15 Minutes Each 69690 2010 ORLANDO MAR [facility] Physical Therapy Neuromuscular Re-education Physical Therapy Neuromuscular Re-education 87526 2010 JOMAR MEDINA [facility] Physical Therapy: ___ Se ion Segments, 15 Minutes Each Physical Therapy: ___ Session Segments, 15 Minutes Each 97629 2010 JOMAR MEDINA [facility] Physical Therapy Mobilization Joint Physical Therapy Mobilization Joint 65106 2010 ROMIE COLLINS [facility] Physical Therapy: ___ Se ion Segments, 15 Minutes Each Physical Therapy: ___ Session Segments, 15 Minutes Each 62382 2010 ROMIE COLLINS [facility] Physical Therapy Mobilization Joint Physical Therapy Mobilization Joint 08362 2010 ROMIE COLLINS [facility] Physical Therapy: ___ Se ion Segments, 15 Minutes Each Physical Therapy: ___ Session Segments, 15 Minutes Each 90259 2010 ROMIE COLLINS [facility] Physical Therapy Mobilization Joint Physical Therapy Mobilization Joint 37390 2010 ORLANDO MAR [facility] Physical Therapy: ___ Se ion Segments, 15 Minutes Each Physical Therapy: ___ Session Segments, 15 Minutes Each 46348 2010 ORLANDO MAR [facility] Physical Therapy Mobilization Joint Physical Therapy Mobilization Joint 27385 2010 ROMIE COLLINS [facility] Physical Therapy: ___ Se ion Segments, 15 Minutes Each Physical Therapy: ___ Session Segments, 15 Minutes Each 92973 2010 ROMIE COLLINS [facility] Physical Therapy Mobilization Joint Physical Therapy Mobilization Joint 54925 2010 ROMIE COLLINS [facility] Physical Therapy: ___ Se ion Segments, 15 Minutes Each Physical Therapy: ___ Session Segments, 15 Minutes Each 97300 2010 ROMIE COLLINS [facility] Physical Medicine Physical Therapy Re-Evaluation Physical Medicine Physical Therapy Re-Evaluation 97760 2010 JUDY VELASQUEZ [facility] Physical Therapy Mobilization Joint Physical Therapy Mobilization Joint 72268 2010 ROMIE COLLINS [facility] Physical Therapy Neuromuscular Re-education Physical Therapy Neuromuscular Re-education 97765 2010 ROMIE COLLINS [facility] Physical Therapy: ___ Se ion Segments, 15 Minutes Each Physical Therapy: ___ Session Segments, 15 Minutes Each 95743 2010 ROMIE COLLINS [facility] X-Ray Of The Femur Anteroposterior And Lateral Views X-Ray Of The Femur Anteroposterior And Lateral Views 14077 2010 ANJU SCHAEFFER [facility] Exercises A isted Exercises For ROM Exercises Assisted Exercises For ROM 47287 2010 ROMIE COLLINS [facility] Physical Therapy Mobilization Joint Physical Therapy Mobilization Joint 86509 2010 ROMIE COLLINS [facility] Physical Therapy Neuromuscular Re-education Physical Therapy Neuromuscular Re-education 08260 2010 ROMIE COLLINS [facility] Physical Therapy: ___ Se ion Segments, 15 Minutes Each Physical Therapy: ___ Session Segments, 15 Minutes Each 08135 2010 ROMIE COLLINS [facility] Exercises A isted Exercises For ROM Exercises Assisted Exercises For ROM 01023 2010 ROMIE COLLINS [facility] Physical Therapy Mobilization Joint Physical Therapy Mobilization Joint 13427 2010 ROMIE COLLINS [facility] Physical Therapy Neuromuscular Re-education Physical Therapy Neuromuscular Re-education 92921 2010 ROMIE COLLINS [facility] Physical Therapy: ___ Se ion Segments, 15 Minutes Each Physical Therapy: ___ Session Segments, 15 Minutes Each 53153 2010 ROMIE COLLINS [facility] Physical Therapy: ___ Se ion Segments, 15 Minutes Each Physical Therapy: ___ Session Segments, 15 Minutes Each 85678 2010 JUDY VELASQUEZ [facility] Physical Medicine Physical Therapy Evaluation Physical Medicine Physical Therapy Evaluation 06394 2010 [facility] Physical Therapy: ___ Se ion Segments, 15 Minutes Each Physical Therapy: ___ Session Segments, 15 Minutes Each 60366 2010 CLARI ZAMORA Range Of Motion Evaluation Of Extremity Range Of Motion Evaluation Of Extremity 18469 2010 CLARI ZAMORA Modalities Electrical Stimulation Modalities Electrical Stimulation 35115 2010 CLARI ZAMORA Modalities Electrical Stimulation Modalities Electrical Stimulation 53726 2010 CLARI ZAMORA Physical Therapy: ___ Se ion Segments, 15 Minutes Each Physical Therapy: ___ Session Segments, 15 Minutes Each 84530 2010 CLARI ZAMORA Range Of Motion Evaluation Of Extremity Range Of Motion Evaluation Of Extremity 96893 2010 CLARI ZAMORA Exercises A isted Exercises For ROM Exercises Assisted Exercises For ROM 81633 2010 CLARI ZAMORA Exercises A isted Exercises For ROM Exercises Assisted Exercises For ROM 33642 2010 CLARI ZAMORA Physical Therapy: ___ Se ion Segments, 15 Minutes Each Physical Therapy: ___ Session Segments, 15 Minutes Each 54924 2010 CLARI ZAMORA Range Of Motion Evaluation Of Extremity Range Of Motion Evaluation Of Extremity 27552 2010 CLARI ZAMORA Range Of Motion Evaluation Of Extremity Range Of Motion Evaluation Of Extremity 01050 2010 CLARI ZAMORA Physical Therapy: ___ Se ion Segments, 15 Minutes Each Physical Therapy: ___ Session Segments, 15 Minutes Each 32640 2010 CLARI ZAMORA Exercises A isted Exercises For ROM Exercises Assisted Exercises For ROM 98025 2010 CLARI ZAMORA PT A e ment Kinetic Training PT Assessment Kinetic Training 05720 2010 JOSSELINE ARCHULETA [facility] Physical Therapy Gait Training Physical Therapy Gait Training 95510 2010 JOSSELINE ARCHULETA PT A e ment Kinetic Training PT Assessment Kinetic Training 60321 2010 JOSSELINE ARCHULETA [facility] Physical Therapy Gait Training Physical Therapy Gait Training 16421 2010 JOSSELINE ARCHULETA [facility] PT A e ment Kinetic Training PT Assessment Kinetic Training 71048 2010 JOSSELINE ARCHULETA Physical Therapy Gait Training Physical Therapy Gait Training 12430 2010 JOSSELINE ARCHULETA Exercises A isted Exercises For ROM Exercises Assisted Exercises For ROM 00552 2010 JOSSELINE ARCHULETA Physical Therapy Gait Training Physical Therapy Gait Training 88169 2010 JOSSELINE ARCHULETA Exercises A isted Exercises For ROM Exercises Assisted Exercises For ROM 09852 2010 JOSSELINE ARCHULETA Training And Self-Care Skills Additional 15 Minutes Training And Self-Care Skills Additional 15 Minutes 74344 2010 TASHIA PICKETT Total treatment time was 15 mins. [facility] Physical Therapy Gait Training Physical Therapy Gait Training 96383 2010 TASHIA PICKETT Total treatment time was 30 mins. [facility] Health And Behavior Intervention, Each 15 Minutes Individual Health And Behavior Intervention, Each 15 Minutes Individual 58318 2010 JOSE ANTONIO AGOSTO [facility] Health And Behavior Intervention, Each 15 Minutes Individual Health And Behavior Intervention, Each 15 Minutes Individual 23436 2010 JOSE ANTONIO AGOSTO DoD Training And Self-Care Skills Training And Self-Care Skills 22746 2010 TARIQ MURRIETA DoD Training And Self-Care Skills Additional 15 Minutes Training And Self-Care Skills Additional 15 Minutes 70794 2010 TASHIA PICKETT Total treatment time was 15 mins. [facility] Physical Therapy Gait Training Physical Therapy Gait Training 39969 2010 TASHIA PICKETT Total treatment time was 30 mins. DoD Training And Self-Care Skills Training And Self-Care Skills 99481 2010 TARIQ MURRIETA Exercises A isted Exercises For ROM Exercises Assisted Exercises For ROM 21697 2010 JOSSELINE ARCHULETA Physical Therapy Gait Training Physical Therapy Gait Training 79947 2010 JOSSELINE ARCHULETA PT A e ment Kinetic Training PT Assessment Kinetic Training 28854 2010 JOSSELINE ARCHULETA [facility] Physical Medicine Physical Therapy Evaluation Physical Medicine Physical Therapy Evaluation 16479 2010 JOSSELINE ARCHULETA [facility] Skin Test Anergy Tuberculin Intradermal Skin Test Anergy Tuberculin Intradermal 20256 2010 CHANTELLE MERCER [facility] Training And Self-Care Skills Training And Self-Care Skills 57928 2010 TARIQ MURRIETA [facility] Occupational Therapy Evaluation Occupational Therapy Evaluation 11589 2010 TARIQ MURRIETA [facility] Health And Behav A e mt Each 15 Min Initial A e ment Health And Behav Assessmt Each 15 Min Initial Assessment 30306 2010 FRED YI Health And Behav A e mt Each 15 Min Initial A e ment Health And Behav Assessmt Each 15 Min Initial Assessment 40517 2010 FRED YI [facility] Social Work Individual Outpatient Counseling 20-30 Minutes Social Work Individual Outpatient Counseling 20-30 Minutes 03392 2010 CHANEL FELTON [facility] Special Barriga Services Analysis Of Computerized Data Special Barriga Services Analysis Of Computerized Data 36879 2009 TEDDY MCHUGH [facility] Testing Audiometry Group Testing 41373 2009 TEDDY MCHUGH [facility] Threshold Audiogram (Pure Tone) Threshold Audiogram (Pure Tone) 45149 2009 TEDDY MCHUGH [facility] Medical Nutrition Therapy Group (2 or More Individual(s)) Medical Nutrition Therapy Group (2 or More Individual(s)) 51339 2009 CITLALI VILLAGRAN [facility] Physical Medicine Physical Therapy Evaluation Physical Medicine Physical Therapy Evaluation 93145 2009 TERRA SORIANO Pnt screened at RP. Please refer to SF 600 for details. [facility] Medical Nutrition Therapy Group (2 or More Individual(s)) Medical Nutrition Therapy Group (2 or More Individual(s)) 04825 2008 CITLALI VILLAGRAN [facility] X-Ray Knee Views Anteroposterior And Lateral Views [See R,L] X-Ray Knee Views Anteroposterior And Lateral Views [See R,L] 87662 2008 ANJU SCHAEFFER [facility] Knee orthosis, elastic with joints, prefabricated, includes fitting and adjustment 2007 CASEY BETANCOURT [facility] Patient Counseling Medical Management Individual Patient Patient Counseling Medical Management Individual Patient [id number] 2007 TERRA SORIANO [facility] Physical Therapy: ___ Se ion Segments, 15 Minutes Each Physical Therapy: ___ Session Segments, 15 Minutes Each 42435 2007 TERRA SORIANO [facility] Physical Medicine Physical Therapy Re-Evaluation Physical Medicine Physical Therapy Re-Evaluation 61652 2007 TERRA SORIANO [facility] Physical Medicine - Group Physical Therapy Se ion Physical Medicine - Group Physical Therapy Session 32909 2007 ADAN GOODMAN Phys Therapy Education Self Care Training - Per 15 Minutes Phys Therapy Education Self Care Training - Per 15 Minutes 45500 2007 ADAN GOODMAN [facility] Physical Therapy: ___ Se ion Segments, 15 Minutes Each Physical Therapy: ___ Session Segments, 15 Minutes Each 89567 2007 ADAN GOODMAN Physical Therapy Neuromuscular Re-education Physical Therapy Neuromuscular Re-education 42675 2007 ADAN GOODMAN Physical Medicine Physical Therapy Re-Evaluation Physical Medicine Physical Therapy Re-Evaluation 29712 2007 TERRA SORIANO [facility] Physical Therapy: ___ Se ion Segments, 15 Minutes Each Physical Therapy: ___ Session Segments, 15 Minutes Each 82740 2007 TERRA SORIANO [facility] Patient Counseling Medical Management Individual Patient Patient Counseling Medical Management Individual Patient [id number] 2007 TERRA SORIANO [facility] Physical Medicine Physical Therapy Evaluation Physical Medicine Physical Therapy Evaluation 92178 2007 TERRA SORIANO [facility] Light compre ion bandage, elastic, knitted/woven, width greater than or equal to three inches and le than five inches, per yard 2006 LEAH RÍOS hinged knee brace [facility] Modalities Electrical Stimulation Unattended Modalities Electrical Stimulation Unattended 90647 2006 LEAH RÍOS Social History Combined list of available smoking, tobacco, and other 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 Social History Type Response Date Comment [facility] e Tobacco smoking status NHIS VA-TOBACCO USER SOME DAYS 03/06/2023 [facility] History of tobacco use VA-TOBACCO DOESNT USE WI 30 MIN WAKEUP 03/06/2023 [facility] History of tobacco use VA-TOBACCO USE CO UNSEL NO 09/03/2019 [facility] This section is an empty social history section. DoD
--- OUTSIDE RECORDS SUMMARY | 2025-02-13 11:16 | XMS_ITS | Encounter Summary ---
Author Organization [facility] Address [address] [place] [address] Care Team Providers Care Watch Inspector Name Role Phone Unavailable Primary Care Provider Unavailabl e Encounter Details Date Type Department Care Team (Late st Contact Info) Description 2022 Lab Requisition [facility] [address] [place] [id number] Wali Chambers MD [address] [place] [address] Social History Tobacco Use Types Packs/Day Years Used Date Smoking Tobacco: Never Assessed Sex and Gender Information Value Date Recorded Sex Assigned at Not on file Legal Sex Male 8:43 AM CDT Gender Identity Not on file Sexual Orientation Not on file documented as of this encounter Plan of Treatment Not on file documented as of this encounter Procedures Procedure Name Priority Date/Time Associated Diagnosis Comments DERMATOPATHOLOGY Routine 07/26/2022 12:0 0 AM CDT documented in this encounter Results * DERMATOPATHOLOGY (07/26/2022 12:00 AM CDT) Case Report Dermatopathology Report Case: [id number] Authorizing Provider: Wali Chambers MD Collected: 07/26/2022 12:00 AM Ordering Location: [facility] Received: 2022 09:26 AM Pathologist: Sonja Burkett MD Specimen: Skin, right waistline 2 2:52 PM CDT DERMATOPATHOLOGY LABORATORY Final Diagnosis Specimen A. SKIN, right waistline: NEVUS LIPOMATOSUS SUPERFICIALIS (D17.30) 2 2:52 PM CDT DERMATOPATHOLOGY LABORATORY Clinical History Irritated Fibroma. Path# [id number] 2:52 PM CDT DERMATOPATHOLOGY LABORATORY Gross Description Specimen A: Received is one formalin filled container labeled with the patient's name and designated right waistline. The specimen consists of a shave biopsy measuring [id number] and it is bisected. Jar 0. 2:52 PM CDT DERMATOPATHOLOGY LABORATORY Microscopic Description Specimen A. SKIN, right waistline: There is a gently folded epidermis surrounding a connective tissue core in which fat and collagen are intermingled. 2:52 PM CDT DERMATOPATHOLOGY LABORATORY Disclaimer An external and internal positive and negative controls are appropriate for the histochemical, immunohistochemical and immunofluorescence stain(s) in this case (if any), except where stated explicitly. The performance characteristics of the stain(s) cited in this report were developed and its performance characteristic determined by the Dermatopathology Laboratory at [facility], directed by Dr. Klarissa Zarate. These tests need not be, and therefore are not, approved by the [place] Food and Drug Administration. The tests are used for clinical purposes. Billing Codes Specimen Charges Stain Charges 84510 1 2:52 PM CDT DERMATOPATHOLOGY LABORATORY Embedded Images 2:52 PM CDT DERMATOPATHOLOGY LABORATORY Pathology/Cytolog y TISSUE SPECIMEN FROM SKIN / Unknown 07/26/2022 2022 9:26 AM CDT Wali Chambers MD LAB - PATHOLOGY/CYTOLOGY ORDER RHONDA Final Result DERMATOPATHOLOGY LABORATORY [facility] - Department of Dermatology [address] [place] [address], [facility] [phone] documented in this encounter Visit Diagnoses Not on filedocumented in this encounter
--- OUTSIDE RECORDS SUMMARY | 2025-02-13 11:16 | XMS_ITS | Clinical Summary ---
Author Organization [facility] Address [address] [place] [id number] Care Team Providers Care Live Out Nanny Name Role Phone Ganesh Mitchell MD Primary Care Provider Allergies No known active allergies Medications cyclobenzaprine (FLEXERIL) 10 MG tablet 1 tablet (10 mg total). 3 Active testosterone cypionate (DEPO TESTOSTERONE) 200 MG/ML injection 4 Active sildenafil (VIAGRA) 50 MG tabletIndication s:Erectile dysfunction, unspecified erectile dysfunction type Take 1 tablet (50 mg total) by mouth daily as needed for Erectile Dysfunction. 18 tablet 3 4 Active loratadine (CLARITIN) 10 MG tabletIndication s:Seasonal allergic rhinitis due to pollen Take 1 tablet (10 mg total) by mouth daily. 90 tablet 3 4 Active vitamin D3 (CHOLECALCIFEROL ) 1.25 mg capsuleIndicatio ns:Vitamin D deficiency Take 1 capsule (50,000 Units total) by mouth once a week. 12 capsule 4 Active phentermine (ADIPEX-P) 37.5 MG tabletIndication s:Class 1 obesity due to excess calories without serious comorbidity with body mass index (BMI) of 30.0 to 30.9 in adult TAKE 1 TABLET(37.5 MG) BY MOUTH EVERY MORNING BEFORE BREAKFAST 30 tablet 1 5 Active Active Problems Problem Noted Date Diagnosed Date Vitamin D3 deficiency 10/08/2024 Lipoprotein deficiency 12/18/2023 Erectile dysfunction, unspecified erectile dysfu nction type 12/18/2023 Stage 2 chronic kidney disease 12/18/2023 Vitamin D deficiency 11/20/2023 Tobacco user 11/20/2023 Tinnitus 11/20/2023 Sensorineural hearing loss (SNHL) 11/20/2023 Post-traumatic stress disorder, chronic 11/20/19 Obstructive sleep apnea (adult) (pediatric) 10/24 Nicotine dependence 11/20/2023 Mixed hyperlipidemia 11/20/2023 Special screening for traumatic brain injury Chronic fatigue, unspecified 11/20/2023 Allergic rhinitis 11/20/2023 Adjustment reaction 11/20/2023 Abnormal auditory function study 11/20/2023 Class 1 obesity due to exces s calories without serious comorbidity with body mass index (BMI) of 30.0 to 30.9 in adult 11/20/2023 Decreased libido 11/20/2023 Chondromalacia patellae, left knee 01/13/2019 Encounters Date Type Department Care Team Description 01/01/2025 Telephone [facility] - [address], [address] [place] [address] Paula, Ganesh Young MD Refill Request from Last 3 Months Immunizations Immunization Administration Dates Next Due Anthrax Vaccine 01/03/2013,05/11/2010,11/27/2007 ,03/29/2007 H1N1 Injectable 2009 Influenza 11/12/2009 Hepatitis A/Hepatitis B(Twinrix) 11/27/2007,02/2007,11/06/2006 Influenza (FluMist) 09/12/2011, 9,07/29/2009,01/09/2009 ,09/19/2007 Influenza (Generic) 08/28/2016, 4,07/16/2013,08/13/2012 ,09/11/2010,11/06/2006 Influenza Adult (Generic) 11/05/2019,,09/09/2018,08/17/2017 ,09/02/2015 MMR (MMRII) 11/06/2006 Meningococcal (Menactra) 11/06/2006 Pneumococcal (Pneumovax 23) 11/05/2019 Polio IPV (Ipol) 11/06/2006 Small Pox 03/29/2007 Td (TDVAX) 02/06/2018 Tdap (Generic) 02/06/2018,11/06/2006 Typhoid (Typhim ) 01/03/2013,01/19/2010,2006 Family History Medical History Relation Comments Arthritis Father Cancer Maternal Grandfather Passed from lung cancer Diabetes Maternal Grandmother Mental Health Maternal Grandmother Cancer Mother Passed from ovar michael/stomach cancer Relation Status Comments Father Maternal Grandfather Maternal Grandmother Mother Social History Tobacco Use Types Packs/Day Years Used Date Smoking Tobacco: Every Day Cigars Passive Smoke Exposure: Current Smokeless Tobacco: Current Chew Tobacco Cessation:Ready to Q uit: No; Counseling Given: Yes Comments:Currently use chew Alcohol Use Standard Drinks/Week Comments Yes 1 (1 standard drink = 0.6 oz pure alcohol) Couple cocktails every few weeks PHQ-2 Answer Date Recorded Patient Health Questionnaire-2 Score 0 10/08/2024 Sex and Gender Information Value Date Recorded Sex Assigned at Male 12/24/2023 8:06 AM [employer] Legal Sex Male 9:51 AM [employer] Gender Identity Male 12/24/2023 8:06 AM [employer] Sexual Orientation Straight 12/24/2023 8: 06 AM [employer] Last Filed Vital Signs Vital Sign Reading Time Taken Comments Blood Pressure 128/78 10/08/2024 7:11 AM [employer] Pulse 74 10/08/2024 7:11 AM [employer] Temperature 36.1 C (97 F) 10/08/2024 7:11 AM [employer] Respiratory Rate 16 10/08/2024 7:11 AM [employer] Oxygen Saturation 99% 10/08/2024 7:11 AM [employer] Inhaled Oxygen Concentration - - Weight 105.7 kg (233 lb) 10/08/2024 7:11 AM [employer] Height 189.2 cm (6' 2.5 ) 10/08/2024 7:11 AM [employer] Body Mass Index 29.52 10/08/2024 7:11 AM [employer] Plan of Treatment Health Maintenance Due Date Last Done Comments Annual Physical 1988 Hepatitis C 2003 Pneumococcal Vaccine: Pediatrics (0 to 5 Years) and At-Risk Patients (6 to 49 Years) (2 of 2 - PCV) 11/05/2020 11/05/2019 COVID-19 Vaccine ( - 2023-2 5 season) 2024 01/31/2021, 01/06/2021 PHQ-2 (Physician [place]) 10/22/2024 10/08/2024 DTaP, Tdap and Td Vaccines ( 4 - Td or Tdap) 02/07/2028 02/06/2018, 02/06/2018, 11/06/2006 Meningococcal Vaccine Aged Out 11/06/2006 No dominique chuckie eligible based on patient's age to complete this topic Hepatitis B Vaccines Completed 11/27/2007, 12/24/2006, 11/06/2006 HPV Vaccines Aged Out No longer eligi ble based on patient's age to complete this topic Meningococcal B Vaccine Aged Out No l onger eligible based on patient's age to complete this topic RSV Immunizations Under 20 Months Aged Out No longer eligible b ased on patient's age to complete this topic Insurance [facility] Care Teams Live Out Nanny Relationship Specialty Start Date End Date Ganesh Mitchell MD [address] [facility] [address], [place] [phone] PCP - General FAMILY PRACTICE 11/20/23
--- OUTSIDE RECORDS SUMMARY | 2025-02-13 11:16 | XMS_ITS | Clinical Summary ---
Author Organization [facility] Address [address] [place] [address] Care Team Providers Care Equipment Manager Name Role Phone Unavailable Primary Care Provider Unavailabl e Source Comments [facility],non-owned Affiliates and Associated Physician Practices is amultiple site organization consisting of ambulatory clinics and hospital sitesin [place], [place], [place] and [place]. This disclosure is being madepursuant to the Care Everywhere program and may not contain all information available regarding this patient. Last updated 18.[facility] Social History Tobacco Use Types Packs/Day Years Used Date Smoking Tobacco: Never Assessed Sex and Gender Information Value Date Recorded Sex Assigned at Not on file Legal Sex Male 8:43 AM CDT Gender Identity Not on file Sexual Orientation Not on file Plan of Treatment Health Maintenance Due Date Last Done Comments HIV SCREENING 2000 HEPATITIS C SCREENING 07/24/2003 DTAP/TDAP/TD VACCINES (1 - Tdap) 2004 HEPATITIS B VACCINE (1 of 3 - 19+ 3-dose series) 2004 COVID-19 VACCINE (1 - 2023-2 5 season) 2024 DEPRESSION SCREENING 10/22/2024 INFLUENZA VACCINE (Season Ended) 2025 ZOSTER VACCINE (1 of 2) 2035 HIB VACCINE Aged Out No longer eligi ble based on patient's age to complete this topic HPV VACCINE Aged Out No longer eligi ble based on patient's age to complete this topic MENINGOCOCCAL (Group B) VACC INE SHARED DECISION-MAKING Aged Out No longer eligibl e based on patient's age to complete this topic MENINGOCOCCAL GROUPS A/C/Y/W VACCINE Aged Out No longer eligible b ased on patient's age to complete this topic PNEUMOCOCCAL VACCINE Aged Out No long er eligible based on patient's age to complete this topic Insurance [facility]
--- OUTSIDE RECORDS SUMMARY | 2025-02-13 11:21 | XMS_ITS | Continuity of Care Document ---
Author Name [facility] Organization [facility] Care Team Providers Care Claim Review Medical Director Name Role Phone [facility] Unavailable Unavailable Problems Combined list of problems from Department of Defense and Veterans Affairs facilities. It does not include entries that were removed or entered in error. 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 19 Condition [facility] Pain in left knee Active 11/08/19 19 Condition [facility] Pain in left thigh Active 11/08/19 19 Condition [facility] visit for: screening exam Inactive 05/25/20 11 Condition [facility] Adjustment disorder Active Condition [facility] Allergic Rhinitis ([facility] [id number]) Active Condition [facility] Chronic Pain Due to Injury ([facility] [id number]) Active Condition [facility] Exposure to potentially hazardous substance Active Condition [facility] Hyperlipidemia ([facility] [id number]) Active Condition [facility] Obstructive Sleep Apnea Syndrome ([facility] [id number]) Active Condition [facility] Past history of procedure Active Condition Nov 05, 2019 Entered By: JESSICA NICE Comment: 2010 left hip and leg shrapnel removal and femur fracture repair surgeries x 6Jan 2019 Entered By: JESSICA NICE Comment: 2015 vasectomyNov 05, 2019 Entered By: JESSICA NICE Comment: 2001 left knee medial meniscal and scar tissue repairNov 05, 2019 Entered By: JESSICA NICE Comment: wisdom teeth extractions (2) [facility] Patient Overweight ([facility] [id number]) Active Condition [facility] Sensorineural Hearing Loss ([facility] [id number]) Active Condition [facility] Tinnitus ([facility] [id number]) Active Condition [facility] Tobacco User ([facility] [id number]) Active Condition [facility] Vitamin D Deficiency ([facility] [id number]) Active Condition [facility] Obstructive sleep apnea (adult) (pediatric) Active Condition [...] Known Allergies Drug allergy (disorder) active 9 [place], [place] Immunizations Combined list of available immunizations from the Department of Defense and Veterans Affairs facilities. Immunization Series Date Given Administered By Site Reaction Lot Number CVX Code Drug Sliver Handler Status Comments Source INFLUENZA, INJECTABLE, QUADRIVALENT, PRESERVATIVE FREE 2019 150 complet ed [facility] PNEUMOCOCCAL POLYSACCHARID E [id number] 2019 33 complet ed [facility] Influenza, injectable, quadrivalent, preservative free 1 2017 DARREL ROCKWELL [id number] 150 Seqirus (SEQ) complet ed Influenza , injectabl e, quadrival ent, preservat alexi free DoD Influenza, injectable, quadrivalent, preservative free 1 2017 CHAPIN HARRELL [id number] 150 Seqirus (SEQ) complet ed Influenza , injectabl e, quadrival ent, preservat alexi free DoD TDAP 2017 115 complet ed HISTORICA L INFORMATI ON - FROM PATIENT'S WRITTEN RECORD, [facility] tetanus and diphtheria toxoids, adsorbed, preservative free, for adult use (2 Lf of tetanus toxoid and 2 Lf of diphtheria toxoid) 1 2017 CHAPIN HARRELL [id number] Sanofi Pasteur ([facility]) complet ed tetanus and diphtheri a toxoids, adsorbed, preservat alexi free, for adult use (2 Lf of tetanus toxoid and 2 Lf of diphtheri a toxoid) DoD Influenza, injectable, quadrivalent, preservative free 1 2016 TEZ MACK [id number] 150 incrediblueKline (SKB) complet ed Influenza , injectabl e, quadrival ent, preservat alexi free DoD Influenza, seasonal, injectable, preservative free 1 2015 [id number] 140 Seqirus (SEQ) comple t ed Influenza , seasonal, injectabl e, preservat alexi free DoD Influenza, injectable, quadrivalent, preservative free 1 2014 [id number] 150 SmithKline (SKB) complet ed Influenza , injectabl e, quadrival ent, preservat alexi free DoD Influenza, seasonal, injectable 1 2013 [id number] 141 Merck (MSD) complet ed Influenza , seasonal, injectabl e DoD Influenza, seasonal, injectable 1 2012 [id number] 141 CSAvailinkapCSRware, Inc. (CSL) complet ed Influenza , seasonal, injectabl e DoD anthrax vaccine 4 2012 [id number] [employer] Jewett ([facility]) complet ed anthrax vaccine DoD typhoid Vi capsular polysaccharid e vaccine 1 2012 [id number] 101 Sanofi Pasteur ([facility]) complet ed typhoid Vi capsular polysacch aride vaccine DoD Influenza, seasonal, injectable, preservative free 1 2011 [id number] 140 Sanofi Pasteur ([facility]) complet ed Influenza , seasonal, injectabl e, preservat alexi free DoD influenza virus vaccine, live, attenuated, for intranasal use 1 2010 [id number] 111 PopularMedia, Inc. (MED) complet ed influenza virus vaccine, live, attenuate d, for intranasa l use DoD tuberculin skin test; purified protein derivative solution, intradermal 0 2010 Unknown, Provider [id number] Sanofi Pasteur ([facility]) complet ed tuberculi n skin test; purified protein derivativ e solution, intraderm al DoD influenza virus vaccine, split virus (incl. purified surface antigen)-reti red CODE 1 2009 [id number] 15 Unknown (UNK) comple t ed influenza virus vaccine, split virus (incl. purified surface antigen)- retired CODE DoD anthrax vaccine 3 2009 [id number] 24 [employer] ([facility]) complet ed anthrax vaccine DoD typhoid Vi capsular polysaccharid e vaccine 1 2009 [id number] 101 Sanofi Pasteur ([facility]) complet ed typhoid Vi capsular polysacch aride vaccine DoD Novel influenza-H1N 1-09, injectable 1 2009 [id number] 127 Unknown (UNK) complet ed Novel influenza -[id number], injectabl e DoD influenza virus vaccine, live, attenuated, for intranasal use 1 2008 UNK 111 Unknown (UNK) comple t ed influenza virus vaccine, live, attenuate d, for intranasa l use DoD influenza virus vaccine, live, attenuated, for intranasal use 1 2008 [id number] 111 MedISpotcast Inc.une, Inc. (MED) complet ed influenza virus vaccine, live, attenuate d, for intranasa l use DoD influenza virus vaccine, live, attenuated, for intranasal use 1 2008 [id number] 111 MedIFiPath, Inc. (MED) complet ed influenza virus vaccine, live, attenuate d, for intranasa l use DoD anthrax vaccine 2 2007 UNK 24 Emergent [employer]ett ([facility]) complet ed anthrax vaccine DoD hepatitis A and hepatitis B vaccine 3 2007 [id number] 104 [facility] (SKB) complet ed hepatitis A and hepatitis B vaccine DoD influenza virus vaccine, live, attenuated, for intranasal use 1 2006 [id number] 111 PopularMedia, Inc. (MED) complet ed influenza virus vaccine, live, attenuate d, for intranasa l use DoD anthrax vaccine 1 2006 [id number] 24 [employer] Jewett ([facility]) complet ed anthrax vaccine DoD vaccinia (smallpox) vaccine 1 2006 [id number] 75 Sameera (WAL) complet ed vaccinia (smallpox [...] vaccine DoD poliovirus vaccine, inactivated 1 2006 [id number] 10 SmithKline (SKB) complet ed polioviru s [...] diphtheria toxoid conjugate vaccine (MCV4P) 1 2006 [id number] 114 Unknown (UNK) comple t ed meningoco ccal polysacch aride (groups A, C, Y and W-135) diphtheri a toxoid conjugate vaccine (MCV4P) DoD tetanus toxoid, reduced diphtheria toxoid, and acellular pertu is vaccine, adsorbed [id number] [place] [address] ([facility]) complet ed tetanus toxoid, reduced diphtheri a [...] Comment: For additional information, please refer to http://BluPanda.Oryzon Genomics.Dragonfruit Studios m/faq/ TotalTestost eroneLCMSMSF AQ165 (This link is being provided for informationa l/ educational purposes only.) This test was developed and its analytical performance characterist ics have been determined by [facility] [place], [place]. It has not been cleared or approved by the U.S. Food and Drug Administrati on. This assay has been validated pursuant to the CLIA regulations and is used for clinical purposes. Test Performed by [facility] [place], [place], [address] [place], [place] Js Martino M.D., Ph.D., Director of Laboratories , CLIA [id number] Ordering Provider: INDIGO CLINE Report Released Date/Time: March 06, 2023 09:40 AM Reporting Lab: [facility] [address] [facility] [address] Performing Lab: [facility] [address] [facility] TESTOSTERO NE, FREE PANEL ALBUMIN [MASS/VOLUM E] IN SERUM OR PLASMA 4.6 g/dL 3.6 - 5.1 04/06 Specimen Type: SERUM Comment: For additional information, please refer to http://Hashplexa PassportParking.Oryzon Gen[employer].Dragonfruit Studios m/faq/ TotalTestost eroneLCMSMSF AQ165 (This link is being provided for informationa l/ educational purposes only.) This test was developed and its analytical performance characterist ics have been determined by [facility] [place], [place]. It has not been cleared or approved by the U.S. Food and Drug Administrati on. This assay has been validated pursuant to the CLIA regulations and is used for clinical purposes. Test Performed by [facility] [place], [place], [address] [place] [address] Js Martino M.D., Ph.D., Director of Laboratories , CLIA [id number] Ordering Provider: INDIGO CLINE Report Released Date/Time: March 06, 2023 09:40 AM Reporting Lab: [facility] [address] [place] [phone] Performing Lab: [address] [facility] TESTOSTERO NE, FREE PANEL TESTOSTERON E FREE [MOLES/VOLU ME] IN SERUM OR PLASMA 52.9 pg/mL 46.0 - 224.0 04/06 Specimen Type: SERUM Comment: For additional information, please refer to http://educa tion.Oryzon Genomics.co m/faq/ TotalTestost eroneLCMSMSF AQ165 (This link is being provided for informationa l/ educational purposes only.) This test was developed and its analytical performance characterist ics have been determined by [facility] [place], [place]. It has not been cleared or approved by the U.S. Food and Drug Administrati on. This assay has been validated pursuant to the CLIA regulations and is used for clinical purposes. Test Performed by [facility] [place], [address] [place], [place] Js Martino M.D., Ph.D., Director of Laboratories , CLIA [id number] Ordering Provider: INDIGO CLINE Report Released Date/Time: March 06, 2023 09:40 AM Reporting Lab: [facility] [address] [place] [phone] Performing Lab: [address] [facility] TESTOSTERO NE, FREE PANEL TESTOSTERON E.FREE+WEAK LY BOUND [MASS/VOLUM E] IN SERUM OR PLASMA 111.2 ng/dL 110.0 - 575.0 04/06 Specimen Type: SERUM Comment: For additional information, please refer to http://BluPanda.Rose Window Productions m/faq/ TotalTestost eroneLCMSMSF AQ165 (This link is being provided for informationa l/ educational purposes only.) This test was developed and its analytical performance characterist ics have been determined by [facility] [place], [place]. It has not been cleared or approved by the U.S. Food and Drug Administrati on. This assay has been validated pursuant to the CLIA regulations and is used for clinical purposes. Test Performed by [facility], [facility], [address] [place] [address] Js Martino M.D., Ph.D., Director of [employer] , CLIA [id number] Ordering Provider: INDIGO CLINE Report Released Date/Time: March 06, 2023 09:40 AM Reporting Lab: [facility] [address] [place] [address] Performing Lab: [address] [facility] TESTOSTER NE, FREE PANEL SEX HORMONE BINDING GLOBULIN [MOLES/VOLU ME] IN SERUM OR PLASMA 21 nmol/L 10 - 50 04/06 Specimen Type: SERUM Comment: For additional information, please refer to http://BluPanda.[employer] m/faq/ TotalTestost eroneLCMSMSF AQ165 (This link is being provided for informationa l/ educational purposes only.) This test was developed and its analytical performance characterist ics have been determined by [facility] [place], [place]. It has not been cleared or approved by the U.S. Food and Drug Administrati on. This assay has been validated pursuant to the CLIA regulations and is used for clinical purposes. Test Performed by [facility], [facility], [address] [place], [place] Js Martino M.D., Ph.D., Director of Laboratories , CLIA [id number] Ordering Provider: INDIGO CLINE Report Released Date/Time: March 06, 2023 09:40 AM Reporting Lab: [facility] [address] [place] [address] Performing Lab: [facility] [address] [facility] CBC LEUKOCYTES [#/VOLUME] IN BLOOD BY AUTOMATED COUNT 7.0 10*3/u L 3.6 - 11.2 04/06 Specimen Type: BLOOD No comment entered. Ordering Provider: INDIGO CLINE Report Released Date/Time: March 06, 2023 09:40 AM Reporting Lab: [facility] [facility] [address] Performing Lab: [facility] [phone] [place] [address] CBC ERYTHROCYTE S [#/VOLUME] IN BLOOD BY AUTOMATED COUNT 5.12 10*6/u L 4.10 - 5.70 04/06 Specimen Type: BLOOD No comment entered. Ordering Provider: INDIGO CLINE Report Released Date/Time: March 06, 2023 09:40 AM Reporting Lab: [facility] [address] Performing Lab: [facility] [place] [id number] CBC HEMOGLOBIN [MASS/VOLUM E] IN BLOOD 15.3 g/dL 13.1 - 16.8 04/06 Specimen Type: BLOOD No comment entered. Ordering Provider: INDIGO CLINE Report Released Date/Time: March 06, 2023 09:40 AM Reporting Lab: [facility] [address] Performing Lab: [facility] [place] [id number] CBC HEMATOCRIT [VOLUME FRACTION] OF BLOOD 43.6 38.2 - 48.4 04/06 Specimen Type: BLOOD No comment entered. Ordering Provider: INDIGO CLINE Report Released Date/Time: March 06, 2023 09:40 AM Reporting Lab: [facility] [place] [phone] Performing Lab: [facility] CBC MCV [ENTITIC VOLUME] BY AUTOMATED COUNT 85.2 fL 80.0 - 100.0 04/06 Specimen Type: BLOOD No comment entered. Ordering Provider: INDIGO CLINE Report Released Date/Time: March 06, 2023 09:40 AM Reporting Lab: [facility] [place] [phone] Performing Lab: [facility] [place] [phone] CBC MCH [ENTITIC MASS] BY AUTOMATED COUNT 29.9 pg 27.0 - 34.0 04/06 Specimen Type: BLOOD No comment entered. Ordering Provider: INDIGO CLINE Report Released Date/Time: March 06, 2023 09:40 AM Reporting Lab: [facility] [place] [phone] Performing Lab: [facility] CBC MCHC [MASS/VOLUM E] BY AUTOMATED COUNT 35.1 g/dL 33.0 - 36.0 04/06 Specimen Type: BLOOD No comment entered. Ordering Provider: INDIGO CLINE Report Released Date/Time: March 06, 2023 09:40 AM Reporting Lab: [facility] [address] Performing Lab: [facility] [phone] [place] [address] CBC PLATELETS [#/VOLUME] IN BLOOD BY AUTOMATED COUNT 264 10*3/u L 150 - 400 04/06 Specimen Type: BLOOD No comment entered. Ordering Provider: INDIGO CLINE Report Released Date/Time: March 06, 2023 09:40 AM Reporting Lab: [facility] [place] [phone] Performing Lab: [facility] CBC PLATELET MEAN VOLUME [ENTITIC VOLUME] IN BLOOD BY AUTOMATED COUNT 9.5 fL 7.5 - 11.2 04/06 Specimen Type: BLOOD No comment entered. Ordering Provider: INDIGO CLINE Report Released Date/Time: March 06, 2023 09:40 AM Reporting Lab: [facility] [address] Performing Lab: [facility] [place] [phone] CBC ERYTHROCYTE DISTRIBUTIO N WIDTH [RATIO] BY AUTOMATED COUNT 11.6 11.8 - 15.1 04/06 L Specimen Type: BLOOD No comment entered. Ordering Provider: INDIGO CLINE Report Released Date/Time: March 06, 2023 09:40 AM Reporting Lab: [facility] [address] Performing Lab: [facility] CBC LYMPHOCYTES /100 LEUKOCYTES IN BLOOD BY AUTOMATED COUNT 38 04/06 Specimen Type: BLOOD No comment entered. Ordering Provider: INDIGO CLINE Report Released Date/Time: March 06, 2023 09:40 AM Reporting Lab: [facility] [place] [address] Performing Lab: [facility] [address] [place] [address] CBC MONOCYTES/1 00 LEUKOCYTES IN BLOOD BY AUTOMATED COUNT 5 04/06 Specimen Type: BLOOD No comment entered. Ordering Provider: INDIGO CLINE Report Released Date/Time: March 06, 2023 09:40 AM Reporting Lab: [facility] [address] Performing Lab: [facility] [place] [phone] [place] [address] CBC NEUTROPHILS /100 LEUKOCYTES IN BLOOD BY AUTOMATED COUNT 54 04/06 Specimen Type: BLOOD No comment entered. Ordering Provider: INDIGO CLINE Report Released Date/Time: March 06, 2023 09:40 AM Reporting Lab: [facility] [address] Performing Lab: [facility] CBC EOSINOPHILS /100 LEUKOCYTES IN BLOOD BY AUTOMATED COUNT 3 04/06 Specimen Type: BLOOD No comment entered. Ordering Provider: INDIGO CLINE Report Released Date/Time: March 06, 2023 09:40 AM Reporting Lab: [facility] [address] Performing Lab: [facility] [place] [phone] [place] [address] CBC BASOPHILS/1 00 LEUKOCYTES IN BLOOD BY AUTOMATED COUNT 0 04/06 Specimen Type: BLOOD No comment entered. Ordering Provider: INDIGO CLINE Report Released Date/Time: March 06, 2023 09:40 AM Reporting Lab: [facility] [address] Performing Lab: [facility] CBC LYMPHOCYTES [#/VOLUME] IN BLOOD BY AUTOMATED COUNT 2.69 10*3/u L 0.77 - 4.50 04/06 Specimen Type: BLOOD No comment entered. Ordering Provider: INDIGO CLINE Report Released Date/Time: March 06, 2023 09:40 AM Reporting Lab: [facility] [place] [address] Performing Lab: [facility] CBC MONOCYTES [#/VOLUME] IN BLOOD BY AUTOMATED COUNT 0.32 10*3/u L 0.19 - 1.50 04/06 Specimen Type: BLOOD No comment entered. Ordering Provider: INDIGO CLINE Report Released Date/Time: March 06, 2023 09:40 AM Reporting Lab: [facility] [place] [address] Performing Lab: [facility] CBC NEUTROPHILS [#/VOLUME] IN BLOOD BY AUTOMATED COUNT 3.78 10*3/u L 2.10 - 8.00 04/06 Specimen Type: BLOOD No comment entered. Ordering Provider: INDIGO CLINE Report Released Date/Time: March 06, 2023 09:40 AM Reporting Lab: [facility] [place] [address] Performing Lab: [facility] CBC EOSINOPHILS [#/VOLUME] IN BLOOD BY AUTOMATED COUNT 0.21 10*3/u L 0.00 - 0.60 04/06 Specimen Type: BLOOD No comment entered. Ordering Provider: INDIGO CLINE Report Released Date/Time: March 06, 2023 09:40 AM Reporting Lab: [facility] [place] [address] Performing Lab: [facility] CBC BASOPHILS [#/VOLUME] IN BLOOD BY AUTOMATED COUNT 0.03 10*3/u L 0.00 - 0.20 04/06 Specimen Type: BLOOD No comment entered. Ordering Provider: INDIGO CLINE Report Released Date/Time: March 06, 2023 09:40 AM Reporting Lab: [facility] [place] [address] Performing Lab: [facility] COMPREHENS ALEXI METABOLIC PANEL CREATININE [MASS/VOLUM E] IN SERUM OR PLASMA 1.22 mg/dL 0.70 - 1.30 04/06 Specimen Type: PLASMA Comment: No hemolysis noted. Ordering Provider: INDIGO CLINE Report Released Date/Time: March 06, 2023 09:40 AM Reporting Lab: [facility] [place] [address] Performing Lab: [facility] COMPREHENS ALEXI METABOLIC PANEL UREA NITROGEN [MASS/VOLUM E] IN SERUM OR PLASMA 22 mg/dL 9 - 25 04/06 Specimen Type: PLASMA Comment: No hemolysis noted. Ordering Provider: INDIGO CLINE Report Released Date/Time: March 06, 2023 09:40 AM Reporting Lab: [facility] [place] [address] Performing Lab: [facility] COMPREHENS ALEXI METABOLIC PANEL GLUCOSE [MASS/VOLUM E] IN SERUM OR PLASMA 100 mg/dL 72 - 99 04/06 H Specimen Type: PLASMA Comment: No hemolysis noted. Ordering Provider: INDIGO CLINE Report Released Date/Time: March 06, 2023 09:40 AM Reporting Lab: [facility] [place] [address] Performing Lab: [facility] [phone] COMPREHENS ALEXI METABOLIC PANEL SODIUM [MOLES/VOLU ME] IN SERUM OR PLASMA 139 meq/L 136 - 145 04/06 Specimen Type: PLASMA Comment: No hemolysis noted. Ordering Provider: INDIGO CLINE Report Released Date/Time: March 06, 2023 09:40 AM Reporting Lab: [facility] [address] Performing Lab: [facility] [phone] COMPREHENS ALEXI METABOLIC PANEL POTASSIUM [MOLES/VOLU ME] IN SERUM OR PLASMA 4.0 meq/L 3.5 - 5.0 04/06 Specimen Type: PLASMA Comment: No hemolysis noted. Ordering Provider: INDIGO CLINE Report Released Date/Time: March 06, 2023 09:40 AM Reporting Lab: [facility] [address] Performing Lab: [facility] [phone] COMPREHENS ALEXI METABOLIC PANEL CHLORIDE [MOLES/VOLU ME] IN SERUM OR PLASMA 105 meq/L 98 - 107 04/06 Specimen Type: PLASMA Comment: No hemolysis noted. Ordering Provider: INDIGO CLINE Report Released Date/Time: March 06, 2023 09:40 AM Reporting Lab: [facility] [address] Performing Lab: [facility] [place] [phone] COMPREHENS ALEXI METABOLIC PANEL CARBON DIOXIDE, TOTAL [MOLES/VOLU ME] IN SERUM OR PLASMA 22 meq/L 22 - 31 04/06 Specimen Type: PLASMA Comment: No hemolysis noted. Ordering Provider: INDIGO CLINE Report Released Date/Time: March 06, 2023 09:40 AM Reporting Lab: [facility] [place] [address] Performing Lab: [facility] COMPREHENS ALEXI METABOLIC PANEL CALCIUM [MASS/VOLUM E] IN SERUM OR PLASMA 9.6 mg/dL 8.4 - 10.4 04/06 Specimen Type: PLASMA Comment: No hemolysis noted. Ordering Provider: INDIGO CLINE Report Released Date/Time: March 06, 2023 09:40 AM Reporting Lab: [facility] [place] [address] Performing Lab: [facility] COMPREHENS ALEXI METABOLIC PANEL PROTEIN [MASS/VOLUM E] IN SERUM OR PLASMA 8.1 g/dL 6.0 - 8.6 04/06 Specimen Type: PLASMA Comment: No hemolysis noted. Ordering Provider: INDIGO CLINE Report Released Date/Time: March 06, 2023 09:40 AM Reporting Lab: [facility] [place] [address] Performing Lab: [facility] COMPREHENS ALEXI METABOLIC PANEL ALBUMIN [MASS/VOLUM E] IN SERUM OR PLASMA 4.5 g/dL 3.4 - 5.0 04/06 Specimen Type: PLASMA Comment: No hemolysis noted. Ordering Provider: INDIGO CLINE Report Released Date/Time: March 06, 2023 09:40 AM Reporting Lab: [facility] [place] [address] Performing Lab: [facility] COMPREHENS ALEXI METABOLIC PANEL BILIRUBIN.T OTAL [MASS/VOLUM E] IN SERUM OR PLASMA 0.4 mg/dL 0.2 - 1.2 04/06 Specimen Type: PLASMA Comment: No hemolysis noted. Ordering Provider: INDIGO CLINE Report Released Date/Time: March 06, 2023 09:40 AM Reporting Lab: [facility] [place] [phone] Performing Lab: [facility] [id number] COMPREHENS ALEXI METABOLIC PANEL ALKALINE PHOSPHATASE [ENZYMATIC ACTIVITY/VO LUME] IN SERUM OR PLASMA 61 U/L 40 - 150 04/06 Specimen Type: PLASMA Comment: No hemolysis noted. Ordering Provider: INDIGO CLINE Report Released Date/Time: March 06, 2023 09:40 AM Reporting Lab: [facility] [phone] Performing Lab: [facility] COMPREHENS ALEXI METABOLIC PANEL ASPARTATE AMINOTRANSF ERASE [ENZYMATIC ACTIVITY/VO LUME] IN SERUM OR PLASMA 25 U/L 5 - 34 04/06 Specimen Type: PLASMA Comment: No hemolysis noted. Ordering Provider: INDIGO CLINE Report Released Date/Time: March 06, 2023 09:40 AM Reporting Lab: [facility] [phone] Performing Lab: [facility] COMPREHENS ALEXI METABOLIC PANEL ALANINE AMINOTRANSF ERASE [ENZYMATIC ACTIVITY/VO LUME] IN SERUM OR PLASMA 30 U/L 8 - 40 04/06 Specimen Type: PLASMA Comment: No hemolysis noted. Ordering Provider: INDIGO CLINE Report Released Date/Time: March 06, 2023 09:40 AM Reporting Lab: [facility] [place] [address] Performing Lab: [facility] [facility] COMPREHENS ALEXI METABOLIC PANEL GLOMERULAR FILTRATION RATE/1.73 SQ M.PREDICTED [VOLUME RATE/AREA] IN SERUM, PLASMA OR BLOOD BY CREATININE- BASED FORMULA (CKD-EPI 2020) 78.31 04/06 Specimen Type: PLASMA Comment: No hemolysis noted. Ordering Provider: INDIGO CLINE Report Released Date/Time: March 06, 2023 09:40 AM Reporting Lab: [facility] [place] [address] Performing Lab: [facility] FREE T4 THYROXINE (T4) FREE [MASS/VOLUM E] IN SERUM OR PLASMA 1.10 ng/mL 0.70 - 1.48 04/06 Specimen Type: SERUM No comment entered. Ordering Provider: INDIGO CLINE Report Released Date/Time: March 06, 2023 09:40 AM Reporting Lab: [facility] [place] [address] Performing Lab: [facility] HGA1C HEMOGLOBIN A1C/HEMOGLO BIN.TOTAL IN BLOOD 5.8 4.0 - 6.0 04/06 Specimen Type: BLOOD No comment entered. Ordering Provider: INDIGO CLINE Report Released Date/Time: March 06, 2023 09:40 AM Reporting Lab: [facility] [place] [address] Performing Lab: [facility] LIPID PANEL (STL) CHOLESTEROL [MASS/VOLUM E] IN SERUM OR PLASMA 196 mg/dL 0 - 200 04/06 Specimen Type: PLASMA Comment: No hemolysis noted. Ordering Provider: INDIGO CLINE Report Released Date/Time: March 06, 2023 09:40 AM Reporting Lab: [facility] [place] [address] Performing Lab: [facility] LIPID PANEL (STL) TRIGLYCERID E [MASS/VOLUM E] IN SERUM OR PLASMA 217 mg/dL 0 - 150 04/06 H Specimen Type: PLASMA Comment: No hemolysis noted. Ordering Provider: INDIGO CLINE Report Released Date/Time: March 06, 2023 09:40 AM Reporting Lab: [facility] [place] [address] Performing Lab: [facility] LIPID PANEL (L) CHOLESTEROL IN LDL [MASS/VOLUM E] IN SERUM OR PLASMA BY CALCULATION 118 mg/dL 04/06 Specimen Type: PLASMA Comment: No hemolysis noted. Ordering Provider: INDIGO CLINE Report Released Date/Time: March 06, 2023 09:40 AM Reporting Lab: [facility] [place] [address] Performing Lab: [facility] LIPID PANEL (STL) CHOLESTEROL IN HDL [MASS/VOLUM E] IN SERUM OR PLASMA 35 mg/dL 04/06 L Specimen Type: PLASMA Comment: No hemolysis noted. Ordering Provider: INDIGO CLINE Report Released Date/Time: March 06, 2023 09:40 AM Reporting Lab: [facility] [place] [address] Performing Lab: [facility] TSH (MA-PB-STL ) THYROTROPIN [UNITS/VOLU ME] IN SERUM OR PLASMA 1.886 u[IU]/ mL 0.470 - 5.000 04/06 Specimen Type: PLASMA Comment: No hemolysis noted. Ordering Provider: INDIGO CLINE Report Released Date/Time: March 06, 2023 09:40 AM Reporting Lab: [facility] [phone] Performing Lab: [facility] [phone] [facility] VITAMIN D, 25-HYDROXY 25-HYDROXYV ITAMIN D3 [MASS/VOLUM E] IN SERUM OR PLASMA 33.2 ng/mL 30 - 96 04/06 Specimen Type: SERUM No comment entered. Ordering Provider: INDIGO CLINE Report Released Date/Time: March 06, 2023 09:40 AM Reporting Lab: [facility] [phone] Performing Lab: [facility] [phone] [place] [address] Encounters Combined list of: 1) Encounters from [facility] facilities going backup to the last 18 months, not all [place] inpatient encounters are included; 2) Encounters from the Department of [facility] ([place], [place]) facilities going backup to 280 months. Location Location Details Encounter Type Encounter Number Reason For Visit Attending Provider ADM Date DC Date Status Disposition Source [facility] [employer] OUTPATIENT [id number] CAMPOS VANEGAS 11/01 Released w/o Limitations [facility] [employer] [place] [facility] [employer] [place]) OUTPATIENT [id number] [address] [place], [place] [address]T MONE ABEBE S. 11/06 [facility]ased w/[place] Limitations [facility] [place] [facility] [place] OUTPATIENT [id number] left knee pain LEAH RÍOS. 12/04 Released w/o Limitations [facility] [employer] [place] [facility] [employer] [place]) OUTPATIENT [id number] L knee pain 2/506 ENRIQUE SCHAEFFER S 10/03 Released w/o Limitations [facility] [employer] [place] Physical Therapy) OUTPATIENT [id number] joint pain, localiz ed in the knee TERRA SORIANO Monica 11/01 Released with Work/Duty Limitations [facility] [employer] Physica l Therapy ) [facility] [employer] [place] OUTPATIENT [id number] tinaADAN Pichardo 11/14 Released with Work/Duty Limitations [facility] [employer] Physica l Therapy ) [facility] [employer] Physical [facility] OUTPATIENT [id number] Profile request . TERRA SORIANO Monica 11/14 Released with Work/Duty Limitations [facility] [employer] Physica l Therapy ) [facility] [employer] Physical [facility] OUTPATIENT [id number] MRI TERRA SORIANO Monica 12/25 Released with Work/Duty Limitations [facility] [employer] Physica l Therapy ) [facility] [employer] [place] [place] OUT[place] [id number] MARLENE WOODS 12/25 Released w/o Limitations [facility] [employer] [facility] [employer]) [place] [id number] [facility] TERRA SORIANO Monica 01/09 Released w/o Limitations [facility] [employer] [facility] [employer]) [place] [id number] Pas entered the order [facility] ANJU SCHAEFFER 01/14 Released with Work/Duty Limitations [facility] [employer] [facility] [employer] [id number] Mri results Left knee ANJU SCHAEFFER 02/23 Released with Work/Duty Limitations [facility] [employer] [facility] [employer] [place] [id number] RASH/HARRISON NDS/GABRIELA IN/CHES T ERIN MCNALLY 05/24 Released w/o Limitations [facility] [employer] [place] [facility] [employer] [id number] Left Knee ERIN MCNALLY 07/19 Released with Work/Duty Limitations [facility] [employer] [facility] [employer] [place] OUTPATIENT [id number] CITLALI VILLAGRAN 08/11 Released w/o Limitations [facility] [employer]) [facility] [employer]) TELE CONSULT [id number] L KNEE CONSULT /PHY THERAPY ERIN MCNALLY 08/18 [facility] [employer] [facility] [employer] OUTPATIENT [id number] [employer] CITLALI VILLAGRAN 03/01 Released w/o Limitations [facility] [employer] [facility] [employer] OUTPATIENT [id number] [facility] TEDDY MCHUGH 05/19 Released w/o Limitations [facility] [employer] ) [facility] OUTPATIENT [id number] 04/26 Released w/o Limitations [facility] OUTPATIENT [id number] 04/27 Admitted [facility] OUTPATIENT [id number] 04/28 Released w/o Limitations [facility] [employer] [facility] DIRECT TO [facility] FROM OTHER THAN ER OR [facility] [id number] VERONICA HARRELL 04/28 [facility]ZZZ[place] L TBI Screening Neurology ) INPATIENT [id number] oef/ond concuss ion screen TIFF CURTIS Kari 04/28 [facility]- [facility] [place](ZZZ LSL TBI Screeni ng Neurolo gy) Deven sy [facility] Travis ANDUJAR DIRECT TO [facility] FROM OTHER THAN ER OR U [facility]-[id number] SALVADORATA 05/04 RETURNED TO DUTY DJamar hickey [facility] Travis sy [facility] Travis ANDUJAR(Social Work [facility]) INPATIENT [id number] Social Work Screeni FRED Gonzalez 05/05 Inpatient- Still a Patient DJamar hickey [facility] Travis ANDUJAR(Soci al Work [facility]) Deven sy [facility] [place] ANDUJAR(Physic al Therapy [facility]) INPATIENT [id number] JOSSELINE ARCHULETA 05/10 Inpatient- Still a Patient DJamar hickey [facility] Travis ANDUJAR(Phys ical Therapy [facility]) Deven sy [facility] [place] ANDUJAR(Physic al Therapy [facility]) INPATIENT [id number] JOSSELINE ARCHULETA 05/11 Inpatient- Still a Patient DJamar hickey [facility] Travis ANDUJAR(Phys ical Therapy [facility]) Deven sy [facility] Travis ANDUJAR(Occupa tional Therapy) INPATIENT [id number] TARIQ MURRIETA 05/11 Inpatient- Still a Patient DJamar hickey [facility] Travis ANDUJAR(Occu pationa l Therapy ) Deven sy [facility] Travis ANDUJAR(Allerg y) INPATIENT [id number] PPD Placeme nt 9E JESSICA ROYAL 05/12 Inpatient- Still a Patient D. D. Skyler hickey [facility] Travis ANDUJAR(Sumit rgy) DJamar sy [facility] Travis ANDUJAR(Physic al Therapy [facility]) INPATIENT [id number] JOSSELINE ARCHULETA 05/12 Inpatient- Still a Patient Deven Holland wer [facility] [place]Phys [place] [facility]) Deven García r [facility] [place] [facility]) INPATIENT [id number] AssessJOSSELINE Musa 05/12 Inpatient- Still a Patient DJamar Holland wer [facility] [place]Phys [place] [facility]) Deven García r [facility] [place] INPATIENT [id number] TARIQ MURRIETA 05/12 Inpatient- Still a Patient DJamar Holland wer [facility] [place]Occ[place] ) Deven García r [facility] [place] [facility]) INPATIENT [id number] PICKETTTAHSIA MENENDEZ 05/13 Inpatient- Still a Patient DJamar Holland wer [facility] [place] [facility]) Deven García r [facility] [place] [facility]) INPATIENT [id number] PICKETTTASHIA MENENDEZ 05/14 Inpatient- Still a Patient DJamar hickey [facility] [place] [facility]) Deven sy [facility] [place] IN[place] [id number] PPD READ--- --9---JESSICA WICK 05/15 Inpatient- Still a Patient DJamar Holland wer [facility] [place] Deven García r [facility] [place] INPATIENT [id number] TARIQ MURRIETA 05/15 Inpatient- Still a Patient DJamar Holland wer [facility] [place] ) Deven García r [facility] [place] [facility]) INPATIENT [id number] JOSSELINE ARCHULETA 05/16 Inpatient- Still a Patient DJamar Holland wer [facility] [place] [facility]) Deven García r [facility] [place] [facility]) INPATIENT [id number] SW Progres s Note/Me t with patient and JOSE ANTONIO AGOSTO F 05/16 Inpatient- Still a Patient D. D. Shanellamanda wer [facility] [place] [facility]) DJamar Reeceenhnicholee r [facility] [place] [facility]) INPATIENT [id number] JOSSELINE ARCHULETA D 05/17 Inpatient- Still a Patient D. D. Katio wer [facility] [place] [facility]) D. Deven Reeceenhnicholee r [facility] [place] [facility]) INPATIENT [id number] Sandores s note/co ord of care JOSE ANTONIO AGOSTO F 05/17 Inpatient- Still a Patient D. D. Shanellamanda wer [facility] [place] [facility]) D. Deven Laurene r [facility] [place] [facility]) INPATIENT [id number] Treatme nt JOSSELINE ARCHULETA D 05/18 Inpatient- Still a Patient D. D. Shanellamanda wer [facility] [place] [facility]) D. Deven García r [facility] [place] [facility]) INPATIENT [id number] JOSSELINE ARCHULETA D 05/18 Inpatient- Still a Patient D. D. Shanellamanda wer [facility] [place] [facility]) D. Deven García r [facility] [place] [facility]) INPATIENT [id number] JOSSELINE ARCHULETA 05/19 Inpatient- Still a Patient D. D. Shanellzairasaravanan wer [facility] [place] [facility]) DJamar García r [facility] [place] [facility] INPATIENT [id number] JOSSELINE ARCHULETA D 05/22 Inpatient- Still a Patient D. D. Shanellamanda wer [facility] [place] [facility] [facility]) OUTPATIENT [id number] l-knee 4btc HOLGER DENIS V 05/25 Released with Work/Duty Limitations [facility] [employer] [facility] [facility] [employer] [facility] TELE CONSULT [id number] needs referra l to ortho for femur fractur e. HOLGER DENIS V 06/01 [facility] [employer] [facility] [facility] [employer]) [place] [id number] Afterca re Followi ng Surgery Of Musculo skeleta l System ANJU SCHAEFFER Tammy 06/05 Released with Work/Duty Limitations [facility] [employer] [facility] [employer]) [place] [id number] Closed fractur e of shaft of femur CLARI ZAMORA 06/06 Released w/o Limitations [facility] [employer] [facility] [employer]) [place] [id number] f/u CLARI ZAMORA 06/09 Released w/o Limitations [facility] [employer] [facility] [employer] [id number] f/u CLARI ZAMORA 06/13 Released w/o Limitations [facility] [employer] [facility] [employer]) [place] [id number] f/u NOAHCLARI 06/15 Released w/o Limitations [facility] [employer] [facility] [employer]) [place] [id number] f/u Lissett meredith PENAMELEND ALEXANDRA, JUDY 06/20 Released w/o Limitations [facility] [employer] [place] [facility] [employer]) [place] [id number] post op ROMIE Nash 06/23 Released w/o Limitations [facility] [employer] [facility] [employer] [id number] F/U left femur ANJU SCHAEFFER 06/27 Released w/o Limitations [facility] [employer] [place] [facility] [employer]) [place] [id number] ORMIE Horton 06/28 Released w/o Limitations [facility] [employer] [place] [facility] [employer] [id number] follow up left leg ANJU SCHAEFFER 07/17 Released with Work/Duty Limitations [facility] [employer] [place] [facility] [employer] [id number] ROMIE Horton 07/18 Released w/o Limitations [facility] [employer] [place] [facility] [employer] [id number] f/u PENAMELEND EZ, JUDY 07/19 Released w/o Limitations [facility] [employer] [place] [facility] [employer] [id number] ROMIE Horton 07/20 Released w/o Limitations [facility] [employer] [place] [facility] [employer] [place] [id number] ok ROMIE Hoskins 07/24 Released w/o Limitations [facility] [employer] [place] [place] [facility] [employer]) [place] [id number] add per ORLANDO Rand 07/26 Released w/o Limitations [facility] [employer] [place] [facility] [employer] [place]) [place] [id number] ok romie DENNIS ROMIE M 07/28 Released w/o Limitations [facility] [employer] [place] [facility] [employer] [place]) [place] [id number] DENNISHILARYOSIRIS Valenzuela 08/01 Released w/o Limitations [facility] [employer] [place] [facility] [employer] [place]) [place] [id number] JOMAR MEDINA 08/03 Released w/o Limitations [facility] [employer] [place] [facility] [employer]) [place] [id number] ORLANDO MAR 08/07 Released w/o Limitations [facility] [employer] [facility] [employer]) [place] [id number] DENNISHILARYOSIRIS Valenzuela 08/09 Released w/o Limitations [facility] [employer] [facility] [employer] [id number] DENNISHILARYOSIRIS Valenzuela 08/11 Released w/o Limitations [facility] [employer] [place] [facility] [employer] [id number] DENNISHILARYOSIRIS Valenzuela 08/15 Released w/o Limitations [facility] [employer] [facility] [employer] [id number] follow up left femur ANJU SCHAEFFER 08/15 Released with Work/Duty Limitations [facility] [employer] [facility] [employer]) [place] [id number] ROMIE COLLINS 08/17 Released w/o Limitations [facility] [employer] [facility] [employer]) [place] [id number] f/u L leg PENAMELEND EZ, JUDY 08/28 Released w/o Limitations [facility] [employer] [facility] [employer]) [place] [id number] ROMIE COLLINS Nicolas 08/31 Released w/o Limitations [facility] [employer] [facility], [employer]) OUTPATIENT [id number] ROMIE COLLINS 09/06 Released w/o Limitations [facility], [employer] [facility], [employer]) OUTPATIENT [id number] EVA VITAL 09/12 Released w/o Limitations [facility], [employer] [facility], [employer]) OUTPATIENT [id number] ROMIE COLLINS Nicolas 09/18 Released w/o Limitations [facility], [employer] [facility], [employer] [place]) OUTPATIENT [id number] f/u PENAMELEND EZ, JUDY 09/25 Released w/o Limitations [facility], [employer] [facility], [employer]) OUTPATIENT [id number] F/u left leg ANJU SCHAEFFER 10/02 Released with Work/Duty Limitations [facility], [employer] [facility] [facility] [employer] [place]) [place] [id number] f/u PENAMELEND EZ, JUDY 11/24 Released w/o Limitations [facility] [employer] [facility] [employer] [place]) [place] [id number] f/u left femur ANJU SCHAEFFER 11/27 Released with Work/Duty Limitations [facility] [employer] [facility] [employer] [place] [id number] annual BUTCH COULTER 12/26 Released w/o Limitations [facility] [employer] [facility] [employer] [place] [id number] f/u PENAMELEND EZ, JUDY 12/26 Released w/o Limitations [facility] [employer] [facility] [employer] [place] [facility] [facility] OUTPATIENT [id number] Profile update 2-506 NAVIN THOMASJONY Cardenas 01/24 Released with Work/Duty Limitations [facility] [employer] [facility] [facility] [employer] [place] [id number] f/u left leg ANJU SCHAEFFER 03/21 Released with Work/Duty Limitations [facility] [employer] [facility] [employer] [place] [id number] fu lt femur ANJU SCHAEFFER 06/12 Released with Work/Duty Limitations [facility] [employer] [facility] [employer] [place] [facility] [id number] Left femur, 2/506 KATHERINE THOMAS Theresa 06/18 Released with Work/Duty Limitations [facility] [employer] [facility] [employer] [place] [id number] pre deploy AMORINE, BROWN M 09/30 Released w/o Limitations [facility] [employer] [place] [facility] [employer] [place] Audiology ) OUTPATIENT [id number] -3 SARAH WATTS 10/24 Released w/o Limitations [facility] [employer] Audiolo gy) [facility] [employer] [place] OUTPATIENT [id number] MAGDALENA CANNON Lissett 09/20 Released w/o Limitations [facility] [employer] [facility] [employer] [place] [place] OUTPATIENT [id number] ENMANUEL PARKINSON V 11/11 Released w/o Limitations [facility] [employer] [place] [facility] [employer] [place] Audiology ) OUTPATIENT [id number] -3 SARAH WATTS 02/03 Released w/o Limitations [facility] [employer] Audiolo gy) [facility] [employer] [place] [place] [id number] annual MICHI KIKA 08/19 Released w/o Limitations [facility] [employer] [place] [facility] [employer] [place] Audiology ) OUTPATIENT [id number] -3 SARAH WATTS 08/24 Released w/o Limitations [facility] [employer] Audiolo gy) [facility] [employer] [place] OUTPATIENT [id number] referra l consult JOSE R JOHNSON 08/27 Released w/o Limitations [facility] [employer] [facility] [employer] [place] [place] TELE CONSULT [id number] Notes Entered by: CLEM LUO 18 Jan 2015 1337 ------- ------- ------- ------- -- Network Results - Sleep Study 12-04-14 Please look in artifac ts and images. ELIZABETHJOSE R 01/18 [facility] [employer] [facility] [employer] [place] S[facility]) TELE CONSULT [id number] Notes Entered by: CLEM LUO 17 Feb 2015 1219 ------- ------- ------- ------- -- Network Results - Sleep Study with CPAP order 01-14-15 Please look in artifac ts ELIZABETHJOSE R 02/17 [facility] [employer] [facility] [employer] [place] [facility] OUTPATIENT [id number] PHA 3-320 ELIZABETHJOSE R 05/19 Released w/o Limitations [facility] [employer] [facility] [employer] [place] [id number] Sore throat/ Cough JOSE R JOHNSON 06/23 Released w/o Limitations [facility] [employer] [facility] [employer] [place] [id number] Rash on back and hands JOSE R JOHNSON 07/29 Released w/o Limitations [facility] [employer] [facility] [employer] [place]) [place] [id number] [facility] BLAYNE JI 08/03 Released w/o Limitations [facility] [employer] [facility] [employer] [place] Audiology ) OUTPATIENT [id number] h-3 SARAH WATTS 08/05 [place]ased [place] Limitations [place] [place] TELE CONSULT [id number] Notes Entered by: PRAFUL JOHNSON 06 Aug 2015 0833 ------- ------- ------- ------- -- Biopsy results RICHIE WARD Brit 08/06 [place]ased [place] Self [facility] [place] [facility] [place] OUTPATIENT [id number] referra l for vasecto DIPTI Denny 05/15 [place] Limitations [place] [place] [id number] 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 TANVI MA 05/26 [place] [id number] Notes Entered by: CAMPOS TRUONG 29 May 2016 1624 ------- ------- ------- ------- -- Opioid Colloid Mill Operator CAMPOS Mohr 05/29 [place] [place] [id number] VAS PROC TANVI TOUSSAINT 06/01 [place] TELE CONSULT [id number] Notes Entered by: Theresa CYR 20 Jul 2016 1009 ------- ------- ------- ------- -- Post Vas LEE ANN Blum 07/20 [place] [place] [place] [place] TELE CONSULT [id number] Notes Entered by: SLIME TOUSSAINT 25 Jul 2016 1701 ------- ------- ------- ------- -- Lab Results TANVI TOUSSAINT 07/25 [place] [place] [place] [place]PATIENT [id number] Notes Entered by: TEZ CENTENO 21 Aug 2016 1311 ------- ------- ------- ------- -- DIPTI YEH 08/21 [place] [place] [place] [place]PATIENT [id number] CPAP DIPTI Smyth 08/28 [place] [place] [place]) [place] [id number] S/GARCÍA L HEARING EXAM NEW ALVARENGA 09/25 [place] [place] OUT[place] [id number] Obstruc tive sleep apnea (adult) ELIUD GUPTA 09/29 [place] [place] [facility] [place] [facility] OUTPATIENT [id number] h3,asym ,mask,t inn// ALDENGARY VALENTIN Viktoria 10/04 [place] [id number] follow up,azucena salas,h 3 profJamar(L TC O)//[phone] CLEMENTE FELIX 11/28 [place]) [place] [id number] LOWER BACK PAIN AUBREY CHERY 05/27 [place] [place] OUTPATIENT [id number] Notes Entered by: TEZ CENTENO 17 Aug 2017 1344 ------- ------- ------- ------- -- VICENTA Day 08/17 [place] [place] Aid Station) OUTPATIENT [id number] Notes Entered by: TEZ CENTENO 04 Sep 2017 1441 ------- ------- ------- ------- -- VICENTA SCHNEIDER 09/04 [place] [place]) [place] [id number] S/ ANNUAL HEARING LEON CORREA 09/05 [place] [place] [place] [id number] Notes Entered by: CHAPIN HARRELL 06 Feb 2018 1302 ------- ------- ------- ------- -- Vaccsummer mcneal - CHAPIN Delacruz 02/06 [place] [place] [place] [id number] MONE RUCKER 06/16 [place] [place] [place] [id number] Notes Entered by: CHAPIN RAMIREZ 19 Jun 2018 1145 ------- ------- ------- ------- -- ER visit follow up CHAPIN RAMIREZ 06/19 [place] [place] [place] [id number] 9 Notes Entered by: ROSIE MONTES 09 Sep 2018 0708 ------- ------- ------- ------- -- immuniz VICENTA Cortez 09/09 [place] [place] [place] [place] [id number] Notes Entered by: CHAPIN HARRELL 09 Sep 2018 1056 ------- ------- ------- ------- -- Cathy mcneal - VICENTA Sommers 09/09 [place] [facility] [place] [place]PATIENT [id number] 5 bilat.lissett eg VICENTA Cardoza 09/16 [place] [place] OUTPATIENT [id number] Notes Entered by: Leila BOOKER 23 Sep 2018 0853 ------- ------- ------- ------- -- INITIAL APPOINT MENT RUBA PALACIO 09/23 [place] [place] OUTPATIENT [id number] 0 Pain in left leg NAOMI BANDA 10/09 [place] [place] OUTPATIENT [id number] Notes Entered by: Leila PALACIO 23 Oct 2018 0847 ------- ------- ------- ------- -- NCM-fol low-up call RUBA PALACIO 10/23 [place] [place] OUTPATIENT [id number] 2 F/UP AFTER MRI NAOMI BANDA 11/08 [place] [place] OUTPATIENT [id number] 5 Notes Entered by: Leila PALACIO 12 Nov 2018 1013 ------- ------- ------- ------- -- NCM-Mul ti-D care plan/ca re coordin ation RUBA PALACIO 11/12 [place] [place]) [place] [id number] Initial BRUCE MOMIN 11/13 [place] OUTPATIENT [id number] 5 Intra-a rticula r left knee injecti on/mult i-D pt of . Rosina YOUSSEF LALO ALECIA 11/26 [place] [place] OUTPATIENT [id number] Notes Entered by: Leila PALACIO 11 Dec 2018 1307 ------- ------- ------- ------- -- WOOD-shaylee low-up call RUBA PALACIO 12/11 [place] [place] OUTPATIENT [id number] 5 follow- up NAOMI BANDA 01/01 [place] [place] [id number] LEG PAIN BRUCE MOMIN 01/02 [place] [id number] 2 LEG PAIN ADILENE ROPER 01/06 [place] [id number] 2 LEG PAIN ADILENE ROPER 01/08 [place] [id number] 7 s/THERESA Michaud 01/08 [place] OUTPATIENT [id number] Notes Entered by: Leila PALACIO 09 Jan 2019 1036 ------- ------- ------- ------- -- NCM-fol low-up call RUBA PALACIO 01/09 [place] [place]) [place] [id number] 1 Chondro malacia , left knee FEDE DOWNING 01/13 [place] [id number] 0 f/u l knee FEDE DOWNING 02/04 [place] OUTPATIENT [id number] 2 FOLLOW UP NAOMI BANDA 02/06 [place] [place] OUTPATIENT [id number] 3 Notes Entered by: Leila PALACIO 07 Feb 2019 1057 ------- ------- ------- ------- -- NCM-fol low-up call RUBA PALACIO 02/07 [place] [place] [place] [id number] 3 VICENTA TAYLOR 02/27 [place] OUTPATIENT [id number] FOLLOW UP NAOMI BANDA NARDA 04/17 [place] [place] [id number] 0 Pain in left thigh/N ARSUM PER JHONATAN/ SONNY TRINH 06/03 [place] [place] [facility] [facility] [place] [address]([facility]) OUTPATIENT [id number] Notes Entered by: NENA CAIN 13 Jun 2019 1010 ------- ------- ------- ------- -- MTB DA 3947 approva l NENA CAIN 06/13 Released w/o Limitations [place] [address]([facility]) [facility] Outpatient Encounter [id number] SUKHJINDER CLINE RID 09/20 [facility] Outpatient Encounter [id number] 10/04 [facility] Outpatient Encounter [id number] 10/06 [facility] Outpatient Encounter [id number] 10/06 [facility] Outpatient Encounter [id number] 10/23 [facility] Procedures Combined list of: 1) Procedures from Department of Veterans Affairs facilities going back up to thelast 18 months, not all VA non-surgical procedures are included; 2) All procedures from the Department of Defense facilities. Procedure Procedure Type Code Date Madhuri Hodges PSYCHIATRIC DIAGNOSTIC EVALUATION 2017 [facility] PSYCHIATRIC DIAGNOSTIC EVALUATION 2017 [facility] HEPATITIS A AND HEPATITIS B VACCINE (HEPA-HEPB), ADULT DOSAGE, FOR INTRAMUSCULAR USE 2006 [facility] LIGHT COMPRESSION BANDAGE, ELASTIC, KNITTED/WOVEN, WIDTH GREATER THAN OR EQUAL TO THREE INCHES AND LESS THAN FIVE INCHES, PER YARD 2006 [facility] SCREENING TEST OF VISUAL ACUITY, QUANTITATIVE, BILATERAL 2006 [facility] PATIENT EDUCATION, NOT OTHERWISE CLASSIFIED, NON-PHYSICIAN PROVIDER, GROUP, PER SESSION 2006 [facility] HEPATITIS A AND HEPATITIS B VACCINE (HEPA-HEPB), ADULT DOSAGE, FOR INTRAMUSCULAR USE 2006 [facility] PATIENT EDUCATION, NOT OTHERWISE CLASSIFIED, NON-PHYSICIAN PROVIDER, GROUP, PER SESSION 2006 [facility] BUPRENORPHINE IMPLANT, 74.2 MG 2006 [facility] INJECTION OF ANESTHETIC INTO SPINAL CANAL FOR ANALGESIA 2010 [facility] NONEXCISIONAL DEBRIDEMENT OF WOUND, INFECTION, OR BURN 2010 [facility] DAILY HOSPITAL MANAGEMENT OF EPIDURAL OR SUBARACHNOID CONTINUOUS DRUG ADMINISTRATION 2010 [facility] DEBRIDEMENT, MUSCLE AND/OR FASCIA (INCLUDES EPIDERMIS, DERMIS, AND SUBCUTANEOUS TISSUE, IF PERFORMED); FIRST 20 SQ CM OR LESS 2010 [facility] DAILY HOSPITAL MANAGEMENT OF EPIDURAL OR SUBARACHNOID CONTINUOUS DRUG ADMINISTRATION 2010 [facility] SMOKING AND TOBACCO CESSATION COUNSELING VISIT FOR THE ASYMPTOMATIC PATIENT; INTERMEDIATE, GREATER THAN 3 MINUTES, UP TO 10 MINUTES 2010 [facility] DEBRIDEMENT, MUSCLE AND/OR FASCIA (INCLUDES EPIDERMIS, DERMIS, AND SUBCUTANEOUS TISSUE, IF PERFORMED); FIRST 20 SQ CM OR LESS 2010 [facility] INTERNAL FIXATION OF FEMUR WITHOUT FRACTURE REDUCTION 2010 [facility] DEBRIDEMENT OF OPEN FRACTURE OF FEMUR 2010 [facility] THERAPEUTIC ACTIVITIES, DIRECT (ONE-ON-ONE) PATIENT CONTACT (USE OF DYNAMIC ACTIVITIES TO IMPROVE FUNCTIONAL PERFORMANCE), EACH 15 MINUTES 2010 [facility] POSTOPERATIVE FOLLOW-UP VISIT, NORMALLY INCLUDED IN THE SURGICAL PACKAGE, INDICATE THAT EVALUATION & MANAGEMENT SERVICE WAS PERFORMED DURING A POSTOPERATIVE PERIOD REASON RELATED ORIGINAL PROCEDURE 2010 [facility] POSTOPERATIVE FOLLOW-UP VISIT, NORMALLY INCLUDED IN THE SURGICAL PACKAGE, INDICATE THAT EVALUATION & MANAGEMENT SERVICE WAS PERFORMED DURING A POSTOPERATIVE PERIOD REASON RELATED ORIGINAL PROCEDURE 2010 [facility] POSTOPERATIVE FOLLOW-UP VISIT, NORMALLY INCLUDED IN THE SURGICAL PACKAGE, INDICATE THAT EVALUATION & MANAGEMENT SERVICE WAS PERFORMED DURING A POSTOPERATIVE PERIOD REASON RELATED ORIGINAL PROCEDURE 2010 [facility] THERAPEUTIC PROCEDURE, 1 OR MORE AREAS, EACH 15 MINUTES; GAIT TRAINING (INCLUDES STAIR CLIMBING) 2010 [facility] THERAPEUTIC ACTIVITIES, DIRECT (ONE-ON-ONE) PATIENT CONTACT (USE OF DYNAMIC ACTIVITIES TO IMPROVE FUNCTIONAL PERFORMANCE), EACH 15 MINUTES 2010 [facility] HEALTH AND BEHAVIOR INTERVENTION, EACH 15 MINUTES, [id number]; INDIVIDUAL 2010 [facility] THERAPEUTIC ACTIVITIES, DIRECT (ONE-ON-ONE) PATIENT CONTACT (USE OF DYNAMIC ACTIVITIES TO IMPROVE FUNCTIONAL PERFORMANCE), EACH 15 MINUTES 2010 [facility] HEALTH AND BEHAVIOR INTERVENTION, EACH 15 MINUTES, [id number]; INDIVIDUAL 2010 [facility] THERAPEUTIC PROCEDURE, 1 OR MORE AREAS, EACH 15 MINUTES; THERAPEUTIC EXERCISES TO DEVELOP STRENGTH AND ENDURANCE, RANGE OF MOTION AND FLEXIBILITY 2010 [facility] THERAPEUTIC PROCEDURE, 1 OR MORE AREAS, EACH 15 MINUTES; GAIT TRAINING (INCLUDES STAIR CLIMBING) 2010 [facility] SELF-CARE/HOME MANAGMENT TRAIN (EG,ACT OF DAILY LIVING [...] ENDURANCE, RANGE OF MOTION AND FLEXIBILITY 2010 [facility] SKIN TEST; TUBERCULOSIS, INTRADERMAL 2010 [facility] POSTOPERATIVE [...] POSTOPERATIVE PERIOD REASON RELATED ORIGINAL PROCEDURE 2010 [facility] THERAPEUTIC ACTIVITIES, DIRECT (ONE-ON-ONE) PATIENT CONTACT (USE [...] PSYCHOPHYSICOLOGICAL MONITOR, HEALTH-ORIENT QUESTIONNAIRES), EA 15 MIN [id number] W THE PATIENT; INIT ASSESSMENT 2010 [facility] INDIVIDUAL PSYCHOTHERAPY, INSIGHT ORIENTED, BEHAVIOR MODIFYING AND/OR SUPPORTIVE, IN AN OFFICE OR OUTPATIENT FACILITY, APPROXIMATELY 20 TO 30 MINUTES [id number] WITH THE PATIENT 2010 [facility] DEBRIDEMENT INCLUDING REMOVAL OF FOREIGN MATERIAL AT THE SITE OF AN OPEN FRACTURE AND/OR AN OPEN DISLOCATION (EG, EXCISIONAL DEBRIDEMENT); SKIN, SUBCUTANEOUS TISSUE, MUSCLE FASCIA, MUSCLE, AND BONE 2010 [facility] COORDINATED CARE FEE, MAINTENANCE RATE 2019 [facility] COORDINATED CARE FEE, MAINTENANCE RATE 2018 [facility] COORDINATED CARE FEE, MAINTENANCE RATE 2018 [facility] BRIEF EMOTIONAL/BEHAVIORAL ASSESSMENT (EG, DEPRESSION INVENTORY, ATTENTION-DEFICIT/HYPER ACTIVITY DISORDER [ADHD] SCALE), WITH SCORING AND DOCUMENTATION, PER STANDARDIZED INSTRUMENT 2018 [facility] CASE MANAGEMENT, EACH 15 MINUTES 2018 [facility] ARTHROCENTESIS, ASPIRATION AND/OR INJECTION, MAJOR JOINT OR BURSA (EG, SHOULDER, HIP, KNEE, SUBACROMIAL BURSA); WITHOUT ULTRASOUND GUIDANCE 2018 [facility] CASE MANAGEMENT, EACH 15 MINUTES 2018 [facility] PATIENT EDUCATION, NOT OTHERWISE CLASSIFIED, NON-PHYSICIAN PROVIDER, GROUP, PER SESSION 2018 [facility] ACUPUNCTURE, 1/MORE NEEDLES; W ELECTRICAL STIMULATION, EA ADDITIONAL 15 MINUTES, PERSONAL ONE-ON-ONE CONTACT W THE PATIENT, W RE-INSERTION, NEEDLE(S) (LIST SEPARATELY ADDITION CODE, 1 PROCEDURE) 2018 [facility] APPLICATION OF A MODALITY TO 1 OR MORE AREAS; INFRARED 2018 [facility] APPLICATION OF A MODALITY TO 1 OR MORE AREAS; INFRARED 2018 [facility] CASE MANAGEMENT, EACH 15 MINUTES 2018 [facility] UNLISTED ULTRASOUND PROCEDURE (EG, DIAGNOSTIC, INTERVENTIONAL) 2018 [facility] APPLICATION OF A MODALITY TO 1 OR [...] 1 VACCINE (SINGLE OR COMBINATION VACCINE/TOXOID) 2016 [facility] THERAPEUTIC, PROPHYLACTIC, OR DIAGNOSTIC INJECTION (SPECIFY SUBSTANCE OR DRUG); SUBCUTANEOUS OR INTRAMUSCULAR 2016 [facility] FILTERED SPEECH TEST 2016 [facility] ACOUSTIC IMMITTANCE TESTING, INCLUDES TYMPANOMETRY (IMPEDANCE TESTING), ACOUSTIC REFLEX THRESHOLD TESTING, AND ACOUSTIC REFLEX DECAY TESTING 2015 [facility] EAR MOLD/INSERT, NOT DISPOSABLE, ANY TYPE 2015 [facility] VASECTOMY, UNILATERAL OR BILATERAL (SEPARATE PROCEDURE), INCLUDING POSTOPERATIVE SEMEN EXAM(S) 2015 [facility] EDUCATION &TRAINING, PATIENT SELF-MGT QUALIFIED, NONPHYSICIAN HEALTH REFRIGERATION SPECIALIST USING STANDARDIZED CURRICULUM, [id number] W THE PATIENT (COULD INCL CAREGIVER/FAMILY) EA 30 MIN; 2-4 PATIENTS 2015 [facility] COMPREHENSIVE AUDIOMETRY THRESHOLD EVALUATION AND SPEECH RECOGNITION (46579 AND 78350 COMBINED) 2014 [facility] PURE TONE AUDIOMETRY (THRESHOLD), AUTOMATED; AIR ONLY 2014 [facility] SPEECH AUDIOMETRY THRESHOLD; WITH SPEECH RECOGNITION 2013 [facility] PURE TONE AUDIOMETRY (THRESHOLD), AUTOMATED; AIR ONLY 2013 [facility] ACOUSTIC IMMITTANCE TESTING, INCLUDES TYMPANOMETRY (IMPEDANCE TESTING), ACOUSTIC REFLEX THRESHOLD TESTING, AND ACOUSTIC REFLEX DECAY TESTING 2013 [facility] AUDIOMETRIC TESTING OF GROUPS 2013 [facility] TYPHOID VACCINE, CAPSULAR POLYSACCHARIDE (VICPS), FOR INTRAMUSCULAR USE 2012 [facility] DISTORTION PRODUCT EVOKED OTOACOUS EMISSIONS;LIMITED EVALUATION (TO CONFIRM THE PRESENCE/ABSENCE OF HEARING DISORDER,3-6 FREQUENCIES)/TRANSIENT EVOKED OTOACOUS EMISSIONS,W INTERPRETATION &REPORT 2012 [facility] AUDIOMETRIC TESTING OF GROUPS 2011 [facility] PHYSICAL THERAPY RE-EVALUATION 2011 [facility] EAR MOLD/INSERT, NOT DISPOSABLE, ANY TYPE 2011 [facility] PHYSICAL THERAPY RE-EVALUATION 2011 [facility] PHYSICAL THERAPY RE-EVALUATION 2010 [facility] THERAPEUTIC PROCEDURE, 1 OR MORE AREAS, EACH 15 MINUTES; THERAPEUTIC EXERCISES TO DEVELOP STRENGTH AND ENDURANCE, RANGE OF MOTION AND FLEXIBILITY 2010 [facility] THERAPEUTIC PROCEDURE,1 OR MORE AREAS,EACH 15 MINUTES;NEUROMUSCULAR REEDUCATION OF MOVEMENT,BALANCE,COORDI NATION,KINESTHETIC SENSE,POSTURE,AND/OR PROPRIOCEPTION FOR SITTING AND/OR STANDING ACTIVITIES 2010 [facility] THERAPEUTIC PROCEDURE, 1 OR MORE AREAS, EACH 15 MINUTES; THERAPEUTIC EXERCISES TO DEVELOP STRENGTH AND ENDURANCE, RANGE OF MOTION AND FLEXIBILITY 2010 [facility] THERAPEUTIC PROCEDURE,1 OR MORE AREAS,EACH 15 MINUTES;NEUROMUSCULAR REEDUCATION OF MOVEMENT,BALANCE,COORDI NATION,KINESTHETIC SENSE,POSTURE,AND/OR PROPRIOCEPTION FOR SITTING AND/OR STANDING ACTIVITIES 2010 [facility] PHYSICAL THERAPY RE-EVALUATION 2010 [facility] THERAPEUTIC PROCEDURE, [...] ENDURANCE, RANGE OF MOTION AND FLEXIBILITY 2010 [facility] MANUAL THERAPY TECHNIQUES (EG, MOBILIZATION/ MANIPULATION, MANUAL LYMPHATIC DRAINAGE, MANUAL TRACTION), 1 OR MORE REGIONS, EACH 15 MINUTES 2010 [facility] MANUAL THERAPY TECHNIQUES (EG, MOBILIZATION/ MANIPULATION, MANUAL LYMPHATIC DRAINAGE, MANUAL TRACTION), 1 OR MORE REGIONS, EACH 15 MINUTES 2010 [facility] MANUAL THERAPY TECHNIQUES (EG, MOBILIZATION/ MANIPULATION, MANUAL LYMPHATIC DRAINAGE, MANUAL TRACTION), 1 OR MORE REGIONS, EACH 15 MINUTES 2010 [facility] MANUAL THERAPY TECHNIQUES (EG, MOBILIZATION/ MANIPULATION, MANUAL LYMPHATIC DRAINAGE, MANUAL TRACTION), 1 OR MORE REGIONS, EACH 15 MINUTES 2010 [facility] MANUAL THERAPY TECHNIQUES (EG, MOBILIZATION/ MANIPULATION, MANUAL LYMPHATIC DRAINAGE, MANUAL TRACTION), 1 OR MORE REGIONS, EACH 15 MINUTES 2010 [facility] PHYSICAL THERAPY RE-EVALUATION 2010 [facility] MANUAL THERAPY TECHNIQUES (EG, MOBILIZATION/ MANIPULATION, MANUAL LYMPHATIC DRAINAGE, MANUAL TRACTION), 1 OR MORE REGIONS, EACH 15 MINUTES 2010 [facility] THERAPEUTIC PROCEDURE, 1 OR MORE AREAS, EACH 15 MINUTES; THERAPEUTIC EXERCISES TO DEVELOP STRENGTH AND ENDURANCE, RANGE OF MOTION AND FLEXIBILITY 2010 [facility] POSTOPERATIVE FOLLOW-UP VISIT, NORMALLY INCLUDED IN THE SURGICAL PACKAGE, INDICATE THAT EVALUATION & MANAGEMENT SERVICE WAS PERFORMED DURING A POSTOPERATIVE PERIOD REASON RELATED ORIGINAL PROCEDURE 2010 [facility] MANUAL THERAPY TECHNIQUES (EG, MOBILIZATION/ MANIPULATION, MANUAL LYMPHATIC DRAINAGE, MANUAL TRACTION), 1 OR MORE REGIONS, EACH 15 MINUTES 2010 [facility] THERAPEUTIC PROCEDURE, 1 OR MORE AREAS, EACH 15 MINUTES; THERAPEUTIC EXERCISES TO DEVELOP STRENGTH AND ENDURANCE, RANGE OF MOTION AND FLEXIBILITY 2010 [facility] THERAPEUTIC PROCEDURE, 1 OR MORE AREAS, EACH 15 MINUTES; THERAPEUTIC EXERCISES TO DEVELOP STRENGTH AND ENDURANCE, RANGE OF MOTION AND FLEXIBILITY 2010 [facility] APPLICATION OF A MODALITY TO 1 OR MORE AREAS; ELECTRICAL STIMULATION (MANUAL), EACH 15 MINUTES 2010 [facility] THERAPEUTIC PROCEDURE, 1 OR MORE AREAS, EACH 15 MINUTES; THERAPEUTIC EXERCISES TO DEVELOP STRENGTH AND ENDURANCE, RANGE OF MOTION AND FLEXIBILITY 2010 [facility] RANGE OF MOTION MEASUREMENTS AND REPORT (SEPARATE PROCEDURE); EACH EXTREMITY (EXCLUDING HAND) OR EACH TRUNK SECTION (SPINE) 2010 [facility] POSTOPERATIVE FOLLOW-UP VISIT, NORMALLY INCLUDED IN THE SURGICAL PACKAGE, INDICATE THAT EVALUATION & MANAGEMENT SERVICE WAS PERFORMED DURING A POSTOPERATIVE PERIOD REASON RELATED ORIGINAL PROCEDURE 2010 [facility] ANALYSIS OF CLINICAL DATA STORED IN COMPUTERS (EG, ECGS, BLOOD PRESSURES, HEMATOLOGIC DATA) 2009 [facility] SKIN TEST; TUBERCULOSIS, INTRADERMAL 2009 [facility] MEDICAL NUTRITION THERAPY; GROUP (2 OR MORE INDIVIDUAL(S)), EACH 30 MINUTES 2009 [facility] TYPHOID VACCINE, CAPSULAR POLYSACCHARIDE (VICPS), FOR INTRAMUSCULAR USE 2009 [facility] MEDICAL NUTRITION THERAPY; GROUP (2 OR MORE INDIVIDUAL(S)), EACH 30 MINUTES 2008 [facility] INFLUENZA VIRUS VACCINE, TRIVALENT, LIVE (LAIV3), FOR INTRANASAL USE 2008 [facility] ANTHRAX VACCINE, FOR SUBCUTANEOUS OR INTRAMUSCULAR USE 2008 [facility] RADIOLOGIC EXAMINATION, KNEE; 1 OR 2 VIEWS 2008 [facility] INFLUENZA VIRUS VACCINE, TRIVALENT, LIVE (LAIV3), FOR INTRANASAL USE 2008 [facility] PHYSICAL THERAPY EVALUATION 2008 [facility] SKIN TEST; TUBERCULOSIS, INTRADERMAL 2008 [facility] ANTHRAX VACCINE, FOR SUBCUTANEOUS OR INTRAMUSCULAR USE 2007 [facility] KNEE ORTHOSIS, ELASTIC WITH JOINTS, PREFABRICATED ITEM THAT HAS BEEN TRIMMED, BENT, MOLDED, ASSEMBLED, OR OTHERWISE CUSTOMIZED TO FIT A SPECIFIC PATIENT BY AN INDIVIDUAL WITH EXPERTISE 2007 [facility] PHYSICAL THERAPY RE-EVALUATION 2007 [facility] HEPATITIS B VACCINE (HEPB), ADULT DOSAGE, 3 DOSE SCHEDULE, FOR INTRAMUSCULAR USE 2007 [facility] PHYSICAL THERAPY RE-EVALUATION 2007 [facility] SELF-CARE/HOME MANAGMENT TRAIN (EG,ACT OF DAILY LIVING (ADL) &COMPENSAT TRAIN,MEAL PREPARATION,SAFETY PROCS,AND INSTRUCT IN USE OF ASST TECHNOLOGY DEV/ADPT EQUIP) DIR ONE-ON-ONE CONT,EA 15 MINUTES 2007 [facility] PHYSICAL THERAPY EVALUATION 2007 [facility] VACCINIA IMMUNE GLOBULIN, HUMAN, FOR INTRAMUSCULAR USE 2006 [facility] Modalities Cryotherapy Cold Packs Modalities Cryotherapy Cold Packs 91491 2006 LEAH RÍOS [facility] Athletic Training Evaluation Athletic Training Evaluation 13968 2006 LEAH RÍOS [facility] Patient education, not otherwise cla ified, non-physician provider, group, per se ion 2006 MONE ABEBE [facility] Ear Protector Attenuation Measurements Ear Protector Attenuation Measurements 90920 2006 MONE ABEBE [facility] Audiometry Group Testing Audiometry Group Testing 74695 2006 MONE ABEBE [facility] Coordinated care fee, maintenance rate 2018 NISHI BETHEA Care coordination time 60 mins. [facility] Social Work Individual Outpatient Counseling 20-30 Minutes Social Work Individual Outpatient Counseling 20-30 Minutes [id number] 2018 OUMAR JON [facility] Case Management, each 15 minutes 2018 RUBA PALACIO 150 minutes (at-2,11,16) [facility] Coordinated care fee, maintenance rate 2018 RUBA PALACIO [facility] Case Management, each 15 minutes 2018 RUBA PALACIO 180 mintues (at-2,11,16,18 ) [facility] Coordinated care fee, risk adjusted maintenance 2018 RUBA PALACIO [facility] Patient education, not otherwise cla ified, non-physician provider, group, per se ion 2018 THERESA BURROWS [facility] Threshold Audiogram (Pure Tone) Automated Threshold Audiogram (Pure Tone) Automated 0208T 2018 THERESA BURROWS [facility] Modalities Infrared Treatment Modalities Infrared Treatment 29178 2018 ADILENE ROPER Acupunct One/More [place] W/ Stim Addl 15 Min W/ Reinsertion Acupunct One/More [place] W/ Stim Addl 15 Min W/ Reinsertion 81324 2018 ADILENE ROPER Acupunct One Or More [place] W/ Stimulation Initial 15 Min Acupunct One Or More [place] W/ Stimulation Initial 15 Min 56156 2018 ADILENE ROPER Counselled patient on the [...] [facility] Modalities Infrared Treatment Modalities Infrared Treatment [id number] ADILENE ROPER Acupunct One/More [place] W/O Stim Addl 15 Min W/ Reinsert Acupunct One/More [place] W/O Stim Addl 15 Min W/ Reinsert 35028 2018 ADILENE ROPER Acupunct One Or More [place] W/O Stimulation Initial 15 Min Acupunct One Or More [place] W/O Stimulation Initial 15 Min 47360 2018 ADILENE ROPER Counselled patient on the [...] trtmnt time 50 minutes. [facility] Acupunct One/More [place] W/ Stim Addl 15 Min W/ Reinsertion Acupunct One/More [place] W/ Stim Addl 15 Min W/ Reinsertion 41395 2018 BRUCE MOMIN 1. Pain in Left [...] the Low Back and left thigh region. [place] were inserted into specific locations in affected [...] during treatment, 45 needles removed after treatment. [facility] Modalities Infrared Treatment Modalities Infrared Treatment 58032 2018 BRUCE MOMIN Acupunct One Or More [place] W/ Stimulation Initial 15 Min Acupunct One Or More [place] W/ Stimulation Initial 15 Min 38130 2018 BRUCE MOMIN Case Management, each 15 minutes 2018 RUBA PALACIO 195 minutes (at-2,8,9,16) [facility] Coordinated care fee, risk adjusted maintenance 2018 RUBA PALACIO Ultrasonic Guidance Procedures Ultrasonic Guidance Procedures 73453 2018 LALO YOUSSEF Corticosteroids Injection Intraarticular Left Knee Corticosteroids Injection Intraarticular Left Knee 2018 LALO YOUSSEF Acupunct One/More [place] W/ Stim Addl 15 Min W/ Reinsertion Acupunct One/More [place] W/ Stim Addl 15 Min W/ Reinsertion 61062 2018 BRUCE MOMIN 1. Pain in left [...] in the Low Back and Cervical Region. [place] were inserted into specific locations in affected [...] 3/10. Total treatment time was 50 minutes. [facility] Modalities Infrared Treatment Modalities Infrared Treatment 71526 2018 BRUCE MOMIN [facility] Acupunct One Or More [place] W/ Stimulation Initial 15 Min Acupunct One Or More [place] W/ Stimulation Initial 15 Min 04803 2018 BRUCE MOMIN [facility] Case Management, each 15 minutes 2018 RUBA PALACIO 240 minutes (at-2,7,9,16) [facility] Coordinated care fee, risk adjusted maintenance, Level 3 2018 RUBA PALACIO [facility] Case Management, each 15 minutes 2018 RUBA PALACIO 150 minutes (at-2,11,16) [facility] Coordinated care fee, maintenance rate 2018 RUBA PALACIO [facility] Case Management, each 15 minutes 2017 RUBA PALACIO 300 minutes (at-1,5,9,16) [facility] Coordinated care fee, risk adjusted maintenance 2017 RUBA PALACIO [facility] Immunization Administration One Vaccine Immunization Administration One Vaccine 24388 2017 DARREL ROCKWELL [facility] Immunization Administration One Vaccine Immunization Administration One Vaccine 07805 2017 VICENTA MATIAS [facility] Non-Physician Phone Call To Patient/Provider Brief (5-10min) Non-Physician Phone Call To Patient/Provider Brief (5-10min) 40844 2017 CHAPIN RAMIREZ [facility] Psychiatric Evaluation Comprehensive Examination Psychiatric Evaluation Comprehensive Examination 86628 2017 JOSE ALBERTO EASTON [facility] Telehealth originating site facility fee 2017 VICENTA LARIOS [facility] Telehealth originating site facility fee 2017 VICENTA LARIOS [facility] Psychiatric Evaluation Comprehensive Examination Psychiatric Evaluation Comprehensive Examination 74568 2017 JOSE ALBERTO EASTON [facility] Td Vaccine Seven Years Of Age And Above Preservative Free Td Vaccine Seven Years Of Age And Above Preservative Free 91631 2017 CHAPIN HARRELL Td (adult), adsorbed; Series #: 1; .5 mL; IM; Left Arm; Mfg: [employer]; Lot: [id number]; VIS given (Javy: 01/30/2017). [facility] Immunization Administration One Vaccine Immunization Administration One Vaccine 23867 2017 CHAPIN HARRELL Ear mold/insert, not disposable, any type 2016 LEON CORREA Ear Protector Attenuation Measurements Ear Protector Attenuation Measurements 77851 2016 LEON CORREA Audiometry Group Testing Audiometry Group Testing 61607 2016 LEON CORREA Immunization Administration One Vaccine Immunization Administration One Vaccine 61302 2016 TEZ MACK [facility] Filtered Speech Test Filtered Speech Test 07398 2016 CLEMENTE FELIX [facility] Acoustic Immittance Test Acoustic Immittance Test 43367 2015 GARY OLSEN [facility] Audiometry Mack Test (Pure Tone) Audiometry Mack Test (Pure Tone) 05958 2015 GARY OLSEN Evoked Otoacoustic Leanne ions Comprehensive Evoked Otoacoustic Emissions Comprehensive 13520 2015 GARY OLSEN Comprehensive Audiometry Comprehensive Audiometry 46233 2015 GARY OLSEN Continuous Positive Airway Pre ure Ventilation Continuous Positive Airway Pressure Ventilation 96385 2015 ELIUD GUPTA [facility] Ear Protector Attenuation Measurements Ear Protector Attenuation Measurements 63888 2015 NEW ALVARENGA Ear mold/insert, not disposable, any type 2015 NEW ALVARENGA Audiometry Group Testing Audiometry Group Testing 20696 2015 NEW ALVARENGA [facility] Surgery Of Male Genitalia Vasectomy Surgery Of Male Genitalia Vasectomy 06232 2015 BENEIDCTO GUILLORY [facility] Patient Counseling Medical Management Two To Four Patients Patient Counseling Medical Management Two To Four Patients [address]Supervised Services Provision Of Special Supplies -Supervised Services Provision Of Special Supplies 20686 2014 SARAH WATTS Acoustic Immittance Test Acoustic Immittance Test 17714 2014 SARAH WATTS Comprehensive Audiometry Comprehensive Audiometry 21249 2014 SARAH WATTS Health And Behav A e mt Each 15 Min Initial A e ment Health And Behav Assessmt Each 15 Min Initial Assessment 96101 2014 SARAH WATTS Threshold Audiogram (Pure Tone) Automated Threshold Audiogram (Pure Tone) Automated 0208T 2014 KIKA BORDEN Audiometry Speech Threshold With Discrimination Audiometry Speech Threshold With Discrimination 37863 2013 SARAH WATTS Threshold Audiogram (Pure Tone) Threshold Audiogram (Pure Tone) 19089 2013 SARAH WATTS Threshold Audiogram (Pure Tone) Automated Threshold Audiogram (Pure Tone) Automated 0208T 2013 KIKA BORDEN Acoustic Immittance Test Acoustic Immittance Test 26980 2013 SARAH WATTS Comprehensive Audiometry Comprehensive Audiometry 35430 2013 SARAH WATTS Audiometry Group Testing Audiometry Group Testing 05824 2013 ENMANUEL PARKINSON Evoked Otoacoustic Leanne ions Limited 2012 SARAH WATTS Acoustic Immittance Test Acoustic Immittance Test 12965 2012 SARAH WATTS Comprehensive Audiometry Comprehensive Audiometry 16860 2012 SARAH WATTS Audiometry Group Testing Audiometry Group Testing 62076 2011 KEVIN BURDEN Physical Medicine Physical Therapy Re-Evaluation Physical Medicine Physical Therapy Re-Evaluation 91706 2011 JUDY VELASQUEZ Ear mold/insert, not disposable, any type 2011 BUTCH COULTER [facility] X-Ray Of The Femur Anteroposterior And Lateral Views X-Ray Of The Femur Anteroposterior And Lateral Views 13773 2011 ANJU SCHAEFFER [facility] Physical Medicine Physical Therapy Re-Evaluation Physical Medicine Physical Therapy Re-Evaluation 89166 2011 JERICA VELASQUEZARILYS [facility] Physical Medicine Physical Therapy Re-Evaluation Physical Medicine Physical Therapy Re-Evaluation 23653 2010 JERICA VELASQUEZARILYS [facility] Physical Therapy Neuromuscular Re-education Physical Therapy Neuromuscular Re-education 16816 2010 ROMIE COLLINS [facility] Physical Therapy: ___ Se ion Segments, 15 Minutes Each Physical Therapy: ___ Session Segments, 15 Minutes Each 11638 2010 ROMIE COLLINS [facility] Physical Therapy: ___ Se ion Segments, 15 Minutes Each Physical Therapy: ___ Session Segments, 15 Minutes Each 39185 2010 EVA VITAL [facility] Physical Therapy Neuromuscular Re-education Physical Therapy Neuromuscular Re-education 57321 2010 EVA VITAL [facility] Physical Therapy: ___ Se ion Segments, 15 Minutes Each Physical Therapy: ___ Session Segments, 15 Minutes Each 35697 2010 ROMIE COLLINS [facility] Physical Therapy Neuromuscular Re-education Physical Therapy Neuromuscular Re-education 20809 2010 ROMIE COLLINS [facility] Physical Therapy Neuromuscular Re-education Physical Therapy Neuromuscular Re-education 48638 2010 ROMIE COLLINS [facility] Physical Therapy: ___ Se ion Segments, 15 Minutes Each Physical Therapy: ___ Session Segments, 15 Minutes Each 38535 2010 ROMIE COLLINS [facility] Physical Medicine Physical Therapy Re-Evaluation Physical Medicine Physical Therapy Re-Evaluation 42832 2010 JERICA VELASQUEZARILYS [facility] Physical Therapy Gait Training Physical Therapy Gait Training 81499 2010 ROMIE COLLINS [facility] Physical Therapy: ___ Se ion Segments, 15 Minutes Each Physical Therapy: ___ Session Segments, 15 Minutes Each 20063 2010 ROMIE COLLINS [facility] X-Ray Of The Femur Anteroposterior And Lateral Views X-Ray Of The Femur Anteroposterior And Lateral Views 09361 2010 ANJU SCHAEFFER [facility] Physical Therapy: ___ Se ion Segments, 15 Minutes Each Physical Therapy: ___ Session Segments, 15 Minutes Each 64898 2010 ROMIE COLLINS [facility] Physical Therapy Gait Training Physical Therapy Gait Training 43885 2010 DENNIS ROMIE Valenzuela [facility] Physical Therapy Gait Training Physical Therapy Gait Training 09797 2010 DENNIS ROMIE Valenzuela [facility] Physical Therapy: ___ Se ion Segments, 15 Minutes Each Physical Therapy: ___ Session Segments, 15 Minutes Each 23929 2010 DENNIS ROMIE Nicolas [facility] Physical Therapy Gait Training Physical Therapy Gait Training 05435 2010 DENNIS ROMIE Valenzuela [facility] Physical Therapy: ___ Se ion Segments, 15 Minutes Each Physical Therapy: ___ Session Segments, 15 Minutes Each 99021 2010 DENNIS ROMIE Nicolas [facility] Coordinated care fee, maintenance rate NISHI BETHEA CARE COORDINATION TIME 15 MINS. [facility] Coordinated care fee, maintenance rate NISHI BETHEA CARE COORDINATION TIME 30 MINS. [facility] Physical Therapy Gait Training Physical Therapy Gait Training 93230 2010 ORLANDO MAR [facility] Physical Therapy: ___ Se ion Segments, 15 Minutes Each Physical Therapy: ___ Session Segments, 15 Minutes Each 57917 2010 OR[place] MAR [facility] Physical Therapy Neuromuscular Re-education Physical Therapy Neuromuscular Re-education 98100 2010 JOMAR MEDINA [facility] Physical Therapy: ___ Se ion Segments, 15 Minutes Each Physical Therapy: ___ Session Segments, 15 Minutes Each 28044 2010 JOMAR MEDINA [facility] Physical Therapy Mobilization Joint Physical Therapy Mobilization Joint 81012 2010 ROMIE COLLINS [facility] Physical Therapy: ___ Se ion Segments, 15 Minutes Each Physical Therapy: ___ Session Segments, 15 Minutes Each 60933 2010 ROMIE COLLINS [facility] Physical Therapy Mobilization Joint Physical Therapy Mobilization Joint 96653 2010 ROMIE COLLINS [facility] Physical Therapy: ___ Se ion Segments, 15 Minutes Each Physical Therapy: ___ Session Segments, 15 Minutes Each 63410 2010 ROMIE COLLINS [facility] Physical Therapy Mobilization Joint Physical Therapy Mobilization Joint 73249 2010 ORLANDO MAR [facility] Physical Therapy: ___ Se ion Segments, 15 Minutes Each Physical Therapy: ___ Session Segments, 15 Minutes Each 35842 2010 [place] MAR [facility] Physical Therapy Mobilization Joint Physical Therapy Mobilization Joint 92661 2010 ROMIE COLLINS [facility] Physical Therapy: ___ Se ion Segments, 15 Minutes Each Physical Therapy: ___ Session Segments, 15 Minutes Each 43967 2010 ROMIE COLLINS [facility] Physical Therapy Mobilization Joint Physical Therapy Mobilization Joint 72025 2010 ROMIE COLLINS [facility] Physical Therapy: ___ Se ion Segments, 15 Minutes Each Physical Therapy: ___ Session Segments, 15 Minutes Each 41115 2010 ROMIE COLLINS [facility] Physical Medicine Physical Therapy Re-Evaluation Physical Medicine Physical Therapy Re-Evaluation 21154 2010 JUDY VELASQUEZ [facility] Physical Therapy Mobilization Joint Physical Therapy Mobilization Joint 77591 2010 ROMIE COLLINS [facility] Physical Therapy Neuromuscular Re-education Physical Therapy Neuromuscular Re-education 40575 2010 ROMIE COLLINS [facility] Physical Therapy: ___ Se ion Segments, 15 Minutes Each Physical Therapy: ___ Session Segments, 15 Minutes Each 61633 2010 ROMIE COLLINS [facility] X-Ray Of The Femur Anteroposterior And Lateral Views X-Ray Of The Femur Anteroposterior And Lateral Views 52247 2010 ANJU SCHAEFFER [facility] Exercises A isted Exercises For ROM Exercises Assisted Exercises For ROM 65612 2010 ROMIE COLLINS [facility] Physical Therapy Mobilization Joint Physical Therapy Mobilization Joint 26873 2010 ROMIE COLLINS [facility] Physical Therapy Neuromuscular Re-education Physical Therapy Neuromuscular Re-education 44886 2010 ROMIE COLLINS [facility] Physical Therapy: ___ Se ion Segments, 15 Minutes Each Physical Therapy: ___ Session Segments, 15 Minutes Each 03866 2010 ROMIE COLLINS [facility] Exercises A isted Exercises For ROM Exercises Assisted Exercises For ROM 03464 2010 ROMIE COLLINS [facility] Physical Therapy Mobilization Joint Physical Therapy Mobilization Joint 54696 2010 ROMIE COLLINS [facility] Physical Therapy Neuromuscular Re-education Physical Therapy Neuromuscular Re-education 44063 2010 ROMIE COLLINS [facility] Physical Therapy: ___ Se ion Segments, 15 Minutes Each Physical Therapy: ___ Session Segments, 15 Minutes Each 37561 2010 ROMIE COLLINS [facility] Physical Therapy: ___ Se ion Segments, 15 Minutes Each Physical Therapy: ___ Session Segments, 15 Minutes Each 78166 2010 JUDY VELASQUEZ [facility] Physical Medicine Physical Therapy Evaluation Physical Medicine Physical Therapy Evaluation 04682 2010 [facility] Physical Therapy: ___ Se ion Segments, 15 Minutes Each Physical Therapy: ___ Session Segments, 15 Minutes Each 52302 2010 CLARI ZAMORA Range Of Motion Evaluation Of Extremity Range Of Motion Evaluation Of Extremity 50805 2010 CLARI ZAMORA Modalities Electrical Stimulation Modalities Electrical Stimulation 62669 2010 CLARI ZAMORA Modalities Electrical Stimulation Modalities Electrical Stimulation 83745 2010 CLARI ZAMORA Physical Therapy: ___ Se ion Segments, 15 Minutes Each Physical Therapy: ___ Session Segments, 15 Minutes Each 20543 2010 CLARI ZAMORA Range Of Motion Evaluation Of Extremity Range Of Motion Evaluation Of Extremity 70538 2010 CLARI ZAMORA Exercises A isted Exercises For ROM Exercises Assisted Exercises For ROM 68842 2010 CLARI ZAMORA Exercises A isted Exercises For ROM Exercises Assisted Exercises For ROM 26767 2010 CLARI ZAMORA Physical Therapy: ___ Se ion Segments, 15 Minutes Each Physical Therapy: ___ Session Segments, 15 Minutes Each 63508 2010 CLARI ZAMORA Range Of Motion Evaluation Of Extremity Range Of Motion Evaluation Of Extremity 83601 2010 CLARI ZAMORA Range Of Motion Evaluation Of Extremity Range Of Motion Evaluation Of Extremity 79953 2010 CLARI ZAMORA Physical Therapy: ___ Se ion Segments, 15 Minutes Each Physical Therapy: ___ Session Segments, 15 Minutes Each 20782 2010 CLARI ZAMORA Exercises A isted Exercises For ROM Exercises Assisted Exercises For ROM 00086 2010 CLARI ZAMORA PT A e ment Kinetic Training PT Assessment Kinetic Training 96535 2010 JOSSELINE ARCHULETA [facility] Physical Therapy Gait Training Physical Therapy Gait Training 16221 2010 JOSSELINE ARCHULETA PT A e ment Kinetic Training PT Assessment Kinetic Training 84770 2010 JOSSELINE ARCHULETA [facility] Physical Therapy Gait Training Physical Therapy Gait Training 75532 2010 JOSSELNIE ARCHULETA [facility] PT A e ment Kinetic Training PT Assessment Kinetic Training 89493 2010 JOSSELINE ARCHULETA Physical Therapy Gait Training Physical Therapy Gait Training 86801 2010 JOSSELINE ARCHULETA Exercises A isted Exercises For ROM Exercises Assisted [place]ercises For ROM 23482 2010 JOSSELINE ARCHULETA Physical Therapy Gait Training Physical Therapy Gait Training 48255 2010 JOSSELINE ARCHULETA Exercises A isted Exercises For ROM Exercises Assisted Exercises For ROM 75301 2010 JOSSELINE ARCHULETA Training And Self-Care Skills Additional 15 Minutes Training And Self-Care Skills Additional 15 Minutes 17464 2010 TASHIA PICKETT Total treatment time was 15 mins. [facility] Physical Therapy Gait Training Physical Therapy Gait Training 10789 2010 TASHIA PICKETT Total treatment time was 30 mins. [facility] Health And Behavior Intervention, Each 15 Minutes Individual Health And Behavior Intervention, Each 15 Minutes Individual 41243 2010 JOSE ANTONIO AGOSTO [facility] Health And Behavior Intervention, Each 15 Minutes Individual Health And Behavior Intervention, Each 15 Minutes Individual 47069 2010 JOSE ANTONIO AGOSTO DoD Training And Self-Care Skills Training And Self-Care Skills 59051 2010 TARIQ MURRIETA DoD Training And Self-Care Skills Additional 15 Minutes Training And Self-Care Skills Additional 15 Minutes 64481 2010 TASHIA PICKETT Total treatment time was 15 mins. [facility] Physical Therapy Gait Training Physical Therapy Gait Training 69847 2010 TASHIA PICKETT Total treatment time was 30 mins. DoD Training And Self-Care Skills Training And Self-Care Skills 56060 2010 TARIQ MURRIETA Exercises A isted Exercises For ROM Exercises Assisted Exercises For ROM 77103 2010 JOSSELINE ARCHULETA Physical Therapy Gait Training Physical Therapy Gait Training 00959 2010 JOSSELINE ARCHULETA PT A e ment Kinetic Training PT Assessment Kinetic Training 08917 2010 JOSSELINE ARCHULETA [facility] Physical Medicine Physical Therapy Evaluation Physical Medicine Physical Therapy Evaluation 81298 2010 JOSSELINE ARCHULETA [facility] Skin Test Anergy Tuberculin Intradermal Skin Test Anergy Tuberculin Intradermal 52996 2010 CHANTELLE MERCER [facility] Training And Self-Care Skills Training And Self-Care Skills 29086 2010 TARIQ MURRIETA [facility] Occupational Therapy Evaluation Occupational Therapy Evaluation 22969 2010 TARIQ MURRIETA [facility] Health And Behav A e mt Each 15 Min Initial A e ment Health And Behav Assessmt Each 15 Min Initial Assessment 16276 2010 FRED YI Health And Behav A e mt Each 15 Min Initial A e ment Health And Behav Assessmt Each 15 Min Initial Assessment 96653 2010 FRED YI [facility] Social Work Individual Outpatient Counseling 20-30 Minutes Social Work Individual Outpatient Counseling 20-30 Minutes 25349 2010 CHANEL FELTON [facility] Special Barriga Services Analysis Of Computerized Data Special Barriga Services Analysis Of Computerized Data 15590 2009 TEDDY MCHUGH Audiometry Group Testing Audiometry Group Testing [id number] 2009 TEDDY MCHUGH [facility] Threshold Audiogram (Pure Tone) Threshold Audiogram (Pure Tone) [id number] 2009 TEDDY MCHUGH [facility] Medical Nutrition Therapy Group (2 or More Individual(s)) Medical Nutrition Therapy Group (2 or More Individual(s)) [id number] 2009 CITLALI VILLAGRAN [facility] Physical Medicine Physical Therapy Evaluation Physical Medicine Physical Therapy Evaluation [id number] 2009 TERRA SORIANO Pnt screened at [facility]. Please refer to SF 600 for details. [facility] Medical Nutrition Therapy Group (2 or More Individual(s)) Medical Nutrition Therapy Group (2 or More Individual(s)) [id number] 2008 CITLALI VILLAGRAN [facility] X-Ray Knee Views Anteroposterior And Lateral Views [See R,L] X-Ray Knee Views Anteroposterior And Lateral Views [See R,L] [id number] 2008 ANJU SCHAEFFER [facility] Knee orthosis, elastic with joints, prefabricated, includes fitting and adjustment 2007 CASEY BETANCOURT [facility] Patient Counseling Medical Management Individual Patient Patient Counseling Medical Management Individual Patient [id number] 2007 TERRA SORIANO [facility] Physical Therapy: ___ Se ion Segments, 15 Minutes Each Physical Therapy: ___ Session Segments, 15 Minutes Each [id number] 2007 TERRA SORIANO [facility] Physical Medicine Physical Therapy Re-Evaluation Physical Medicine Physical Therapy Re-Evaluation [id number] 2007 TERRA SORIANO [facility] Physical Medicine - Group Physical Therapy Se ion Physical Medicine - Group Physical Therapy Session [id number] 2007 ADAN GOODMAN Phys Therapy Education Self Care Training - Per 15 Minutes Phys Therapy Education Self Care Training - Per 15 Minutes [id number] 2007 ADAN GOODMAN [facility] Physical Therapy: ___ Se ion Segments, 15 Minutes Each Physical Therapy: ___ Session Segments, 15 Minutes Each [id number] 2007 ADAN GOODMAN Physical Therapy Neuromuscular Re-education Physical Therapy Neuromuscular Re-education 23839 2007 ADAN GOODMAN Physical Medicine Physical Therapy Re-Evaluation Physical Medicine Physical Therapy Re-Evaluation [id number] 2007 TERRA SORIANO [facility] Physical Therapy: ___ Se ion Segments, 15 Minutes Each Physical Therapy: ___ Session Segments, 15 Minutes Each [id number] 2007 TERRA SORIANO [facility] Patient Counseling Medical Management Individual Patient Patient Counseling Medical Management Individual Patient [id number] 2007 TERRA SORIANO [facility] Physical Medicine Physical Therapy Evaluation Physical Medicine Physical Therapy Evaluation [id number] 2007 TERRA SORIANO [facility] Light compre ion bandage, elastic, knitted/woven, width greater than or equal to three inches and le than five inches, per yard 2006 LEAH RÍOS hinged knee brace [facility] Modalities Electrical Stimulation Unattended Modalities Electrical Stimulation Unattended [id number] 2006 LEAH RÍOS Social History Combined list of available smoking, tobacco, and other 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 Social History Type Response Date Comment [facility] e Tobacco smoking status NHIS VA-TOBACCO USER SOME DAYS 03/06/2023 [facility] History of tobacco use VA-TOBACCO DOESNT USE WI 30 MIN WAKEUP 03/06/2023 [facility] History of tobacco use VA-TOBACCO USE CO UNSEL NO 09/03/2019 [facility] This section is an empty social history section. DoD
--- NOTE | 2025-02-13 11:41 | ED_ITS ---
HPI - Skin/Abscess/Foreign Bdy General Chief complaint: Skin/Abscess/Foreign Body Stated complaint: hives Time Seen by Provider: 02/13/25 11:20 Source: patient and RN notes reviewed Mode of arrival: ambulatory Limitations: no limitations History of Present Illness HPI narrative: Hiygty-qizp-plmv-old male presents Express Care complaining of a rash over his body. Patient says that he was doing yd work approximately 11 days ago any notice a rash developed on his right bicep a day later. Patient states he has poison shana in his yd bleed is unsure if he is not in contact with any while doing yd work. On day 7 the rash has spread throughout his body on to his arms, hands, tops of his feet, and legs and trunk. Patient says it is itchy. Patient denies any bug bites or tick bites. Patient denies any fevers, body aches, chills, upper respiratory symptoms, muscle aches. Patient denies any difficulty breathing, swelling to his face, throat, neck. Patient has been using [id number] hydrocortisone and antihistamines for the itchiness. Patient denies any changes in medications. Related Data Home Medications ?Medication ?Instructions ?Recorded ?Confirmed ?Last Taken ?Type Testosterone TRIT 1 tablet tablet mg sublingual #1 tablet 02/13/25 Unknown History cholecalciferol (vitamin D3) 1,250 02/13/25 Unknown History mcg (50,000 unit) capsule Allergies Allergy/AdvReac Type Severity Reaction Status Date / Time No Known Allergies Allergy Verified 02/13/25 11:06 Review of Systems Review of Systems: CONSTITUTIONAL: Denies fever, chills, body aches, or sweats. EYES: Denies visual changes, redness, or discharge. ENT: Denies rhinorrhea, congestion, sore throat, swelling, difficulty swallowing, or otalgia. CARDIOVASCULAR: Denies chest pain, palpitations, or edema. RESPIRATORY: Denies cough or dyspnea. GASTROINTESTINAL: Denies abdominal pain, nausea, vomiting, or diarrhea. GENITOURINARY: Denies dysuria or hematuria. SKIN: Positive for rash and itching. MUSCULOSKELETAL: Denies back pain, joint pain, or myalgia. NEUROLOGIC: Denies headache, numbness, or weakness. PSYCHIATRIC: Denies anxiety or depression. All other systems reviewed are negative, except as documented in HPI. PMFSH Comments At the time of my signature, I reviewed and agree with the nursing past medical, surgical, social, and family history. There is no relevant family history pertinent to the patient complaint. Exam Narrative: GENERAL: This is a well-nourished, well-developed adult, in no apparent distress. They are non ill-appearing, nontoxic appearing. HEAD: normocephalic, atraumatic. EYES: Sclera clear/white. Conjunctivae normal bilaterally. Vision is grossly intact. Extraocular movements intact EARS: External ears normal, Hearing grossly intact. NOSE: External nose normal THROAT: Mucous membranes moist, posterior pharynx clear without swelling her erythema. No ulcerations or sores. Uvula midline. No exudate NECK: Neck supple, non-tender without lymphadenopathy, masses or thyromegaly. CARDIOVASCULAR: Regular rate and rhythm without murmurs, gallops, or rubs. RESPIRATORY: Respiratory rate normal, respiratory effort nonlabored, no respiratory distress SKIN: Erythematous macular rash the patient's right anterior bicep. There is a vesicular papular rash scattered throughout the patient's arms, trunk, dorsal and palmar surface of hands, legs, and dorsal surface of feet. No rash on the face. No surrounding cellulitis, no induration, no exudate, no area of fluctuance. NEURO: awake, alert, and oriented to person, place and time. There were no obvious focal neurologic abnormalities. EXTREMITIES: No joint tenderness, effusion, or edema noted. BACK: Nontender without deformity. No CVA tenderness. Course Course Emergency Course: Patient is aware of diagnosis, understands and agrees to treatment plan. Anticipatory guidance given. Patient agrees to follow-up as directed and is aware of reasons to seek care at the emergency department. Portions of this record may have been created with voice recognition software Level of Care: Express Care Visit Vital Signs Vital signs: Vital Signs Temperature 97.8 F 02/13/25 11:07 Pulse Rate 89 02/13/25 11:07 Respiratory Rate 16 02/13/25 11:07 Blood Pressure 138/84 02/13/25 11:07 Pulse Oximetry 100 02/13/25 11:07 Oxygen Delivery Room Air 02/13/25 11:07 Temperature 97.8 F 02/13/25 11:07 Pulse Rate 89 02/13/25 11:07 Respiratory Rate 16 02/13/25 11:07 Blood Pressure 138/84 02/13/25 11:07 Pulse Oximetry 100 02/13/25 11:07 Oxygen Delivery Room Air 02/13/25 11:07 Reviewed MDM - Skin/Abscess/Foreign Bdy MDM Narrative Medical decision making narrative: Given patient's HPI is likely the patient has a contact dermatitis related to poison shana. Will treat empirically with steroid Dosepak. Patient denies any bug or tick bites, or any sick symptoms. Discussed physical exam findings. Advised supportive measures and signs/symptoms to go to the ER. Pt is appropriate for outpt treatment and f/u. Differential Diagnosis Differential diagnosis: Likely viral exanthem, urticaria, cellulitis and contact dermatitis Critical Care Time Critical Care Time Critical Care Time: No Discharge Plan Discharge Clinical Impression: Contact dermatitis Qualifiers: Contact dermatitis type: irritant Contact dermatitis trigger: unspecified trigger Qualified Code(s): L24.9 - Irritant contact dermatitis, unspecified cause Patient Disposition: Home Condition: Stable Instructions: Poison Shana (ED) Additional Instructions: It is likely her in contact with poison shana. You may use [id number]-[id number] hydrocortisone cream or calamine lotion as needed for itching. Try Tecnu ioil-opu-ukzaznw soap to wash the poison shana off. This can be purchased at [employer]. You may use Zyrtec as needed for itchiness or allergy symptoms. Please follow-up with her primary care provider in 1 week. If you develop any fevers, body aches, muscle aches, difficulty breathing or any other concerns please go to the ER immediately. Patient Language: Italian Prescriptions: New prednisone 10 mg tablets,dose pack 10 mg PO DIRECTED Qty: 41 0RF Rx Instructions: Take 6 tablets today then Take 4 tablets for 5 days then Take 2 tablets for 5 days then Take 1 tablet for 5 days No Action cholecalciferol (vitamin D3) 1,250 mcg (50,000 unit) capsule Testosterone TRIT 1 tablet tablet sublingual Qty: 1 Follow-up/Referrals: Paula,aGnesh Martinez MD [Primary Care Provider] - Time of Disposition: 11:39
== END 2025-02-13 11:43 | disposition home or self-care (01) ==
PROVIDERS: PCP Family Medicine
DX: L24.9 Irritant contact dermatitis, unspecified cause (principal)
CPT/HCPCS: 99203; G0463